=== PATIENT | female | born 1950 | race Caucasian/White ===

== ENCOUNTER 2023-05-28 17:30 | Emergency (ER) | payer MEDICARE, BC, SELFPAY ==
[2023-05-28 17:36] VITALS: BP 144/77; PULSE 96; RESP 18; TEMP 36.4; O2SAT 95; BMI 25.7
--- NOTE | 2023-05-28 17:43 | CRLHL7_ITS ---
For Patients: As a result of the Century Cures Act, medical imaging exams and procedure reports are released immediately into your electronic medical record. You may view this report before your referring provider. If you have questions, please contact your health care provider. Indication: Trauma. Technique: Left hand, 3 views. Comparison: None. Findings/Impression: Bones: Acute mildly displaced 5th digit proximal phalangeal diaphyseal fracture with volar apex angulation. Joint spaces: Unremarkable. Soft tissues: Unremarkable. Dictated by Ollie Winston MD @ 05/28/2023 6:37:54 PM (Electronically Signed)
--- NOTE | 2023-05-28 17:45 | ED_ITS ---
HPI - Fall General Chief Complaint: Fall/Minor Trauma Stated Complaint: L finger injury Time Seen by Provider: 05/28/23 17:37 History of Present Illness HPI Narrative: This 73-year-old female comes in with an injury to her left hand. She was walking through the door and tripped. She fell forward onto her outstretched left hand and comes in with an injury at the MP joint of the left 5th finger. Her finger is angulated away from the others typical of a fracture or dislocation. The patient states that she did hit her head but did not have loss of consciousness. She is not on any anticoagulants. She was able to get up and ambulate normally. She does not report a headache or any other symptoms. She does have an abrasion on her left knee. Related Data Previous Rx's Medication Instructions Recorded cephalexin 500 mg capsule 500 mg PO TID 5 days #15 caps 05/28/23 Allergies Allergy/AdvReac Type Severity Reaction Status Date / Time levofloxacin [From Levaquin] Allergy Verified 05/28/23 17:36 Review of Systems Status of ROS: Reports: 10 or more systems reviewed and unremarkable except as noted in History and below Narrative: Constitutional: No fevers, no weight gain or loss. Eyes: No discharge. No vision changes. HENT: No congestion, no sore throat, no ear pain. Cardiovascular: No chest pain, no palpitations. Respiratory: No shortness of breath, no wheezes, no cough. Gastrointestinal: No abdominal pain, no vomiting, no diarrhea. Genitourinary: No dysuria, no hematuria. Musculoskeletal: Injury of the left hand at the 5th MP joint. Skin: No rashes, no pruritis. Neurological: No dizziness, weakness, sensory change, speech change. Endo/Heme/Allergies: No bruising or bleeding. No polydipsia. Pysch: no suicidality, no anxiety, no insomnia. All other systems reviewed and are negative. PFSH PFSH Social History Smoking Status: Never smoker How often do you have a drink containing alcohol: never AUDIT-C Alcohol total score: 0 Non-prescribed substance use: denies use service: No Exam Narrative: Exam Narrative: Constitutional: Well-developed, well-nourished, no acute distress. HEENT: Normocephalic, atraumatic. Neck: Normal range of motion. Nontender. Supple. Heart: Regular. No murmurs. Normal rate. Intact distal pulses. Lungs: Clear to auscultation. No chest discomfort. No wheezes, rhonchi, or rales. Abdomen: Normal bowel sounds. Nontender. No rebound tenderness. Genitalia: Deferred. Back: No midline tenderness. Normal range of motion. Extremities: The left little finger is displaced away from the others at the MP joint. Decreased range of motion at this joint. There is a small skin injury on the dorsal aspect of this left little finger. Superficial abrasion over the left anterior knee. Skin: Intact. No rash. Warm. No erythema or pallor. Neurologic: No altered sensation. No weakness. Alert and oriented. Psychiatric: No suicidality. No anxiety or depression. No insomnia. Nursing notes and vitals signs are reviewed. Const: Vital Signs, click to edit/add: Vital Signs - 24 hr 05/28/23 17:36 Temperature 97.5 F L Pulse Rate [Right Pulse Oximeter] 96 Respiratory Rate 18 Blood Pressure [Ri ght Upper Arm] 144/77 H Pulse Oximetry 95 Oxygen Delivery Me thod Room Air Course Vital Signs Vital signs: Initial Vital Signs Temperature 97.5 F L 05/28/23 17:36 Temperature Source Temporal Artery Scan 05/28/23 17:36 Pulse Rate 96 05/28/23 17:36 Respiratory Rate 18 05/28/23 17:36 Blood Pressure 144/77 H 05/28/23 17:36 Blood Pressure Mean 99 05/28/23 17:36 Blood Pressure Position Sitting 05/28/23 17:36 Pulse Oximetry 95 05/28/23 17:36 Oxygen Delivery Method Room Air 05/28/23 17:36 Vital Signs Temperature 97.5 F L 05/28/23 17:36 Pulse Rate 96 05/28/23 17:36 Respiratory Rate 18 05/28/23 17:36 Blood Pressure 144/77 H 05/28/23 17:36 Pulse Oximetry 95 05/28/23 17:36 Oxygen Delivery Method Room Air 05/28/23 17:36 Temperature 97.5 F L 05/28/23 17:36 Pulse Rate 96 05/28/23 17:36 Respiratory Rate 18 05/28/23 17:36 Blood Pressure 144/77 H 05/28/23 17:36 Pulse Oximetry 95 05/28/23 17:36 Oxygen Delivery Method Room Air 05/28/23 17:36 MDM - Fall MDM Narrative Medical decision making narrative: This patient comes in for evaluation of the finger injury. She fell with an outstretched arm. She does not have any other significant injury that requires workup. She does have an abrasion on her left knee which was cleansed and bandaged. The dorsal aspect of the proximal portion of her left little finger has a small skin wound that is likely related to the fracture. X-ray imaging does show a fracture of the proximal portion of this finger with some angulatio n. I discussed options for placing this finger in a better position. I did include some pain relieving options with the patient but she stated that she preferred to have me reduce the finger in a better position without any medicines for pain. I did so with what appears to be a good position for finger. She did not have much discomfort in doing this. Follow-up x-ray does show good alignment. The patient is placed in a finger splint and her little finger is jamilah-taped also to the ring finger. I advised her to follow-up with orthopedic clinic. Mttx-ajr-ikkypha medications as needed and directed may also be used. The small skin wound that can be viewed as a open fracture of this finger. She did receive a prescription for Keflex. Discharge Plan Discharge Clinical Impression: Fracture of finger of left hand Patient Disposition: Home, Self-Care Condition: Improved Additional Instructions: Take medication as prescribed. Use afia-icx-mpxzowu medicines also as needed and directed for pain relief. Keep splint in place. Follow-up with orthopedic clinic by calling [phone] for appointment. Return if worsening. Prescriptions: New cephalexin 500 mg capsule 500 mg PO TID 5 Days Qty: 15 0RF Follow Up/Referrals: Danielle Taylor MD [Primary Care Provider] - Stand Alone Forms: [employer] Info Instructions
--- NOTE | 2023-05-28 18:38 | CRLHL7_ITS ---
For Patients: As a result of the Cures Act, medical imaging exams and procedure reports are released immediately into your electronic medical record. You may view this report before your referring provider. If you have questions, please contact your health care provider. INDICATION: Postreduction of left 5th digit. TECHNIQUE: Left small finger 3 views. Permanently recorded images are archived. COMPARISON: Left hand radiographs from the same day. FINDINGS/IMPRESSION : Interval reduction of the small finger proximal phalanx fracture into anatomic alignment. Soft tissue swelling about the small finger. No other significant bone or joint abnormality. Dictated by Jaquan Don MD @ 05/28/2023 7:17:50 PM (Electronically Signed)
--- NOTE | 2023-05-28 19:02 | ED.NURSE ---
Cleansed abrasion to knee with hibiclens, applied bacitractin, placed bandage on top.
[2023-05-28 19:22] VITALS: BP 142/64; PULSE 82; RESP 16; O2SAT 97
== END 2023-05-28 19:25 | disposition home or self-care (01) ==
PROVIDERS: Emergency Provider Emergency Medicine Emergency Medical Services; PCP Family Medicine
DX: S62.607A Fracture of unspecified phalanx of left little finger, initial encounter for closed fracture (principal); W18.30XA Fall on same level, unspecified, initial encounter
CPT/HCPCS: 29130; 73130; 73140; 99283; 99284

== ENCOUNTER 2023-05-29 16:57 | Emergency (ER) | payer MEDICARE, BC, SELFPAY ==
--- NOTE | 2023-05-29 17:38 | ED.NURSE ---
Patient's finger splint that was placed yesterday was cutting into her palm. She was fit with alternate splint.
[2023-05-29 17:41] VITALS: BP 104/64; PULSE 86; RESP 16; TEMP 36.2; O2SAT 98
--- NOTE | 2023-06-02 17:22 | ED.GENADULT ---
HPI - General Adult General Stated complaint: L finger pain Time Seen by Provider: 05/29/23 17:58 History of Present Illness HPI narrative: 73-year-old woman presenting to the emergency department due to discomfort of splint. Was seen yesterday and diagnosed with a displaced proximal 5th finger fracture here in this emergency department. This was reduced and splinted. The splint is now digging into her palm. I see Ms. Patton in the triage room due to busy emergency department. Related Data Previous Rx's Medication Instructions Recorded cephalexin 500 mg capsule 500 mg PO TID 5 days #15 caps 05/28/23 Allergies Allergy/AdvReac Type Severity Reaction Status Date / Time levofloxacin [From Levaquin] Allergy Verified 05/28/23 17:36 PFSH PFS Social History Smoking Status: Never smoker How often do you have a drink containing alcohol: never AUDIT-C Alcohol total score: 0 Non-prescribed substance use: denies use service: No Exam Narrative: Exam Narrative: Very pleasant. Positive affect. The alignment of the left 5th finger looks quite good. She is well-perfused peripherally. There is erythema and erosion initiating in the palmar surface skin ulnar side from the proximal-most aspect of the volar splint that was placed. Const: Documenting provider has reviewed patient's vital signs: yes Course Vital Signs Vital signs: Initial Vital Signs Temperature 97.2 F L 05/29/23 17:41 Temperature Source Temporal Artery Scan 05/29/23 17:41 Pulse Rate 86 05/29/23 17:41 Respiratory Rate 16 05/29/23 17:41 Blood Pressure 104/64 05/29/23 17:41 Blood Pressure Mean 77 05/29/23 17:41 Pulse Oximetry 98 05/29/23 17:41 Oxygen Delivery Method Room Air 05/29/23 17:41 Vital Signs Temperature 97.2 F L 05/29/23 17:41 Pulse Rate 86 05/29/23 17:41 Respiratory Rate 16 05/29/23 17:41 Blood Pressure 104/64 05/29/23 17:41 Pulse Oximetry 98 05/29/23 17:41 Oxygen Delivery Method Room Air 05/29/23 17:41 Temperature 97.2 F L 05/29/23 17:41 Pulse Rate 86 05/29/23 17:41 Respiratory Rate 16 05/29/23 17:41 Blood Pressure 104/64 05/29/23 17:41 Pulse Oximetry 98 05/29/23 17:41 Oxygen Delivery Method Room Air 05/29/23 17:41 Medical Decision Making MDM Narrative Medical decision making narrative: I review images needing confirmation of location of fracture. Notes are reviewed. Switching over to a dorsal placement for her splint I cut foam-backed aluminum to fit. Smooth-taped to the 4th finger. Secured around palm. She notes being much more comfortable. I think this will secure her finger/fracture appropriately however even better might be an ulnar gutter splint not extending past the wrist. I did offer this but Ms. Patton needs to get moving to another appointment and she is quite comfortable with this new splint. See patient discharge plan Medical Records Medical records reviewed: Yes I reviewed the patient's medical records Discharge Plan Discharge Clinical Impression: Encounter for assessment of cast Patient Disposition: Home, Self-Care Condition: Improved Additional Instructions: Recommending follow-up in a couple of weeks to confirm proper healing. Prescriptions: No Action cephalexin 500 mg capsule 500 mg PO TID 5 Days Qty: 15 0RF Follow Up/Referrals: Danielle Taylor MD [Primary Care Provider] -
== END 2023-05-29 17:59 | disposition home or self-care (01) ==
PROVIDERS: Emergency Provider Family Medicine; PCP Family Medicine
DX: Z46.89 Encounter for fitting and adjustment of other specified devices (principal)
CPT/HCPCS: 99281

== ENCOUNTER 2023-07-20 12:45 | Outpatient (RCR) | payer MEDICARE, BC, SELFPAY ==
--- NOTE | 2023-07-20 13:31 | OT.OPOE ---
OT Outpatient Ortho Eval OT Outpatient Ortho Eval* Start: 07/20/23 11:48 Freq: Status: Active Protocol: Document 07/20/23 11:49 LEILANI (Rec: 07/20/23 13:29 LEILANI [id number]) E-signed By Anastasiya Farley OTR/L, CLT OT OP Ortho Eval Details Complexity Complexity Low Insurance Information Insurance Information Medicare B Outpatient History/Precautions Current Condition/Medical Diagnosis Referring Provider Dr. Ru Peralta Treatment Diagnosis M25.642 Stiffness of Left Hand , Lack of coordination R27.8 Date of Onset 05/28/23 Other Precautions Copied from chart on 06/17/23 provider note IMAGING: PA, Lateral, and Oblique views of the left hand little finger were obtained today. These show the transverse fracture at the midshaft of the proximal phalanx has some recurrent apex volar angulation, no real displacement PA, Lateral, and Oblique views of the left hand were obtained on from [facility] pre and post reduction. These show a transverse fracture of the midshaft of the proximal phalanx with apex volar angulation. The post- reduction films show an excellent reduction. ASSESSMENT: Left hand small finger proximal phalanx fracture PLAN: I told the patient that I think the amount of angulation is acceptable. This will leave her with some permanent flexion contracture at the PIP joint. I anticipate this will not affect her function. She agrees and wishes to continue non operative management. Therefore, a new volarly placed Alumafoam splint was applied. She has a hiking trip in [facility] planned for 2 weeks from now. I would like to see her back when she returns to [place] with three views of her left hand, small finger. A prescription for occupational therapy was sent to begin at that point. Other Conditions Fracture of finger of left hand (Acute) S62.609A - Fracture of unspecified phalanx of unspecified finger, initial encounter for closed fracture (ICD-10) S/P lumpectomy, right breast ( Acute) 06/15/2023 Z98.890 - Other specified postprocedural states (ICD-10) Vasovagal episode (Acute) R55 - Syncope and collapse ( ICD-10) Exacerbation of asthma (Acute) J45.901 - Unspecified asthma with (acute) exacerbation (ICD -10) Erysipelas (Acute 03/15/13) A46 - Erysipelas (ICD-10) Cellulitis (Acute) L03.90 - Cellulitis, unspecified (ICD-10) Medical History (Reviewed @ 09:42 by Lashell Ortiz ~ RN, RN) Fracture of left wrist S62.102A - Fracture of unspecified carpal bone, left wrist, initial encounter for closed fracture (ICD-10) Cancer of left breast (05/2008 ) C50.912 - Malignant neoplasm of unspecified site of left female breast (ICD-10) Medical/Functional History Medical History Reviewed Yes Prior Level of Function/Mobility Patient is fully Indep with ADLs and IADLs Social History Employment Status Retired Ortho Subjective Subjective Subjective I think my little finger is doing pretty well, I feel fine doing a program on my own Pain Assessment Pain Present Pain Present No Pain Reported Goniometric Comments Goniometric Comments Goniometric Comments little finger of the L hand DIP 0/62 degrees little finger of the L hand PIP 12-82 degrees little finger of the L hand MCP 4-90 degrees Hand Pinch/Corrections Nurse Strength Hand Left Corrections Nurse Strength Position 1 (lbs) 26 Corrections Nurse Strength Position 2 (lbs) 31 Lateral Pinch Strength (lbs) 11 Three Point Pinch (lbs) 10 Tip Pinch Strength (lbs) 9 Right Corrections Nurse Strength Position 1 (lbs) 40 Corrections Nurse Strength Position 2 (lbs) 43 Lateral Pinch Strength (lbs) 11 Three Point Pinch (lbs) 11 Tip Pinch Strength (lbs) 9 OT Problems Problems Problems Decreased Strength,Decreased Range of Motion,Decreased Dexterity,Decreased Coordination,Lifting,Gripping, Pinching Patient Potential Good Assessment Assessment Assessment 73 year old female had a mechanical fall on 05/28/2023 and injured her left hand small finger. This was reduced in the emergency department. She was placed in an Alumafoam splint. She has never injured this finger previously. She is right-hand dominant. She is now 7.5 weeks post op from [facility]. Goni measurements of the little finger (L hand) were as follows: little finger of the L hand DIP 0/62 degrees little finger of the L hand PIP 12-82 degrees little finger of the L hand MCP 4-90 degrees POC written as PRN-as patient expressed the desire to rehab on her own with no formal therapy sessions scheduled past today. Occupational Therapy Treatment Plan - OP Potential Rehabilitation Potential Good Barriers Barriers to goal attainment NONE Set Goals Goals Set with Patient Yes Goals Goals 1. Patient will gain L hand little finger motion from EVAL measurements 07/20/23 little finger of the L hand DIP 0/62 degrees little finger of the L hand PIP 12-82 degrees little finger of the L hand MCP 4-90 degrees Target Date 8 weeks Treatment Plan Treatment Plan Evaluation,Edema Control,Joint Mobilization,Manual Therapy, Ultrasound,Therapeutic Exercise,Education Expected Frequency As Needed Expected Duration 8-10 Weeks Home Program Home Program Home Program Initiated Home Program Specifics Access Code: [email or web address] URL: [email or web address] Date: 07/20/2023 Prepared by: Anastasiya Farley Exercises - Seated Finger Composite Flexion Stretch - 1 x daily - 7 x weekly - 3 sets - 10 reps - Seated Finger DIP Flexion AROM with Blocking - 1 x daily - 7 x weekly - 3 sets - 10 reps - Seated Claw Fist AROM - 1 x daily - 7 x weekly - 3 sets - 10 reps - Seated Finger PIP AROM - 1 x daily - 7 x weekly - 3 sets - 10 reps - Finger PIP Flexion Extension with Blocking - 1 x daily - 7 x weekly - 3 sets - 10 reps - Hand PROM Finger Extension - 1 x daily - 7 x weekly - 3 sets - 10 reps - Seated Finger MP Extension AROM with Blocking - 1 x daily - 7 x weekly - 3 sets - 10 reps - Seated Finger PIP Flexion PROM - 1 x daily - 7 x weekly - 3 sets - 10 reps Certification Certification I Certify That: Therapy Services Provided, Therapy Plan Established, Therapy Plan Reviewed Recertification Information Recertification Information Initial Certification Date 07/20/23 Recertification Due Date 10/18/23 Provider Signature Shows Agreement With POC & Medical Necessity Physician Comment/Change Comment or Changes Physician NPI Number #
== END 2023-11-17 23:59 | disposition home or self-care (01) ==
PROVIDERS: PCP Family Medicine; Visit Provider Orthopaedic Surgery
DX: S62.607A Fracture of unspecified phalanx of left little finger, initial encounter for closed fracture (principal); M25.642 Stiffness of left hand, not elsewhere classified; R27.8 Other lack of coordination; Z51.89 Encounter for other specified aftercare
CPT/HCPCS: 97110; 97165; X5282

== ENCOUNTER 2023-12-24 12:27 | Emergency (ER) | payer MEDICARE, BC, SELFPAY ==
[2023-12-24 12:29] VITALS: BP 105/65; PULSE 100; RESP 16; TEMP 36.9; O2SAT 98; BMI 25.2
--- NOTE | 2023-12-24 12:52 | ED.GENADULT ---
HPI - General Adult General Chief complaint: Extremity Pain/Injury, Upper Stated complaint: Swollen L arm Time Seen by Provider: 12/24/23 12:37 History of Present Illness HPI narrative: This 73-year-old female comes in with redness and warmth in her left upper extremity. She has history of breast cancer and chronic lymphedema in this arm. She does not report any fevers. She started to notice these symptoms yesterday. Related Data Previous Rx's Medication Instructions Recorded cephalexin 500 mg capsule 500 mg PO QID #30 caps 12/24/23 Allergies Allergy/AdvReac Type Severity Reaction Status Date / Time giovana flavor Allergy Severe Swelling Verified 10/21/23 09:39 of Lip/Tongue/Throat parsley Allergy Severe Swelling Verified 10/21/23 09:39 of Lip/Tongue/Throat rice Allergy Severe Swelling Verified 10/21/23 09:39 of Lip/Tongue/Throat wheat dextrin Allergy Severe Swelling Verified 10/21/23 09:39 [From Benefiber (wheat of dextrin)] Lip/Tongue/Throat levofloxacin [From Levaquin] Allergy Verified 10/21/23 09:39 Review of Systems Status of ROS: Reports: 10 or more systems reviewed and unremarkable except as noted in History and below Narrative: Constitutional: No fevers, no weight gain or loss. Eyes: No discharge. No vision changes. HENT: No congestion, no sore throat, no ear pain. Cardiovascular: No chest pain, no palpitations. Respiratory: No shortness of breath, no wheezes, no cough. Gastrointestinal: No abdominal pain, no vomiting, no diarrhea. Genitourinary: No dysuria, no hematuria. Musculoskeletal: Normal range of motion. Skin: No rashes, no pruritis. Erythema and warmth in the left upper extremity. Neurological: No dizziness, weakness, sensory change, speech change. Endo/Heme/Allergies: No bruising or bleeding. No polydipsia. Pysch: no suicidality, no anxiety, no insomnia. All other systems reviewed and are negative. [facility] Medical History Fracture of left wrist ?S62.102A - Fracture of unspecified carpal bone, left wrist, initial encounter for closed fracture (ICD-10) Cancer of left breast (05/2008) ?C50.912 - Malignant neoplasm of unspecified site of left female breast (ICD-10) Surgical History Previous section ?Z98.891 - History of uterine scar from previous surgery (ICD-10) History of appendectomy ?Z90.49 - Acquired absence of other specified parts of digestive tract (ICD-10) History of lumpectomy of left breast (06/03/08) ?Z98.890 - Other specified postprocedural states (ICD-10) History of reduction of closed fracture (02/03/19) ?Z87.81 - Personal history of (healed) traumatic fracture (ICD-10) Family History Maternal Grandmother Colon cancer Social History Smoking Status: Never smoker How often do you have a drink containing alcohol: never AUDIT-C Alcohol total score: 0 Non-prescribed substance use: denies use service: No Exam Narrative: Exam Narrative: Constitutional: Well-developed, well-nourished, no acute distress. HEENT: Normocephalic, atraumatic. Neck: Normal range of motion. Nontender. Supple. Heart: Regular. No murmurs. Normal rate. Intact distal pulses. Lungs: Clear to auscultation. No chest discomfort. No wheezes, rhonchi, or rales. Abdomen: Normal bowel sounds. Nontender. No rebound tenderness. Genitalia: Deferred. Back: No midline tenderness. Normal range of motion. Extremities: Normal range of motion. No injury. Skin: Intact. Erythema in the left upper extremity extending from the elbow up toward the shoulder on the dorsal aspect primarily. She also has some small area of erythema on the left breast. Neurologic: No altered sensation. No weakness. Alert and oriented. Psychiatric: No suicidality. No anxiety or depression. No insomnia. Nursing notes and vitals signs are reviewed. Const: Vital Signs, click to edit/add: Vital Signs - 24 hr 12/24/23 12:29 Temperature 98.4 F Pulse Rate [Pulse Oximeter] 100 Respiratory Rate 16 Blood Pressure [Ri ght Upper Arm] 105/65 Pulse Oximetry 98 Oxygen Delivery Me thod Room Air Course Vital Signs Vital signs: Initial Vital Signs Temperature 98.4 F 12/24/23 12:29 Temperature Source Temporal Artery Scan 12/24/23 12:29 Pulse Rate 100 12/24/23 12:29 Respiratory Rate 16 12/24/23 12:29 Blood Pressure 105/65 12/24/23 12:29 Blood Pressure Mean 78 12/24/23 12:29 Blood Pressure Position Supine 12/24/23 12:29 Pulse Oximetry 98 12/24/23 12:29 Oxygen Delivery Method Room Air 12/24/23 12:29 Vital Signs Temperature 98.4 F 12/24/23 12:29 Pulse Rate 100 12/24/23 12:29 Respiratory Rate 16 12/24/23 12:29 Blood Pressure 105/65 12/24/23 12:29 Pulse Oximetry 98 12/24/23 12:29 Oxygen Delivery Method Room Air 12/24/23 12:29 Temperature 98.4 F 12/24/23 12:29 Pulse Rate 100 12/24/23 12:29 Respiratory Rate 16 12/24/23 12:29 Blood Pressure 105/65 12/24/23 12:29 Pulse Oximetry 98 12/24/23 12:29 Oxygen Delivery Method Room Air 12/24/23 12:29 Medical Decision Making MDM Narrative Medical decision making narrative: This patient comes in with symptoms typical of a cellulitis. She is at increased risk for this to occur given her history of breast cancer with surgery that caused chronic lymphedema in the left upper extremity. I did discuss lab and imaging options but these were declined for now in a process of shared decision making. Patient did receive a prescription for Keflex and I did describe findings that would indicate a need for return and re-evaluation. Discharge Plan Discharge Clinical Impression: Cellulitis Patient Disposition: Home, Self-Care Condition: Stable Additional Instructions: Take medication as prescribed. Follow up with MD or return if worsening. Prescriptions: New cephalexin 500 mg capsule 500 mg PO QID Qty: 30 0RF Follow Up/Referrals: Daneille Taylor MD [Primary Care Provider] - Stand Alone Forms: [employer] Info Instructions
== END 2023-12-24 13:26 | disposition home or self-care (01) ==
LOC: ED 13:13
PROVIDERS: Emergency Provider Emergency Medicine Emergency Medical Services; PCP Family Medicine
DX: L03.114 Cellulitis of left upper limb (principal)
CPT/HCPCS: 99283; 99284

== ENCOUNTER 2024-04-12 12:48 | Outpatient (RCR) | payer MEDICARE, BC, SELFPAY | END 2024-04-12 14:06 | disposition home or self-care (01) | PROVIDERS: PCP Family Medicine; Visit Provider Family Medicine | DX: M25.512 Pain in left shoulder (principal); Z51.89 Encounter for other specified aftercare | CPT/HCPCS: 97161; 97535 ==

== ENCOUNTER 2025-05-31 16:39 | Emergency (ER) | payer MEDICARE, BC, SELFPAY ==
--- OUTSIDE RECORDS SUMMARY | 2025-05-31 16:42 | XMS_ITS | Clinical Summary ---
Author Organization [email or web address] [facility] Address [address] [place] [address] Care Team Providers Care Driver Recruiter Name Role Phone Guero Amador Melissa Jean MD Primary Care Provider [phone] Allergies Active Allergy Reactions Criticality Noted Date Comments Levofloxacin Erythema facial erythema/itching [place] Flavor Unlisted Allergen (Include Detail In Comments) Angioedema 04/27/2008 Tabouli--shania cole boulgar Medications clobetasol 0.05% (TEMOVATE 0.05% OINTMENT) 0.05 % ointmentIndicati ons:Hand dermatitis Apply topically to affected area(s) two times daily. Apply to hand rash 30 g 11/24/19 23 Active Additional Information Patient taking differently:Topical BID,Apply to rash in multiple areas, Reported on 09/21/2024 Nystop powder Apply topically to affected area(s) each time if needed. 04/01/20 23 Active desonide 0.05% (TRIDESILON 0.05% CREAM) 0.05 % creamIndications :Hand dermatitis APPLY TO THE AFFECTED AREA UNDER THE ARMS AND GROIN AREA ONCE DAILY FOR UP TO TWO WEEKS. MAY REPEAT NEEDED FOR FLARE UPS. 15 g 07/02/20 23 Active buPROPion (WELLBUTRIN XL) 150 mg Extended-Release tabletIndication s:Anxiety Take 1 Tablet (150 mg) by mouth once daily in the morning. 90 Tablet 2 09/19/20 24 Active valACYclovir (VALTREX) 1 gram tabletIndication s:Cold sore TAKE 2 TABLETS BY MOUTH TWICE DAILY FOR 1 DAY 14 Tablet 2 09/22/20 24 Active triamcinolone 0.1 % lotionIndication s:Rash Apply topically to affected area(s) three times daily. 120 mL 11/02/19 25 Active triamcinolone 0.1 % ointmentIndicati ons:Hand dermatitis Apply topically to affected area(s) three times daily. 80 g 11/02/19 25 Active loratadine (CLARITIN) 10 mg tabletIndication s:Hand dermatitis,Rash Take 1 Tablet (10 mg) by mouth once daily. 30 Tablet 11/02/19 25 Active albuterol HFA (Ventolin HFA) 90 mcg/actuation inhalerIndicatio ns:Mild intermittent reactive airway disease without complication (HC) Inhale 2 Puffs by mouth every 4 hours if needed for Shortness Of Breath. 2 Each 3 04/24/20 25 Active EPINEPHrine (EPIPEN) 0.3 mg/0.3 mL auto-injectorInd ications:Bee sting allergy Inject 0.3 mg (1 Pen) intramuscular one time if needed for Allergic Reaction. 2 Each 1 04/24/20 25 Active hydrOXYzine HCL (ATARAX) 25 mg tabletIndication s:Hand dermatitis Take 1 Tablet (25 mg) by mouth at bedtime if needed for Itching. 90 Tablet 3 04/24/20 25 Active atovaquone-progu daisy (250-100 mg) (MALARONE) 250-100 mg tabletIndication s:Pharmacologic therapy Take 1 Tablet by mouth once daily. Begin 1-2 days before and continue until 1 week after exposure for prevention of malaria. 18 Tablet 04/24/20 25 Active acetaZOLAMIDE (DIAMOX) 125 mg tabletIndication s:Counseling for travel Take 125-250 mg by mouth two times daily. Begin 1 day before through 2 days after arriving at highest altitude. 4 Tablet 04/24/20 25 Active Active Problems Problem Noted Date Diagnosed Date Malignant neoplasm of female breast 04/05/2024 Cold sore 04/05/2024 Reactive airway disease without complication 11/2023 Vulvar dermatitis 04/05/2024 Stage 3a chronic kidney disease 04/05/2024 Adenomatous colon polyp 08/23/2019 Overview (08/19/2022): Colonoscopy 08/2019 3 polyps, repeat in 3 years Colonoscopy 08/2022 2-SSA, repeat in 5 years History of MRSA infection 02/01/2019 Knee pain, right 01/12/2019 Closed compression fracture of thoracic vertebra 10/13/2015 Overview (10/13/2015): Mild to moderate compression fx T-12 Osteopenia 09/19/2013 Overview (07/28/2019): Osteopenia and elevated frax score. Recommendation for advanced pharmacologic therapy. Patient declined so I have recommended Calcium 1500 mg and Vitamin D 2000 units per day in divided doses - along with significant weigh bearing exercise regularly. Warts 09/05/2013 Bee sting allergy 09/05/2013 Lymphedema of arm 03/31/2013 Overview (03/31/2013): Recent Cellulitis left arm Tinea corporis 01/17/2013 Unspecified asthma, with exacerbation 04/25/2011 Malignant neoplasm of other specified sites of female breast 04/25/2008 [facility] 11/23/2007 Overview (05/16/2008): colonoscopy 05/16/2008 Recheck 10 yrs. Encounters Date Type Department Care Team Description 05/31/2025 Nurse Triage [facility] [address] [place] [address] Danielle Taylor MD Back Pain 05/01/2025 Telephone [facility] [address] [place] [address] Shaqra, Ana Catarina, DO Questions 04/30/2025 Refill [facility] [address] [place] [address] Shaqra, Ana Catarina, DO Refill Request (Acetazolamide) 04/29/2025 Refill [facility] [address] [place] [address] Shaqra, Ana Catarina, DO Refill Request (Acetazolamide) 04/29/2025 Refill [facility] [address] [place] [address] Shaqra, Ana Catarina, DO Refill Request (Acetazolamide) 04/28/2025 Refill [facility] [address] [facility] [place] [address] Shaqra, Ana Catarina, DO Refill Request (Acetazolamide) 04/27/2025 Refill [facility] [address] [facility] [place] [address] Shaqra, Ana Catarina, DO Refill Request (Acetazolamide) 04/26/2025 Refill [facility] [address] [facility] [place] [address] Shaqra, Ana Catarina, DO Refill Request (Acetazolamide) 04/25/2025 Refill [facility] [address] [facility] [place] [address] Shaqra, Ana Catarina, DO Refill Request (Acetazolamide) 04/24/2025 10:35 AM CDT Office Visit [facility] [address] [facility] [place] [address] Shaqra, Ana Catarina, DO Travel (Judge, [place] 05/16/25 to 05/29/25, [place] [facility] [place] [facility] 04/24/2025 Travel from Last 3 Months Immunizations Immunization Administration Dates Next Due COVID-19 VACCINE SPIKEVAX (M ODERNA 50MCG/0.5ML) 12YO+ PFS 02/11/2024 COVID-19 vaccine (KnightHavenBio NTech 30mcg/0.3mL) 12YO+ BIVALENT PF, MDV 07/25/2022 COVID-19 vaccine (Cavium-Bio NTech 30mcg/0.3mL) PF, MDV 09/05/2021 Hepatitis A (Adult) 05/18/2015,11/13/2014 Hepatitis B (Adult) 02/11/2024,01/14/2023,2021 Influenza Virus, Unspecified 08/23/2018 Influenza, High-dose Inactivated 09/21/2024,08/05 Influenza, High-dose Quadriv alent Inactivated 07/24/2023 Influenza, IIV3 (Age >=3 years) 07/29/2013,07/16,07/05/2011 Influenza, IIV4 07/24/2014 Influenza, Inactivated AIIV4 (Age 65+ Years) Preserv Free 07/25/2022,12/06/2021,06/14/2020 Influenza, Inactivated IIV3 (Age 65+ Years) Preserv Free 07/14/2019,06/02/2017 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,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 Pneumococcal Poly,23-Valent (Pneumovax) 06/14/20 20,11/13/2014 Pneumococcal conj 13-Valent (Prevnar 13) 018 RSV, Recombinant ADJ Reconst ituted (Arexvy 120MCG/0.5mL) 08/13/2023 Td (Age >=7 Years) 02/12/1998 Tdap 10/22/2018,10/22/2018,11/23/2007 Typhoid (injectable) 04/24/2025,12/06/2021 Yellow Fever 01/14/2023 Zoster (Shingrix-RZV, recombinant) 06/21/2020,,04/04/2020 Zoster (Zostavax-ZVL, live) 09/22/2011 Family History Medical History Relation Name Comments Cancer-breast Maternal Aunt 70's Cancer-colon Maternal Grandmother dx age 72 Cancer-ovarian Maternal Grandmother 70's yrs old Cancer-ovarian Sister 2 Damaris Simpson Cancer Sister 4 Lizz uterine cancer Alcohol/Drug No Family History Allergies No Family History Anesthesia Problem No Family History Arthritis No Family History Asthma No Family History Blood Disease No Family History Cancer-prostate No Family History Diabetes No Family History Heart Disease No Family History Hyperlipidemia No Family History Hypertension No Family History Psychiatric illness No Family History Seizures No Family History Stroke No Family History Thyroid Disease No Family History Relation Name Status Comments Brother Zackary Alive Father Micah (Age 94) Maternal Aunt Maternal Grandmother Mother Damaris Simpson Sister 1 Zonia Alive Sister 2 Mita Alive pt's twin Sister 3 Charito Alive Sister 4 Lizz Sister 5 Rebecca Alive Social History Tobacco Use Types Packs/Day Years Used Date Smoking Tobacco: Never Smokeless Tobacco: Never Tobacco Cessation:Counseling Given: Yes Alcohol Use Standard Drinks/Week Comments Not Currently 0 (1 standard drink = 0.6 oz pur e alcohol) PHQ-2 Answer Date Recorded PHQ-2 TOTAL SCORE 0 09/17/2023 Social Connections Answer Date Recorded Do you often feel lonely or isolated from those around you? 0 07/20/2024 Financial Resource Strain Answer Date R ecorded Difficulty of Paying Living Expenses 3 07/20/2024 Difficulty of Paying Living Expenses Not on file 07/20/2024 Food Insecurity Answer Date Recorded Do you worry your food will run out before you are able to buy more? 1 07/20/2024 Transportation Needs Answer Date Record ed Does lack of transportation keep you from medica l appointments? 1 07/20/2024 Does lack of transportation keep you from work, meetings or getting things that you need? 1 07/20/2024 Housing Stability Answer Date Recorded What is your housing situation today? 1 07/20/2024 Utilities Answer Date Recorded Do you have trouble paying f or utilities (for example, heat, electricity, water, phone)? 1 07/20/2024 Comments No Sex and Gender Information Value Date Recorded Sex Assigned at Not on file Legal Sex Female 5:26 AM TUNA PURSE SEINER Gender Identity Not on file Sexual Orientation Not on file Occupation Industry Job Start Date Job End Date TEACHER Not on file Not on file Not on file Obstetrics History Para Term AB IAB SAB Ectopic Multiple Livin g Live Births 6 5 1 1 5 Date Outcome GA Total Labor Labor/2nd/3rd Weight Sex Type Anes PTL Catarina A1 A5 Name Clin SAB Para Para Para Para Para Last Filed Vital Signs Vital Sign Reading Time Taken Comments Blood Pressure 114/70 04/24/2025 10:50 AM CDT Pulse 74 04/24/2025 10:50 AM CDT Temperature 36.6 C (97.8 F) 06/25/2023 11:19 AM CDT Respiratory Rate 16 06/25/2023 11:19 AM CDT Oxygen Saturation 98% 04/24/2025 10:50 AM CDT Inhaled Oxygen Concentration - - Weight 68.6 kg (151 lb 4.8 oz) 04/24/2025 10:50 AM CDT Height 157.8 cm (5' 2.13) 09/17/2023 8:07 AM CS T Body Mass Index 27.56 09/17/2023 8:07 AM TUNA PURSE SEINER Plan of Treatment Upcoming Encounters Date Type Department Care Team (Late st Contact Info) Description 06/01/2025 10:50 AM CDT Office Visit [facility] [address] [place] [address] Danielle Taylor MD [address] [place] [address] 06/13/2025 1:45 PM CDT Appointment [facility] [place] [facility] [address] [place] [address] Health Maintenance Due Date Last Done Comments COVID-19 vaccine series (2023- season) 2024 02/11/2024, 08/20/2023, 07/25/2022, Additional history exists BMI (ht and wt on same day) for age 18+ 09/17/2024 09/17/2023, 06/25/2023, 06/12/2023, Additional history exists Depression screening for age 12+ 09/17/2024 09/17/2023, 09/17/2023, 05/09/2022, Additional history exists Medicare Wellness for age 65+ 09/17/2024, 03/25/2022, 07/14/2019 Influenza Vaccine (#1) 2025 , 07/25/2022, 12/06/2021, Additional history exists Colonoscopy through age 75 08/13/202508/13, 08/13/2022, 08/13/2022, Additional history exists Lipids for age 45-75 09/17/2028 09/17/2023, 03/25/2022, 07/14/2019, Additional history exists Tetanus booster 10/22/2028 10/22/2018, 10/05, 11/23/2007, Additional history exists DEXA/DXA scan for age 65+ Completed 07/19/2019, 12/2012 Pneumococcal series for age 50+ Completed 06/14/2020, 08/30/2018, 11/13/2014 Zoster (shingles) series for age 50+ Completed 06/21/2020, 04/05/2020, 04/04/2020, Additional history exists Hepatitis C screening for ag e 18-79 Completed 06/12/2023 RSV vaccine for adults or Completed 08/13/2023 Hepatitis B series for 19+ Completed 02/10, 01/14/2023, 12/06/2021 Medical Devices Implanted Type Area Statistician Mathematical Device Identifier Shelf Expiration Date Model / Serial / Lot Port X Port Mri 6fr Venous Cath Kit [id number] - [id number] Implanted:Qty: 1 on 07/04/2008 at [facility] [employer] [id number] / / [id number] Procedures Procedure Name Priority Date/Time Associated Diagnosis Comments LIPID PANEL W REFLEX MEASURED LDL Routine 09/17/2023 10:54 AM TUNA PURSE SEINER Lipid screening ANTI HCV Routine 06/12/2023 4:06 PM CDT Need for hepatitis C screening test COLONOSCOPY SCREENING Routine 08/13/2022 7:30 AM TUNA PURSE SEINER History of colon polyps XR DXA BONE DENSITY 2 SITES AXIAL Routine 07/19/2019 2:49 PM CDT Menopause from Last 3 Months or Most Recently Relevant to Health Maintenance Results * LIPID PANEL W REFLEX MEASURED LDL (09/17/2023 10:54 AM TUNA PURSE SEINER) CHOLESTEROL,TOTAL 174 100 - 199 mg/dL 09/17/2023 6:19 PM TUNA PURSE SEINER [facility] [employer] [facility] Comment: Cholesterol, Total Reference Ranges Desirable <200 mg/dL Borderline 200-239 mg/dL High >=240 mg/dL TRIGLYCERIDES 48 <150 mg/dL 09/17/2023 6:19 PM TUNA PURSE SEINER [facility] [employer] [facility] HDL CHOLESTEROL 85 >40 mg/dL 6:19 PM TUNA PURSE SEINER [facility] [employer] [facility] NON-HDL CHOLESTEROL 89 <145 mg/dl 09/17/2023 6:19 PM [facility] CHOL/HDL RATIO 2.05 <4.50 09/17/2023 6:19 PM TUNA PURSE SEINER [facility] LDL CHOLESTEROL 79 <=130 mg/dL 09/17/2023 6:19 PM TUNA PURSE SEINER [facility] [employer] [facility] VLDL CHOLESTEROL 10 <=30 mg/dL 09/17/2023 6:19 PM TUNA PURSE SEINER [facility] PROVIDER ORDERED STATUS RANDOM 09/17/2023 6:19 PM TUNA PURSE SEINER [facility] Blood BLOOD SPECIMEN / Unknown Venipuncture / Unknown 09/17/2023 10:54 AM TUNA PURSE SEINER 09/17/2023 10:56 AM TUNA PURSE SEINER us Danielle Taylor MD CHEMISTRY Final Resul t [facility] [address] [place] [id number], [place] * ANTI HCV (06/12/2023 4:06 PM CDT) HEPATITIS C ANTIBODY Non-Reacti ve Non-React darci 06/15/2023 11:33 PM CDT [facility] Comment:Please note, per www .CDC.gov: If a patient is known to be at high risk of HCV infection, or is symptomatic, and the physician's suspicion of HCV infection is high, HCV RNA testing is often employed and is of diagnostic value, even after an initial negative anti-HCV test result. Blood BLOOD SPECIMEN / Unknown Venipuncture / Unknown 06/12/2023 4:06 PM CDT 06/12/2023 4:07 PM CDT us Stephon Galvez MD SEND OUTS Final Res ult [facility] SENDOUT INTERNAL ZIP [address] [place] [id number] * COLONOSCOPY (08/13/2022 7:50 AM TUNA PURSE SEINER) 08/13/2022 7:50 AM TUNA PURSE SEINER Narrative Transcriptions Tonny Wolfe MD - 08/13/2022 8:36 AM CST Patient Name: Heather Patton Procedure Date: 08/13/2022 Gender: Female Date of : 1950 Admit Type: Outpatient Procedure: Colonoscopy Proceduralist: Tonny Wolfe MD , Angelita García RN(Nurse), Jennifer Galvez (Nurse) Referring MD: Danielle Taylor Indications/Pre-Op Diagnosis: High risk colon cancer surveillance:Personal history of sessile serrated colon polyp(less than 10 mm in size) with no dysplasia, Last colonoscopy: August 2019 Medications: Fentanyl 100 micrograms IV, Midazolam 2 mgIV, The level of sedation administered wasmoderate Procedure Description: The patient had risks, benefits and alternatives explained to andgave informed consent. The patient had a stable cardiopulmonary status and judged an adequate candidate for conscious sedation. The endoscope [id number]-[id number] [id number] was passed through the anus andadvanced to the cecum, identified by appendiceal orifice and ileocecal valve.The colonoscopy was performed without difficulty. The patient toleratedthe procedure well. The quality of the bowel preparation was good. The ileocecal valve, appendiceal orifice, and rectum were photographed. Complications: No immediate complications. Estimated Blood Loss & Specimen: Estimated blood loss: none. Specimen collected - Yes and sent to Laboratory Findings: The perianal and digital rectal examinations were normal. Two sessile polyps were found in the transverse colon. The polypswere 3 mm in size. These polyps were removed with a cold snare. Resectionand retrieval were complete. Scattered small and large-mouthed diverticula were found in theentire colon. A 3 mm polyp was found in the sigmoid colon. The polyp was sessile.The polyp was removed with a cold snare. Resection was complete, but the polyp tissue was not retrieved. The exam was otherwise without abnormality on direct and retroflexion views. Impressions/Post-Op Diagnosis: - Two 3 mm polyps in the transverse colon, removed with a cold snare. Resected and retrieved. - Diverticulosis in the entire examined colon. - One 3 mm polyp in the sigmoid colon, removed with a cold snare. Complete resection. Polyp tissue not retrieved. - The examination was otherwise normal on direct and retroflexionviews. Recommendation: - Patient has a contact number available for emergencies. The signsand symptoms of potential delayed complications were discussed with the patient. Return to normal activities tomorrow. Written discharge instructions were provided to the patient. - Resume previous diet. - Continue present medications. - Await pathology results. - Repeat colonoscopy is recommended for surveillance. The colonoscopy date will be determined after pathology results from today's exambecome available for review. Moderate Sedation: A time out was performed before the procedure. Moderate (conscious) sedation was administered by the endoscopy nurse and supervised bythe endoscopist. The following parameters were monitored: oxygensaturation, heart rate, blood pressure, EKG, CO2, respiratory rate, adequacy of pulmonary ventilation and reponse to care. Please refer to the patient's medical record flowsheets and nursing notes for moderate sedation details. Total physician intraservice time was 23 minutes. Tonny Wolfe MD 08/13/2022 8:36:36 AM This report has been signed electronically. Note Initiated On: 08/13/2022 7:50 AM Procedure Code(s): --- Professional --- 39383, Colonoscopy, flexible; with removalof tumor(s), polyp(s), or other lesion(s) bysnare technique Diagnosis Code(s): --- Professional --- Z86.010, Personal history of colonicpolyps D12.3, Benign neoplasm of transverse colon (hepatic flexure or splenic flexure) D12.5, Benign neoplasm of sigmoid colon K57.30, Diverticulosis of large intestine without perforation or abscess withoutbleeding CPT copyright 2020 [employer]. All rights reserved. The codes documented in this report are preliminary and upon labor commissioner reviewmay be revised to meet current compliance requirements. Scope In: 8:09:22 AM Scope Withdrawal Time 0 hours 15 minutes 5 seconds Scope Out: 8:30:54 AM us Tonny Wolfe MD PROCEDURE ORD Final Res ult * (ABNORMAL) XR DXA BONE DENSITY 2 SITES AXIAL [22098.1] (07/19/2019 2:49 PM CDT) Anatomical Region Laterality Modality Spine, HIPS, HIPL, HIPR Other Narrative 07/29/2019 2:17 PM CDT Please see scanned document for results of this study. us Danielle Taylor MD DEXA Final Resul t from Last 3 Months or Most Recently Relevant to Health Maintenance Insurance MEDICARE PART A HB ONLY MEDICARE PART B HB ONLY MEDICARE PB ONLY [employer] [place] [place] [employer] Care Teams Driver Recruiter Relationship Specialty Start Date End Date Danielle Taylor MD [address] [place] [address] PCP - General Family Practice 04/27/17 Guero Amador Oncology Hematology and Oncology 08/30/12
[2025-05-31 16:48] VITALS: BP 152/82; PULSE 82; RESP 16; TEMP 36.6; O2SAT 93; BMI 26.4
--- NOTE | 2025-05-31 16:49 | ED_ITS ---
HPI - General Adult General Time Seen by Provider: 16:49 Date Seen: 05/31/25 Chief complaint: Unspecified Complaint, Adult Stated complaint: Left side pain front and back, nausea ribs hurt Time Seen by Provider: 05/31/25 16:47 Source: patient Mode of arrival: ambulatory Limitations: no limitations History of Present Illness HPI narrative: 75-year-old female who comes in today with rib pain and nausea. Patient was recently traveling, notes yesterday she started having some nausea as well as some pain in the left side of the back. Pain in the back is worse with movement and worse with breathing, no shortness of breath. Denies falls or injuries. No fever chills, no urinary symptoms. Has taken Tylenol for this. Related Data Home Medications ?Medication ?Instructions ?Recorded ?Confirmed malaria pills PO 05/04/24 05/10/25 Previous Rx's ?Medication ?Instructions ?Recorded azelastine 0.05 % eye drops 1 drp ophthalmic (eye) BID #6 mL 05/04/24 lidocaine 5 % topical patch 1 patch topical DAILY #15 ea 05/31/25 (Lidoderm) Allergies Allergy/AdvReac Type Severity Reaction Status Date / Time giovana flavor Allergy Severe Swelling Verified 05/31/25 16:48 of Lip/Tongue/Throat levofloxacin (From Levaquin) Allergy Verified 05/31/25 16:48 [facility] Medical History Fracture of left wrist ?S62.102A - Fracture of unspecified carpal bone, left wrist, initial encounter for closed fracture (ICD-10) Cancer of left breast (05/2008) ?C50.912 - Malignant neoplasm of unspecified site of left female breast (ICD- 10) Surgical History Previous section ?Z98.891 - History of uterine scar from previous surgery (ICD-10) History of appendectomy ?Z90.49 - Acquired absence of other specified parts of digestive tract (ICD- 10) History of lumpectomy of left breast (06/03/08) ?Z98.890 - Other specified postprocedural states (ICD-10) History of reduction of closed fracture (02/03/19) ?Z87.81 - Personal history of (healed) traumatic fracture (ICD-10) Family History Maternal Grandmother Colon cancer Social History Smoking Status: Never smoker Do you use any of these nicotine containing products: None Second hand tobacco smoke exposure: No How often do you have a drink containing alcohol: never AUDIT-C Alcohol total score: 0 Non-prescribed substance use: denies use service: No Exam Narrative: Exam Narrative: General: Well-developed and well-nourished, appears uncomfortable with movement Head: Atraumatic and normocephalic Eyes: Pupils are equal reactive, extraocular motions intact, conjunctiva clear ENT: External nose and ears are normal, posterior pharynx without erythema or exudate Neck: No midline cervical tenderness, full spontaneous range of motion the neck, trachea midline, no adenopathy Heart: Regular rate and rhythm no murmurs or thrills Lungs: Clear to auscultation bilaterally without wheezes or crackles Abdomen: Soft, nontender, nondistended with active bowel sounds Musculoskeletal: Tenderness of the left posterior lower ribs, no midline lumbar thoracic tenderness, no CVA tenderness to percussion Neurologic: Awake, alert, and oriented x3, no gross focal neurologic deficits, cranial nerves intact as tested Psych: Mood and affect are appropriate Skin: No rashes Const: Vital Signs, click to edit/add: Vital Signs - 24 hr 05/31/25 16:48 Temperature 98 F Pulse Rate [Pulse Oximeter] 82 Respiratory Rate 16 Blood Pressure [Ri ght Upper Arm] 152/82 H Pulse Oximetry 93 Oxygen Delivery Me thod Room Air Course Course ED Course: Reviewed most recent primary care visit from April 24 when patient was planning to travel to [place] for about 2 weeks returning 05/29/2025. Patient presents today with nausea and left-sided back pain. This started yesterday. Worse with movement, worse with taking big breath, does not feel short of breath. On exam, no tachycardia, oxygen saturations are little bit low, pain is reproducible with palpation. Symptoms are likely related to musculoskeletal pain but given recent travel, cannot exclude pulmonary embolism. Labs and D-dimer ordered along with Toradol and x-ray initially, proceed with CT PE study if D-dimer is positive. Reevaluation(s) Time of Reevaluation #1: 17:33 Reevaluation #1: Chest x-ray independently interpreted by me with trace bilateral pleural effusions, no hemothorax, pneumothorax, or acute bony abnormality. Time of Reevaluation #2: 18:06 Reevaluation #2: Patient recheck, she is declined lab testing today. We discussed risks of pulmonary embolism and although clinically this is low likelihood, still cannot be excluded. Patient verbalizes understanding of this and like to defer lab anglea ting today. As patient has point tenderness reproducing her symptoms, no tachycardia, hypoxia, or shortness of breath, think this is reasonable for now. She has an appointment with her primary care doctor tomorrow and can have further testing if needed. Vital Signs Vital signs: Initial Vital Signs Temperature 98 F 05/31/25 16:48 Temperature Source Temporal Artery Scan 05/31/25 16:48 Pulse Rate 82 05/31/25 16:48 Respiratory Rate 16 05/31/25 16:48 Blood Pressure 152/82 H 05/31/25 16:48 Blood Pressure Mean 105 05/31/25 16:48 Pulse Oximetry 93 05/31/25 16:48 Oxygen Delivery Method Room Air 05/31/25 16:48 Vital Signs Temperature 98 F 05/31/25 16:48 Pulse Rate 82 05/31/25 16:48 Respiratory Rate 16 05/31/25 16:48 Blood Pressure 152/82 H 05/31/25 16:48 Pulse Oximetry 93 05/31/25 16:48 Oxygen Delivery Method Room Air 05/31/25 16:48 Temperature 98 F 05/31/25 16:48 Pulse Rate 82 05/31/25 16:48 Respiratory Rate 16 05/31/25 16:48 Blood Pressure 152/82 H 05/31/25 16:48 Pulse Oximetry 93 05/31/25 16:48 Oxygen Delivery Method Room Air 05/31/25 16:48 Medications Administered Medications: Discontinued Medications Generic Name Dose Route Start Last Admin Trade Name Freq PRN Reason Stop Dose Admin Lidocaine 1 patch 05/31/25 16:58 05/31/25 18:01 Lidocaine 5% Patch TRANSDERMA 05/31/25 16:59 1 patch ONCE ONE Administration Protocol Discharge Plan Discharge Clinical Impression: Acute left-sided thoracic back pain Patient Disposition: Home, Self-Care Condition: Stable Instructions: Thoracic Pain (ED) Additional Instructions: Gentle stretching, warm pack for comfort Follow-up tomorrow as scheduled Activity Level: Activity as Tolerated Discharge Diet: Regular Prescriptions: New lidocaine [Lidoderm] 5 % adhesive patch,medicated 1 patch topical DAILY Qty: 15 0RF Rx Instructions: leave on most painful area for up to 12 hrs No Action malaria pills PO azelastine 0.05 % drops 1 drp ophthalmic (eye) BID Qty: 6 0RF Follow Up/Referrals: Danielle Taylor MD [Primary Care Provider, Family Practice] Stand Alone Forms: [facility] Info Instructions
--- NOTE | 2025-05-31 16:58 | CRLHL7_ITS ---
For Patients: As a result of the Century Cures Act, medical imaging exams and procedure reports are released immediately into your electronic medical record. You may view this report before your referring provider. If you have questions, please contact your health care provider. INDICATION: Pain on left posterior side of ribs.. TECHNIQUE: Chest and left ribs 3 views. COMPARISON: June 13, 2017. FINDINGS: Cardiovascular and mediastinum: Heart size and vasculature are normal in caliber and appearance. Mediastinum is within normal limits. Lungs and pleural spaces: Lungs are clear. No sign of infiltrate or mass. Mild blunting of the bilateral CP angles may harbor small pleural effusions.. No pneumothorax. Bones and soft tissues: Detailed oblique images of the left ribs demonstrate no fractures or bone lesions. Calcification in the left breast. IMPRESSION: No displaced rib fractures identified. Blunting of the bilateral CP angles may reflect tiny bilateral pleural effusions. Dictated by Avelina Streeter MD @ 05/31/2025 6:13:41 PM (Electronically Signed)
[2025-05-31] MEDS: LIDOCAINE 5% PATCH 1 PATCH TRANSDERMA (18:01)
== END 2025-05-31 18:27 | disposition home or self-care (01) ==
PROVIDERS: Emergency Provider Family Medicine; PCP Family Medicine
DX: M54.6 Pain in thoracic spine (principal)
CPT/HCPCS: 71101; 80048; 85025; 85379; 99283; 99284; A9270

== ENCOUNTER 2025-06-05 11:42 | Emergency (ER) | payer MEDICARE, BC, SELFPAY ==
--- OUTSIDE RECORDS SUMMARY | 2025-06-05 11:44 | XMS_ITS | Clinical Summary ---
Author Organization [employer] [facility] Address [address] [place] [address] Care Team Providers Care Candy Separator Hard Name Role Phone Guero Amador Melissa Jean MD Primary Care Provider Allergies Active Allergy Reactions Criticality Noted Date Comments Levofloxacin Erythema facial erythema/itching [place] Flavor Unlisted Allergen (Include Detail In Comments) [...] FLARE UPS. 15 g 07/02/20 23 Active triamcinolone 0.1 % lotionIndication s:Rash Apply [...] Reaction. 2 Each 1 04/24/20 25 Active valACYclovir (VALTREX) 1 gram tabletIndication s:Cold sore TAKE 2 TABLETS BY MOUTH TWICE DAILY FOR 1 DAY 14 Tablet 2 06/01/20 25 Active hydrOXYzine HCL (ATARAX) 25 mg tabletIndication s:Hand dermatitis Take 1 Tablet (25 mg) by mouth at bedtime if needed for Itching. 90 Tablet 3 06/01/20 25 Active buPROPion (WELLBUTRIN XL) 150 mg Extended-Release tabletIndication s:Anxiety Take 1 Tablet (150 mg) by mouth once daily in the morning. 90 Tablet 3 06/01/20 25 Active HYDROcodone-acet aminophen (5-325 mg/tablet)Indica tions:Chest pain on breathing Take 1 Tablet by mouth every 4 hours if needed for Pain. Max acetaminophen dose: 4000 mg in 24 hrs. 5 Tablet 06/01/20 25 Active lidocaine 5 % topical patchIndications :Chest pain on breathing,Rib injury Apply on dry, clean, hairless skin. Apply 1 patch to painful area of skin for up to to 12 hours within 24 hour period. 30 Patch 11 06/01/20 25 Active buPROPion (WELLBUTRIN XL) 150 mg Extended-Release tabletIndication s:Anxiety Take 1 Tablet (150 mg) by mouth once daily in the morning. 90 Tablet 2 09/19/20 24 025 Discontin ued(Reord er (E-cancel not sent)) valACYclovir (VALTREX) 1 gram tabletIndication s:Cold sore TAKE 2 TABLETS BY MOUTH TWICE DAILY FOR 1 DAY 14 Tablet 2 09/22/20 24 025 Discontin ued(Reord er (E-cancel not sent)) hydrOXYzine HCL (ATARAX) 25 mg tabletIndication s:Hand dermatitis Take 1 Tablet (25 mg) by mouth at bedtime if needed for Itching. 90 Tablet 3 04/24/20 25 025 Discontin ued(Reord er (E-cancel not sent)) atovaquone-progu daisy (250-100 mg) (MALARONE) 250-100 mg tabletIndication s:Pharmacologic therapy Take 1 Tablet by mouth once daily. Begin 1-2 days before and continue until 1 week after exposure for prevention of malaria. 18 Tablet 04/24/20 25 025 Discontin ued(*Med complete/ Regimen complete/ Level of care change) acetaZOLAMIDE (DIAMOX) 125 mg tabletIndication s:Counseling for travel Take 125-250 mg by mouth two times daily. Begin 1 day before through 2 days after arriving at highest altitude. 4 Tablet 04/24/20 25 025 Discontin ued(*Med complete/ Regimen complete/ Level of care change) Active Problems Problem Noted Date Diagnosed Date Anxiety 06/01/2025 Malignant neoplasm of female breast 04/05/2024 Cold [...] Routine general medical exam ination at a health care facility 11/23/2007 Overview (05/16/2008): colonoscopy 05/16/2008 Recheck 10 yrs. Encounters Date Type Department Care Team Description 06/02/2025 Nurse Triage [address] [address] Danielle Taylor MD Back Pain 06/02/2025 Telephone [facility] [address] [place] [address] Danielle Taylor MD Need Meds (HYDROcodone-acetamin ophen/) 06/02/[address] [address] Danielle Taylor MD Prior Authorization (lidocaine 5 % topical patch) 06/01/2025 1:00 PM CDT Ancillary Procedure [address] [address] Arrived 06/01/2025 10:50 AM CDT Office Visit [address] [address] Danielle Taylor MD Medicare ANNUAL (subsequent) Visit (75 year old); ER Follow up ([facility], 05/31/2025, Rib pain) 06/01/[address] [address] Danielle Taylor MD Medication Management 06/01/2025 Travel 05/31/2025 Orders Only [facility] Scanner 1 scan: (1-Ord) [facility], XR RIB LT MIN 3V W CXR1V, 05/31/2025 05/31/2025 Nurse Triage [address] [address] Danielle Taylor MD Back Pain 05/01/2025 Telephone [facility] [address] [place] [address] Shaqra, Ana Catarina, DO Questions 04/30/2025 Refill [facility] [address] [place] [address] Shaqra, Ana Catarina, DO Refill Request (Acetazolamide) 04/29/2025 Refill [facility] [address] [place] [address] Shaqra, Ana Catarina, DO Refill Request (Acetazolamide) 04/29/2025 Refill [facility] [address] [place] [address] Shaqra, Ana Catarina, DO Refill Request (Acetazolamide) 04/28/[address] [address] Shaqra, Ana Catarina, DO Refill Request (Acetazolamide) 04/27/2025 Refill [facility] [address] [place] [address] Shaqra, Ana Catarina, DO Refill Request (Acetazolamide) 04/26/2025 Refill [facility] [address] [place] [address] Shaqra, Ana Catarina, DO Refill Request (Acetazolamide) 04/25/[address] [address] Shaqra, Ana Catarina, DO Refill Request (Acetazolamide) 04/24/2025 10:35 AM CDT Office Visit [address] [address] Shaqra, Ana Catarina, DO Travel ([place], [place] 05/16/25 to 05/29/25, [place] , [place] [facility] 04/24/2025 Travel from Last 3 Months Immunizations Immunization Administration Dates Next Due COVID-19 VACCINE SPIKEVAX (M ODERNA 50MCG/0.5ML) 12YO+ PFS 02/11/2024 COVID-19 vaccine (Verona [employer]arma[employer] NTech 30mcg/0.3mL) 12YO+ BIVALENT PF, MDV 07/25/2022 COVID-19 vaccine (Pfizer-Bio NTech 30mcg/0.3mL) PF, MDV 09/05/2021 Hepatitis A (Adult) 05/18/2015,11/13/2014 Hepatitis B (Adult) 02/11/2024,01/14/2023,2021 Influenza Virus, Unspecified 08/23/2018 Influenza, High-dose Inactivated 09/21/2024,08/05 Influenza, High-dose Quadriv alent Inactivated 07/24/2023 Influenza, IIV3 (Age >=3 years) 07/29/2013,07/16,07/05/2011 Influenza, IIV4 07/24/2014 Influenza, Inactivated AIIV4 (Age 65+ Years) Preserv Free 07/25/2022,12/06/2021,06/14/2020 Influenza, Inactivated IIV3 (Age 65+ Years) Preserv Free 07/14/2019,06/02/2017 [place] Encephalitis 12/11/2014,11/13/2014 Pneumococcal Poly,23-Valent (Pneumovax) 06/14/20,11/13/2014 Pneumococcal conj 13-Valent (Prevnar 13) 018 RSV, [...] Simpson Sister 1 Zonia Alive Sister 2 Damaris Simpson Alive pt's twin Sister 3 Charito Alive Sister 4 Lizz Sister 5 Rebecca Alive Social History Tobacco Use Types Packs/Day Years Used Date Smoking Tobacco: Never Smokeless Tobacco: Never Tobacco Cessation:Counseling Given: Yes Alcohol Use Standard Drinks/Week Comments Not Currently 0 (1 standard drink = 0.6 oz pur e alcohol) rare PHQ-2 Answer Date Recorded PHQ-2 TOTAL SCORE 0 06/01/2025 Social Connections Answer Date Recorded Do you [...] on file Legal 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 Gender Identity Not on file Sexual Orientation Not on file Occupation Industry Job Start Date Job End Date TEACHER Not on file Not on file Not on file Travel History Travel Start Travel End [place] 05/16/2025 05/30/2025 Obstetrics History Para Term AB IAB SAB Ectopic Multiple Livin g Live Births 6 5 1 1 5 Date Outcome GA Total Labor Labor/2nd/3rd Weight Sex Type Anes PTL Catarina A1 A5 Name Clin SAB Para Para Para Para Para Last Filed Vital Signs Vital Sign Reading Time Taken Comments Blood Pressure 127/78 06/01/2025 11:03 AM CDT Pulse 95 06/01/2025 11:03 AM CDT Temperature 36.6 C (97.8 F) 06/25/2023 11:19 AM CDT Respiratory Rate 16 06/25/2023 11:19 AM CDT Oxygen Saturation 95% 06/01/2025 11:03 AM CDT Inhaled Oxygen Concentration - - Weight 68.3 kg (150 lb 9.6 oz) 06/01/2025 11:03 AM CDT Height 156.8 cm (5' 1.73) 06/01/2025 11:03 AM C DT Body Mass Index 27.78 06/01/2025 11:03 AM CDT Plan of Treatment Upcoming Encounters Date Type Department Care Team (Late st Contact Info) Description 06/13/2025 1:45 PM CDT Appointment [facility] [address] [place] [address] Health Maintenance Due Date Last Done Comments COVID-19 vaccine series ( season) 2024 02/11/2024, 08/20/2023, 07/25/2022, Additional history exists Influenza Vaccine (#1) 2025 , 07/25/2022, 12/06/2021, Additional history exists Colonoscopy through age 75 08/13/202508/13, 08/13/2022, 08/13/2022, Additional history exists BMI (ht and wt on same day) for age 18+ 06/01/2026 06/01/2025, 09/17/2023, 06/25/2023, Additional history exists Depression screening for age 12+ 06/01/2026 06/01/2025, 06/01/2025, 09/17/2023, Additional history exists Medicare Wellness for age 65+ 06/02/2026, 09/17/2023, 03/25/2022, Additional history exists Lipids for age 45-75 [...] 01/14/2023, 12/06/2021 Medical Devices Implanted Type Area Bicycle Repair Technician Device Identifier Shelf Expiration Date Model / Serial / Lot Port X Port Mri 6fr Venous Cath Kit [id number] - [id number] Implanted:Qty: 1 on 07/04/2008 at [facility] [employer] [id number] / / [id number] Procedures Procedure Name Priority Date/Time Associated Diagnosis Comments CT CHEST PE STUDY STAT 06/01/2025 1:0 0 PM CDT Chest pain on breathing CBC WITH AUTO DIFFERENTIAL Routine 06/01/2025 12:16 PM CDT Stage 3a chronic kidney disease (HC) VITAMIN B12 Routine 06/01/2025 12:16 PM CDT Stage 3a chronic kidney disease (HC) MAGNESIUM Routine 06/01/2025 12:16 PM CDT Stage 3a chronic kidney disease (HC) CREATININE,ISTAT Routine 06/01/2025 12:1 6 PM CDT Chest pain on breathing CBC WITH AUTO DIFFERENTIAL Routine 06/01/2025 12:16 PM CDT Stage 3a chronic kidney disease (HC) COMP METABOLIC PANEL Routine 06/01/2025 12:16 PM CDT Stage 3a chronic kidney disease (HC) SCAN-RADIOLOGY REPORT 05/31/2025 12:00 AM CDT LIPID PANEL W REFLEX MEASURED LDL Routine 09/17/2023 10:54 AM RETORT FURNACE OPERATOR Lipid screening ANTI HCV Routine 06/12/2023 4:06 PM CDT Need for hepatitis C screening test COLONOSCOPY SCREENING Routine 08/13/2022 7:30 AM RETORT FURNACE OPERATOR History of colon polyps XR DXA BONE DENSITY 2 SITES AXIAL Routine 07/19/2019 2:49 PM CDT Menopause from Last 3 Months or Most Recently Relevant to Health Maintenance Results * CT CHEST PE STUDY (06/01/2025 1:00 PM CDT) Anatomical Region Laterality Modality CHEST, THORAX, HEART Computed To mography 06/01/2025 1:08 PM CDT Impressions 06/01/2025 1:08 PM CDT No pulmonary embolism. No acute findings in the chest. Please note that all CT scans at this facility use dose modulation, iterative reconstruction, and/or weight-based dosing when appropriate to reduce radiation dose to as low as reasonably achievable. Dictated by Jaquan Don MD @ 06/01/2025 1:08:56 PM (Electronically Signed) Narrative 06/01/2025 1:08 PM CDT For Patients: As a result of the Century Cures Act, medical imaging exams and procedure reports are released immediately into your electronic medical record. You may view this report before your referring provider. If you have questions, please contact your health care provider. INDICATION: Chest pain breathing. TECHNIQUE: CT chest PE was acquired with 100 cc Omnipaque 350 IV contrast. COMPARISON: None. FINDINGS: Heart and vasculature: Contrast opacification of the pulmonary arterial tree is adequate. No sign of pulmonary embolism. Heart size is normal. Thoracic aorta and pulmonary artery are normal in caliber. Lungs and pleura: Mild bibasilar atelectasis versus scarring. No acute consolidation, suspicious nodule, pleural effusion, or pneumothorax. Lymph nodes/mediastinum: No mediastinal, hilar, or axillary adenopathy. Chest wall: No masses. Upper abdomen: No acute or significant findings. Bones: Chronic-appearing mild T6 and moderate T12 compression fractures. Procedure Note Jaquan Don MD - 06/01/2025 For Patients: As a result of the Cures Act, medical imagingexams and procedure reports are released immediately into your electronicmedical record. You may view this report before your referring provider.If you have questions, please contact your health care provider. INDICATION: Chest pain breathing. TECHNIQUE: CT chest PE was acquired with 100 cc Omnipaque 350 IV contrast. COMPARISON: None. FINDINGS: Heart and vasculature: Contrast opacification of the pulmonary arterialtree is adequate. No sign of pulmonary embolism. Heart size is normal.Thoracic aorta and pulmonary artery are normal in caliber. Lungs and pleura: Mild bibasilar atelectasis versus scarring. No acuteconsolidation, suspicious nodule, pleural effusion, or pneumothorax. Lymph nodes/mediastinum: No mediastinal, hilar, or axillary adenopathy. Chest wall: No masses. Upper abdomen: No acute or significant findings. Bones: Chronic-appearing mild T6 and moderate T12 compression fractures. IMPRESSION: No pulmonary embolism. No acute findings in the chest. Please note that all CT scans at this facility use dose modulation,iterative reconstruction, and/or weight-based dosing when appropriate toreduce radiation dose to as low as reasonably achievable. Dictated by Jaquan Don MD @ 06/01/2025 1:08:56 PM (Electronically Signed) us Danielle Taylor MD CT Final Resul t * CBC WITH AUTO DIFFERENTIAL (06/01/2025 12:16 PM CDT) WHITE BLOOD CELL COUNT 6.5 3.8 - 10.8 Thousand/u L 06/02/2025 2:33 AM CDT [facility] RED BLOOD CELL COUNT 4.29 3.80 - 5.10 Million/uL 06/02/2025 2:33 AM CDT [facility] HEMOGLOBIN 13.5 11.7 - 15.5 g/dL 06/02/2025 2:33 AM CDT [facility] HEMATOCRIT 40.9 35.0 - 45.0 % 06/02/2025 2:33 AM CDT [facility] MCV 95.3 80.0 - 100.0 fL 06/02/2025 2:33 AM CDT [facility] MCH 31.5 27.0 - 33.0 pg 06/02/2025 2:33 AM CDT [facility] MCHC 33.0 32.0 - 36.0 g/dL 06/02/2025 2:33 AM CDT [facility] Comment: For adults, a slight decrease in the calculated MCHC value (in the range of 30 to 32 g/dL) is most likely not clinically significant; however, it should be interpreted with caution in correlation with other red cell parameters and the patient's clinical condition. RDW 12.6 11.0 - 15.0 % 06/02/2025 2:33 AM CDT [facility] PLATELET COUNT 316 140 - 400 Thousand/u L 06/02/2025 2:33 AM CDT [facility] MPV 10.1 7.5 - 12.5 fL 06/02/2025 2:33 AM CDT [facility] NEUTROPHILS 64.9 % 06/02/2025 2:33 AM CDT [facility] LYMPHOCYTES 22.9 % 06/02/2025 2:33 AM CDT [facility] MONOCYTES 8.8 % 06/02/2025 2:33 AM CDT [facility] EOSINOPHILS 2.5 % 06/02/2025 2:33 AM CDT [facility] BASOPHILS 0.9 % 06/02/2025 2:33 AM CDT [facility] ABSOLUTE NEUTROPHILS 4219 1500 - 7800 cells/uL 06/02/2025 2:33 AM CDT [facility] ABSOLUTE LYMPHOCYTES 1489 850 - 3900 cells/uL 06/02/2025 2:33 AM CDT [facility] ABSOLUTE MONOCYTES 572 200 - 950 cells/uL 06/02/2025 2:33 AM CDT [facility] ABSOLUTE EOSINOPHILS 163 15 - 500 cells/uL 06/02/2025 2:33 AM CDT [facility] ABSOLUTE BASOPHILS 59 0 - 200 cells/uL 06/02/2025 2:33 AM CDT [facility] Blood BLOOD SPECIMEN / Unknown [facility] / Unknown 06/01/2025 12:16 PM CDT 06/01/2025 12:16 PM CDT Danielle Taylor MD HEMATOLOGY Final Resul t Performing Organization Address City/[facility]/ZIP Co de Phone Number [facility] [address] [address], [place] [phone] * CREATININE,ISTAT (06/01/2025 12:16 PM CDT) POCT,CREATININ E, ISTAT 1.0 0.6 - 1.3 mg/dL 06/01/2025 12:28 PM CDT [facility] Blood BLOOD SPECIMEN / Unknown [facility] / Unknown 06/01/2025 12:16 PM CDT 06/01/2025 12:16 PM CDT Danielle Taylor MD CHEMISTRY Final Resul t Performing Organization Address [facility]/ZIP Co de Phone Number [facility] [address] [address], [place] [phone] [address], [place] [phone] * MAGNESIUM (06/01/2025 12:16 PM CDT) MAGNESIUM 2.3 1.5 - 2.5 mg/dL 06/02/2025 4:05 AM CDT [facility] Blood BLOOD SPECIMEN / Unknown [facility] / Unknown 06/01/2025 12:16 PM CDT 06/01/2025 12:16 PM CDT Danielle Taylor MD CHEMISTRY Final Resul t Performing Organization Address City/[facility]/ZIP Co de Phone Number [facility] [address] [address], [place] [phone] * VITAMIN B12 (06/01/2025 12:16 PM CDT) VITAMIN B12 552 200 - 1100 pg/mL 06/02/2025 3:44 AM CDT [facility] Blood BLOOD SPECIMEN / Unknown [facility] / Unknown 06/01/2025 12:16 PM CDT 06/01/2025 12:16 PM CDT us Danielle Taylor MD CHEMISTRY Final Resul t [facility] [address] [place] [address], * (ABNORMAL) COMP METABOLIC PANEL (06/01/2025 12:16 PM CDT) SODIUM 134(L) 135 - 146 mmol/L 06/02/2025 4:05 AM CDT [facility] POTASSIUM 4.8 3.5 - 5.3 mmol/L 06/02/2025 4:05 AM CDT [facility] CHLORIDE 97(L) 98 - 110 mmol/L 06/02/2025 4:05 AM CDT [facility] CARBON DIOXIDE 28 20 - 32 mmol/L 06/02/2025 4:05 AM CDT [facility] GLUCOSE 100(H) 65 - 99 mg/dL 06/02/2025 4:05 AM CDT [facility] Comment: Fasting reference interval For someone without known diabetes, a glucose value between 100 and 125 mg/dL is consistent with prediabetes and should be confirmed with a follow-up test. CALCIUM 9.8 8.6 - 10.4 mg/dL 06/02/2025 4:05 AM CDT [facility] CREATININE 0.99 0.60 - 1.00 mg/dL 06/02/2025 4:05 AM CDT [facility] BUN/CREATININE RATIO SEE NOTE: 6 - 22 (calc) 06/02/2025 4:05 AM CDT [facility] Comment: Not Reported: BUN and Creatinine are within reference range. EGFR 59(L) > OR = 60 mL/min/1. 73m2 06/02/2025 4:05 AM CDT [facility] ALBUMIN 4.5 3.6 - 5.1 g/dL 06/02/2025 4:05 AM CDT [facility] PROTEIN, TOTAL 7.8 6.1 - 8.1 g/dL 06/02/2025 4:05 AM CDT [facility] BILIRUBIN, TOTAL 0.6 0.2 - 1.2 mg/dL 06/02/2025 4:05 AM CDT [facility] ALKALINE PHOSPHATASE 103 37 - 153 U/L 06/02/2025 4:05 AM CDT [facility] ALT 17 6 - 29 U/L 06/02/2025 4:05 AM CDT [facility] AST 21 10 - 35 U/L 06/02/2025 4:05 AM CDT [facility] UREA NITROGEN (BUN) 15 7 - 25 mg/dL 06/02/2025 4:05 AM CDT [facility] GLOBULIN 3.3 1.9 - 3.7 g/dL (calc) 06/02/2025 4:05 AM CDT [facility] ALBUMIN/GLOBULI N RATIO 1.4 1.0 - 2.5 (calc) 06/02/2025 4:05 AM CDT [facility] Blood BLOOD SPECIMEN / Unknown [facility] / Unknown 06/01/2025 12:16 PM CDT 06/01/2025 12:16 PM CDT us Danielle Taylor MD CHEMISTRY Final Resul t [facility] [place] [address] [address], [place] [phone] * SCAN-RADIOLOGY REPORT (05/31/2025 12:00 AM CDT) Anatomical Region Laterality Modality Other us Scanner OTHER Final Result * LIPID PANEL W REFLEX MEASURED LDL (09/17/2023 10:54 AM RETORT FURNACE OPERATOR) CHOLESTEROL,TOTAL 174 100 - 199 mg/dL 09/17/2023 6:19 PM RETORT FURNACE OPERATOR [facility] Comment: Cholesterol, Total Reference Ranges Desirable <200 mg/dL Borderline 200-239 mg/dL High >=240 mg/dL TRIGLYCERIDES 48 <150 mg/dL 09/17/2023 6:19 PM RETORT FURNACE OPERATOR [facility] HDL CHOLESTEROL 85 >40 mg/dL 6:19 PM RETORT FURNACE OPERATOR [facility] NON-HDL CHOLESTEROL 89 <145 mg/dl 09/17/2023 6:19 PM RETORT FURNACE OPERATOR [facility] CHOL/HDL RATIO 2.05 <4.50 09/17/2023 6:19 PM RETORT FURNACE OPERATOR [facility] LDL CHOLESTEROL 79 <=130 mg/dL 09/17/2023 6:19 PM RETORT FURNACE OPERATOR [facility] VLDL CHOLESTEROL 10 <=30 mg/dL 09/17/2023 6:19 PM RETORT FURNACE OPERATOR [facility] PROVIDER ORDERED STATUS RANDOM 09/17/2023 6:19 PM RETORT FURNACE OPERATOR [facility] Blood BLOOD SPECIMEN / Unknown Venipuncture / Unknown 09/17/2023 10:54 AM RETORT FURNACE OPERATOR 09/17/2023 10:56 AM RETORT FURNACE OPERATOR us Danielle Taylor MD CHEMISTRY Final Resul t [facility] [address] [place] [address], * ANTI HCV (06/12/2023 4:06 PM CDT) HEPATITIS C ANTIBODY Non-Reacti ve Non-React darci 06/15/2023 11:33 PM CDT [facility] Comment:Please note, per www .CDC.gov: [...] Galvez MD SEND OUTS Final Res ult [facility] SENDOUT INTERNAL ZIP [address] [place] [address] * COLONOSCOPY (08/13/2022 7:50 AM RETORT FURNACE OPERATOR) 08/13/2022 7:50 AM RETORT FURNACE OPERATOR Narrative Transcriptions Tonny Wolfe MD - 08/13/2022 8:36 AM CST Patient Name: Heather Patton Procedure Date: 08/13/2022 Gender: Female Date of : 1950 Admit Type: Outpatient Procedure: Colonoscopy Proceduralist: Tonny Wolfe MD , Angelita García, RN(Nurse), Jennifer Galvez (Nurse) Referring MD: Danielle [...] candidate for conscious sedation. The endoscope [id number] was passed through the anus andadvanced to [...] 7:50 AM Procedure Code(s): --- Professional --- 51641, Colonoscopy, flexible; with removalof tumor(s), polyp(s), or other lesion(s) bysnare technique Diagnosis Code(s): --- Professional --- Z86.010, Personal history of colonicpolyps D12.3, Benign neoplasm of transverse colon (hepatic flexure or splenic flexure) D12.5, Benign neoplasm of sigmoid colon K57.30, Diverticulosis of large intestine without perforation or abscess withoutbleeding CPT copyright 2020 [employer]. All rights reserved. The codes documented in this report are preliminary and upon textile finisher reviewmay be revised to meet current compliance requirements. Scope In: 8:09:22 AM Scope Withdrawal Time 0 hours 15 minutes 5 seconds Scope Out: 8:30:54 AM us Tonny Wolfe MD PROCEDURE ORD Final Res ult * (ABNORMAL) XR DXA BONE DENSITY 2 SITES AXIAL [71303.1] (07/19/2019 2:49 PM CDT) Anatomical Region Laterality [...] ONLY [employer] [place] [employer] Care Teams Candy Separator Hard Relationship Specialty Start Date End Date Danielle Taylor MD [address] [place] [address] PCP - General Family Practice 04/27/17 [facility] Am[facility] Oncology Hematology and Oncology 08/30/12
[2025-06-05 12:09] VITALS: BP 151/91; PULSE 77; RESP 20; TEMP 36.6; O2SAT 96; BMI 26.4
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
--- NOTE | 2025-06-05 12:29 | CRLHL7_ITS ---
For Patients: As a result of the Century Cures Act, medical imaging exams and procedure reports are released immediately into your electronic medical record. You may view this report before your referring provider. If you have questions, please contact your health care provider. Indication: Back pain Technique: Noncontrast axial CT of the lumbar spine with coronal and sagittal reformats are provided. Comparison: No prior studies are available for comparison at this institution. Findings: Exaggeration of lumbar lordosis as well as exaggeration of kyphosis at the thoracolumbar junction. Grade 1 anterolisthesis at L5-S1. Advanced disc degeneration at L2-3 through L5-S1. Moderate anterior wedging of the T12 vertebral body. Benign bone island in the T11 vertebral body. Fusion of the T11 and T12 vertebral bodies across the anterior endplates. Levoscoliosis with apex at T12. No fractures in the lumbar spine. Multilevel advanced degenerative changes. 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 T12-L1: No significant bony spinal canal stenosis or neural foraminal narrowing. L1-2: No significant bony spinal canal stenosis or neural foraminal narrowing. L2-3: Moderate interspace narrowing. Posterior endplate osteophytic ridging. No significant bony spinal canal stenosis or neural foraminal narrowing. L3-4: Advanced right facet arthrosis and moderate left facet arthrosis. Mild spinal canal stenosis. Disc bulge and endplate osteophytic ridging. Mild right neural foraminal narrowing. No significant left neural foraminal narrowing. L4-5: Advanced right and moderate left facet arthrosis. Disc bulge and endplate osteophytic ridging. Moderate spinal canal stenosis. Moderate right and mild left neural foraminal narrowing. L5-S1: Grade 1 anterolisthesis. Advanced facet arthrosis and facet joint hypertrophy. Diffuse uncovering of the disc. Moderate to severe spinal canal stenosis. Moderate neural foramen narrowing bilaterally. Impression: 1. No acute osseous abnormality. Multilevel advanced degenerative changes in the lumbar spine detailed above. Please note that all CT scans at this facility use dose modulation, iterative reconstruction, and/or weight-based dosing when appropriate to reduce radiation dose to as low as reasonably achievable. Dictated by Alec Guardado MD @ 06/05/2025 2:03:51 PM (Electronically Signed)
--- NOTE | 2025-06-05 12:29 | CRLHL7_ITS ---
For Patients: As a result of the Century Cures Act, medical imaging exams and procedure reports are released immediately into your electronic medical record. You may view this report before your referring provider. If you have questions, please contact your health care provider. Indication: Back pain with thoracic radiculopathy. Technique: Noncontrast axial CT of the thoracic spine with coronal and sagittal reformats are provided. Comparison: No prior studies available for comparison at this institution. Findings: There is straightening of normal thoracic spine alignment. Grade 1 anterolisthesis at T11-12 with exaggeration of kyphosis at the thoracolumbar junction acute T7 oblique fracture. Slight retropulsion of the posterior cortex. 50 percent loss of vertebral body height centrally. Chronic T9 superior endplate compression fracture and L1 compression fracture Anterior osteophytic spurring results in fusion of the T11-L1 vertebral bodies. No aggressive osseous lesions. Incidental bone island in the T12 vertebral body. The visualized lungs are clear. Multilevel low-grade spinal canal stenosis. Gccm-qz-crdvcero spinal canal stenosis at T11-12 due to disc bulge, facet arthrosis and ligamentum flavum ossifications. Severe left neural foraminal narrowing at T10-11 due to advanced facet arthrosis. Moderate left neural foraminal narrowing at T9-10 and severe left neural foraminal narrowing at T7-8. Severe right neural foraminal narrowing at T10-T11 and T11-12 due to facet joint arthrosis. Moderate right neural foraminal narrowing at T6-7 and T7-8, and T5-6 due to facet arthrosis. Impression : 1. Acute T7 compression fracture with slight retropulsion of the posterior inferior corner. 50 percent loss of vertebral height centrally. 2. Kpfs-lz-iavhjjlt spinal canal stenosis at T11-12 due to degenerative changes. Multilevel neural foraminal narrowing detailed above. Please note that all CT scans at this facility use dose modulation, iterative reconstruction, and/or weight-based dosing when appropriate to reduce radiation dose to as low as reasonably achievable. Dictated by Alec Guardado MD @ 06/05/2025 1:57:52 PM (Electronically Signed)
[2025-06-05 12:53] LABS: Hematocrit 41.7 % (33.0-51.0); Hemoglobin* 13.8 gm/dL (12.0-16.0); Immature Granulocytes Pct Auto 0.2 %; Mean Corpuscular HGB Conc 33 gm/dL (32-36); Mean Corpuscular Hemoglobin 32 pg (26-34); Mean Corpuscular Volume 96 fL (80-100); RDW Coefficient of Variation % 13.0 % (11.5-15.5); Red Blood Count 4.34 m/uL (4.00-5.20); White Blood Count* 4.07 K/uL (4.50-11.00)
[2025-06-05 12:58] LABS: Immature Granulocytes Abs Auto 0.00 K/uL (0.00-0.30); Lymphocytes Absolute Auto 1.20 K/uL (0.90-2.90); Slide Review Reflex No
[2025-06-05 13:00] LABS: Chloride* 96 mmol/L (96-114); Potassium* 4.8 mmol/L (3.6-5.1); Sodium* 135 mmol/L (135-149)
[2025-06-05 13:04] LABS: Anion Gap 6 mEq/L (7-15); Blood Urea Nitrogen* 11 mg/dL (7-30); Calcium* 9.7 mg/dL (8.4-10.6); Carbon Dioxide* 33 mmol/L (20-32); Creatinine* 0.8 mg/dL (0.5-1.5); Est. Creatinine Clearance* 40.21; Estimated Glomerular Filt Rate 77 ml/min; Glucose* 95 mg/dL (60-115)
[2025-06-05 13:30] LABS: Appearance Urine Clear (Clear)
[2025-06-05 14:28] VITALS: BP 136/80; PULSE 80; RESP 16; TEMP 36.7; O2SAT 98
== END 2025-06-05 14:57 | disposition short-term general hospital (02) ==
PROVIDERS: Emergency Provider Family Medicine; PCP Family Medicine
DX: S22.050A Wedge compression fracture of T5-T6 vertebra, initial encounter for closed fracture (principal); X50.1XXA Overexertion from prolonged static or awkward postures, initial encounter
CPT/HCPCS: 36415; 72128; 72131; 80048; 81001; 84484; 85025; 86140; 87086; 93005; 99284; 99285; A9270

== ENCOUNTER 2025-08-28 16:49 | Emergency (ER) | payer MEDICARE, BC, SELFPAY ==
[2025-08-28] VITALS (10 sets, daily range): BP systolic 120–175; BP diastolic 72–102; PULSE 90–98; RESP 16–32; TEMP 36.1; O2SAT 85–98; BMI 28.3
--- OUTSIDE RECORDS SUMMARY | 2025-08-28 16:51 | XMS_ITS | Continuity of Care Document ---
Author Organization [facility] Address [address] [place] [address] Assessment Encounter Date Assessment Date Assessment LastModified by Organization Details LastModified Time 08/18/2025 08/18/2025 ASSESSMENT: Patient is a good candidate for conservative care and the prognosis is for a favorable outcome that achieves the patients' goals. We discussed etiology, activity modifications, home care, and other treatment options. Initially, it is recommended that the patient receive in-office treatment 1 times per week for 8 weeks at which time a re-evaluation will be performed to determine an appropriate change in plan. Initially, treatment will focus on joint manipulation to restore range of motion and reduce pain. We will slowly progress to therapeutic exercises and activities to improve function, strength, and stability may also be used as warranted. If the patient is not responding as expected, more invasive procedures will be discussed along with a referral. All considerations above were discussed with the patient and questions answered to satisfaction. If the patient should have any additional questions, or should the condition evolve or worsen, the patient should not hesitate to contact our office. ecram Not available 08/18/2025 14:10:22 Plan of Treatment Reminders Order Date Submit Date Provider Last Modified By Organization Details Last Modified Time Details Appointments None recorded. Lab None recorded. Referral None recorded. Procedures None recorded. Surgeries None recorded. Imaging XR, lumbosacral spine, 2 or 3 view 2024 025 [email or web address] Not available 15:03:30 MRI, lumbar spine, w/o contrast 2024 025 [email or web address] Not available 15:03:30 MRI, lumbar spine, w/o contrast 2024 025 [email or web address] Not available 15:03:30 Medication Orders None recorded. Patient TargetsNo targets recorded. Patient InstructionsNo instructions recorded. Reason for Referral None Reported. Problems Name Problem SNOMED Code Status Onset Date Resolution Date Notes Provider Name and Address Organization Details Recorded Time Lumbar radiculopat hy 961755976 Active 2024 Bashir Gacría Monicajesus alberto, [place] [address], [place], [address], [facility] 14:10:15 Disorder of lumbar spine 909994899 Active 2024 Bashir Lenoard, [place] [address], [place], [address], [facility] 14:10:15 Lumbar segmental dysfunction 013579328 Active 2024 Bashir García Monicajesus alberto, [place] [address], [place], [address], [facility] 14:10:15 Lesion of lumbar spine 091670653 Active 2024 Bashir García Monicajesus alberto, TIMI [address], [place], [address], [facility] 14:10:15 Low back strain 340230182 Active 2024 Bashir García Monicajesus alberto, [place] [address], [place], [address], [facility] 14:10:15 Somatic dysfunction of sacral spine 045720570 Active 2024 Bashir García Monicajesus alberto, [place] [address], [place], [address], [facility] 14:10:15 Spasm of muscle of lower back 5711873107267 9105 Active 2024 Bashir Ricky Monicajesus alberto, [place] [address], [place], [address], [facility] 14:10:15 Neck pain 91201249 Active 2024 Bashir Leonard DC [address], [place], [address], [facility] 14:10:25 Thoracic segmental dysfunction 544538202 Active 2024 Bashir Leonard DC [address], [place], [address], [facility] 14:10:25 Cervical segmental dysfunction 091120596 Active 2024 Bashir Leonard DC [address], [place], [address], [facility] 14:10:25 Problem Notes None recorded. Procedures Surgical History Date Name Laterality Status Provider Name and Address Organization Details Recorded Time 14874: Spinal manipulation , 3 to 4 regions completed Vishnu HernandezTWAIN, [place] [address], [place], [address], [facility] 08/24/2025 19:22:29 78725: Spinal manipulation , 3 to 4 regions completed Bashir Anderson [place] [address], [place], [address], [facility] 08/21/2025 12:49:59 11017: Spinal manipulation , 3 to 4 regions completed Bashir Anderson [place] [address], [place], [address], [facility] 08/18/2025 14:13:26 Imaging Results None recorded. Procedure Notes None recorded. Medical Equipment None Reported. Allergies Allergen ID Allergen Name Allergen Category Reaction Reaction Severity Criticality Documentation Date Start Date Code Code System Note Provider Name and Address Organization Details Recorded Time 39530 levofloxa dimas medicatio n Not available Not available Not available 08/18/20252024 77078 RxNorm unrec ogniz ed react ion (text : Eryth ayaz, code: 35084 1003) (from [facility]) Not Available vinod - External Data Service - prod 12:11:32 Medications Name Sig Start Date Stop Date Status Note LastModified by Organization Details LastModified Time acetazolamid e 125 mg tablet TAKE 1 TO 2 TABLETS BY MOUTH TWICE DAILY. BEGIN 1 DAY BEFORE THROUGH 2 DAYS AFTER ARRIVING AT HIGHEST ALTITUDE active Not Available Not Available No t Available valacyclovir 1 gram tablet TAKE 2 TABLETS BY MOUTH TWICE DAILY FOR 1 DAY active Not Available Not Available No t Available hydrocodone 5 mg-acetamino phen 325 mg tablet TAKE 1 TABLET BY MOUTH EVERY 4 HOURS IS NEEDED FOR MAIN active Not Available Not Available No t Available atovaquone 250 mg-proguanil 100 mg tablet TAKE 1 TABLET BY MOUTH DAILY. BEGIN 1-2 DAYS BEFORE AND. CONTINUE UNTIL 1 WEEK AFTER EXPOSURE FOR PREVENTION OF MALARIA active Not Available Not Available N ot Available triamcinolon e acetonide 0.1 % topical ointment APPLY TOPICALLY TO THE AFFECTED AREA THREE TIMES DAILY active Not Available Not Available Not Available clobetasol 0.05 % topical ointment APPLY TOPICALLY TO THE AFFECTED AREA TWICE DAILY FOR 2 WEEKS active Not Available Not Available No t Available epinephrine 0.3 mg/0.3 mL injection, auto-injecto r INJECT 1 PEN IN THE MUSCLE ONE TIME NEEDED FOR ALLERGIC REACTION active Not Available Not Available No t Available triamcinolon e acetonide 0.1 % lotion APPLY TOPICALLY TO THE AFFECTED AREA THREE TIMES DAILY active Not Available Not Available Not Available albuterol sulfate HFA 90 mcg/actuatio n aerosol inhaler INHALE 2 PUFFS BY MOUTH EVERY 4 HOURS NEEDED FOR SHORTNESS OF BREATH active Not Available Not Available No t Available Vitals None Recorded Social History None recorded. Functional Status None recorded. Mental Status None recorded. Family History Nothing Reported. Medical History No medical history recorded. Gynecological HistoryNo gynecological history recorded. Obstetrics History GPAL:G 0 P 0 0 0 0 Past Encounters Encounter ID Performer Location Encounter Start Date Encounter Closed Date Diagnosis/Indication Diagnosis SNOMED-CT Code Diagnosis ICD10 Code Diagnosis IMO Codes Diagnosis Note [id number] Bashir Leonard DC [facility] [address] [facility] [place] [address] 08/18/2025 12:09:29 08/18/2025 15:03:30 Lumbar radiculopathy 963756052 M54.16 Spasm of m uscle of lower back 5747450088 7850856 M62.830 Lumbar seg mental dysfunction 071853968 M99.03 Somatic dy sfunction of sacral spine 713128718 M99.04 Disorder o f lumbar spine 528699935 M53.9 Lesion of lumbar spine 771162481 M99.9 Low back strain 58393555 1 S39.012A S39.012D Cervical s egmental dysfunction 782672573 M99.01 Neck pain 00710915 M54.2 Thoracic s egmental dysfunction 729869698 M99.02 Health Concerns Section Related Observation LastModified by Organization Detai ls LastModified Time None Recorded Concern Status LastModified by Organization Details LastModified Time None Recorded Payers Encounter Date Sequence Insurance Name Policy Number Policy Islas Covered Member ID Islas Member ID Guarantor Name 08/18/2025 1 MEDICARE [employer]: [employer] Heather Patton [id number] 1 Heather Patton 08/18/2025 2 [place] [id number] Heather Patton [id number] Heather Jocelynnjohn Notes Date Note Type Note Provider Name and Address Organization Details Recorded Time 08/18/2025 text/html HPI - Cervical SpineReported by PatientHPIFor location, patient reportsbilateral. For quality, patient reportsaching. For severity, patient reportsmoderate. For duration, patient reports2 weeks. For timing, patient reportsgradual. For alleviating factors, patient reportsice. For aggravating factors, patient reportsbendingandtwi sting/turning. For associated symptoms, patient reportsno numbness/tingling. HPI - Lumbar SpineReported by PatientHPIFor quality, patient reportsaching. For severity, patient reportsmoderate. For timing, patient reportscannot identify. For duration, patient reportsacute. For context, patient reportsbending,lifti ng, andtwisting. For aggravating factors, patient reportslifting,carry ing,twisting,bending /squatting,pushing/p ulling,exercise, andgoing from sit to stand. For alleviating factors, patient reportsrest. Bashir Leonard DC [address], [place], [address], [facility] [place] [facility] 08/18/2025 14:15:38 OBGyn Episode No OBEpisode recorded.
--- OUTSIDE RECORDS SUMMARY | 2025-08-28 16:52 | XMS_ITS | Continuity of Care Document ---
Author Organization [facility] Address [address] [place] [address] Assessment Encounter Date Assessment Date Assessment LastModified by Organization Details LastModified Time 08/21/2025 08/21/2025 ASSESSMENT: Patient is a good candidate for [...] to contact our office. ecram Not available 08/21/2025 12:49:59 Plan of Treatment Reminders Order Date Submit Date Provider Last Modified By Organization Details Last Modified Time Details Appointments None recorded. Lab None recorded. Referral None recorded. Procedures None recorded. Surgeries None recorded. Imaging XR, lumbosacr al spine, 2 or 3 view 2024 025 [email or web address] Not available 15:41:20 MRI, lumbar spine, w/o contrast 2024 025 [email or web address] Not available 15:41:20 MRI, lumbar spine, w/o contrast 2024 025 [email or web address] Not available 15:41:20 Medication Orders None recorded. Patient TargetsNo targets recorded. Patient InstructionsNo instructions recorded. Reason for Referral None Reported. Problems Name Problem SNOMED Code Status Onset Date Resolution Date Notes Provider Name and Address Organization Details Recorded Time Lumbar radiculopat hy 171567914 Active 2024 Bashir Andersonjesus alberto, [place] [address], [place], [address], [facility] 14:10:15 Disorder of lumbar spine 390817569 Active 2024 Bashir García Monicajesus alberto, [place] [address], [place], [address], [facility] 14:10:15 Lumbar segmental dysfunction 476157394 Active 2024 Bashir Leonard, [place] [address], [place], [address], [facility] 14:10:15 Lesion of lumbar spine 750546593 Active 2024 Bashir Andersonjesus alberto, [place] [address], [place], [address], [facility] 14:10:15 Low back strain 431248584 Active 2024 Bashir Andersonjesus alberto, [place] [address], [place], [address], [facility] 14:10:15 Somatic dysfunction of sacral spine 009081767 Active 2024 Bashir Ricky Monicajesus alberto, [place] [address], [place], [address], [facility] 14:10:15 Spasm of muscle of lower back 8168860851771 9105 Active 2024 Bashir Andersonm, [place] [address], [place], [address], [facility] 14:10:15 Neck pain 44727936 Active 2024 Bashir Leonard DC [address], [place], [address], [facility] 14:10:25 Thoracic segmental dysfunction 963441690 Active 2024 Bashir Leonard DC [address], [place], [address], [facility] 14:10:25 Cervical segmental dysfunction 252406519 Active 2024 Bashir Leonard DC [address], [place], [address], [facility] 14:10:25 Problem Notes None recorded. Procedures Surgical History Date Name Laterality Status Provider Name and Address Organization Details Recorded Time 26712: Spinal manipulation , 3 to 4 regions completed Vishnu Hernandez, [place] [address], [place], [address], [facility] 08/24/2025 19:22:29 55783: Spinal manipulation , 3 to 4 regions completed Bashir Leonard, [place] [address], [place], [address], [facility] 08/21/2025 12:49:59 07908: Spinal manipulation , 3 to 4 regions completed Bashir Leonard, [place] [address], [place], [address], [facility] 08/18/2025 14:13:26 Imaging Results None recorded. Procedure Notes None recorded. Medical Equipment None Reported. Allergies Allergen ID Allergen Name Allergen Category Reaction Reaction Severity Criticality Documentation Date Start Date Code Code System Note Provider Name and Address Organization Details Recorded Time 84737 levofloxa dimas medicatio n Not available Not available Not available 08/18/20252024 89461 RxNorm unrec ogniz ed react ion (text : Eryth ayaz, code: 91632 1003) (from [facility]ter nal [facility] e) Not Available vinod - External Data [...] ICD10 Code Diagnosis IMO Codes Diagnosis Note [id number] Bashir Leonard DC [facility] [address] [facility] [place] [address] 08/18/2025 12:09:29 08/18/2025 15:03:30 Lumbar radiculopathy 420493622 M54.16 Spasm of m uscle of lower back 3188018832 2040851 M62.830 Lumbar seg mental dysfunction 146785350 M99.03 Somatic dy sfunction of sacral spine 641792740 M99.04 Disorder o f lumbar spine 483411675 M53.9 Lesion of lumbar spine 950622056 M99.9 Low back strain 08827933 1 S39.012A S39.012D Cervical s egmental dysfunction 349560960 M99.01 Neck pain 50648910 M54.2 Thoracic s egmental dysfunction 164365028 M99.[id number] [place] [facility] [address] [place] [address] 08/21/2025 09:37:20 08/21/2025 15:41:20 Lumbar radiculopathy 076167326 M54.16 Spasm of m uscle of lower back 1351292145 4611934 M62.830 Lumbar seg mental dysfunction 449488285 M99.03 Somatic dy sfunction of sacral spine 012652471 M99.04 Disorder o f lumbar spine 400379674 M53.9 Lesion of lumbar spine 591048818 M99.9 Low back strain 01196105 1 S39.012A S39.012D Cervical s egmental dysfunction 429209851 M99.01 Neck pain 47758783 M54.2 Thoracic s egmental dysfunction 638898683 M99.02 Health Concerns Section Related Observation LastModified by Organization Detai ls LastModified Time None Recorded Concern Status LastModified by Organization Details LastModified Time None Recorded Payers Encounter Date Sequence Insurance Name Policy Number Policy Islas Covered Member ID Islas Member ID Guarantor Name 08/21/2025 1 [place] [employer] Heather Patton [id number] 1 Heather Jocelynnjohn 08/21/2025 2 [facility] [id number] Heather Cochran Pooja [id number] Heather Patton Notes Date Note Type Note Provider Name and Address Organization Details Recorded Time 08/21/2025 text/html HPI - Cervical SpineReported by PatientHPIFor [...] factors, patient reportsrest. Bashir Leonard DC [address], [place], [address], [facility] 08/21/2025 12:52:01 OBGyn Episode No OBEpisode recorded.
--- OUTSIDE RECORDS SUMMARY | 2025-08-28 16:52 | XMS_ITS | Continuity of Care Document ---
Author Organization [facility] Address [address] [place] [address] Insurance Providers Payer Plan Claims Address Claims Phone Policy Number Group Number Relation Employer Guarantor Name Guarantor Guarantor Address Guarantor Phone [employer] [place] 220G [id number] Self Heather Patton 1950 [place] Medic are [id number] Self Heather Patton 1950 [place] [employer] D [address] [address], [place] [address] [id number] Self Heather Patton 1950 [place] Problems Condition ICD9 code ICD10 code SNOMED code Start Date End Date S tatus Pain, unspecified R52 06/15/2025 Act darci Anxiety disorder, unspecified F41.9 06/15/2025 Active Other allergic rhinitis J30.89 06/15/2025 Active Encounter for screening for respiratory tuberculosis Z11.1 06/15/2025 Active Personal history of malignant neoplasm of breast Z85.3 06/15/2025 Active Personal history of antineoplastic chemotherapy Z92.21 06/15/2025 Active Unspecified asthma, uncomplicated J45.909 06/15/2025 Active Other seasonal allergic rhinitis J30.2 06/15/2025 Active Personal history of irradiation Z92.3 06/15/2025 Active Other specified disorders of bone density and structure, unspecified site M85.80 06/15/2025 Active Collapsed vertebra, not elsewhere classified, thoracic region, subsequent encounter for fracture with routine healing M48.54XD 06/15/2025 Active Personal history of Methicillin resistant Staphylococcus aureus infection Z86.14 06/15/2025 Active Chronic kidney disease, stage 3 unspecified N18.30 06/15/2025 Activ e Mild intermittent asthma, uncomplicated J45.20 06/15/2025 Active Depression, unspecified F32.A 06/15/2025 Active Drug induced constipation K59.03 06/23/2025 Active Vitamin D deficiency, unspecified E55.9 06/15/2025 Active Results Test Result Date/Time Value / Unit Interp. Refere nce Range Tuberculosis reaction wheal[ 98562-4] Tuberculosis reaction wheal [30639-8] 06/29/2025 10:18 AM 0 mm NEG Tuberculosis reaction wheal[ 88509-8] Tuberculosis reaction wheal [62671-3] 06/29/2025 10:18 AM See note TB test Tuberculosis reaction wheal[ 72519-0] Tuberculosis reaction wheal [86558-2] 06/15/2025 02:51 PM See note TB test Allergies, adverse reactions, alerts Substance Reaction Date Status Type levofloxacin 06/13/2025 Non Drug Immunizations Vaccine Route Date Status COVID-19 Vaccine Unassigned Route of Administration Completed COVID-19 Vaccine Unassigned Route of Administration Completed COVID-19 Vaccine Unassigned Route of Administration Completed COVID-19 Vaccine Unassigned Route of Administration Completed COVID-19 Vaccine Unassigned Route of Administration Completed COVID-19 Vaccine Unassigned Route of Administration Completed Hepatitis Vaccine Unassigned Route of Administration 0 01/14/2023 Completed Hepatitis Vaccine Unassigned Route of Administration 0 12/06/2021 Completed Hepatitis Vaccine Unassigned Route of Administration 0 05/18/2015 Completed Influenza Vaccine Unassigned Route of Administration 1 11/22/2023 Completed Hepatitis Vaccine Unassigned Route of Administration 0 11/13/2014 Completed Pneumococcal Vaccine Unassigned Route of Administratio n 08/30/2018 Completed Pneumococcal Vaccine Unassigned Route of Administratio n 06/14/2020 Completed Tetanus Vaccine Unassigned Route of Administration Completed RSV Vaccine Unassigned Route of Administration 2022 Completed Tetanus Vaccine Unassigned Route of Administration Completed Zoster Vaccine Unassigned Route of Administration 11/2019 Completed Tetanus Vaccine Unassigned Route of Administration Completed Zoster Vaccine Unassigned Route of Administration 06/05 Completed Zoster Vaccine Unassigned Route of Administration 09/04 Completed COVID-19 Vaccine Unassigned Route of Administration Refused Medications Medication Instructions Route Dosage Frequency Start Date Stop Date Indications Status acetaminophen 325 mg tablet (acetaminophen ) 975 mg, oral, Three Times A Day oral 1.0 8.0 h 07/07 Pain, unspecified Active bupropion HCl 150 mg tablet extended release 24 hr (bupropion HCl) 150 mg, oral, Once A Day oral 1.0 1.0 d 07/07 Anxiety disorder, unspecified Active albuterol sulfate 90 mcg/actuation HFA aerosol inhaler (albuterol sulfate) 2 puffs, inhalation, Every 4 Hours - PRN inhalatio n 1.0 4.0 h 07/07 Mild intermittent asthma, uncomplicated Active hydroxyzine HCl 25 mg tablet (hydroxyzine HCl) 12.5 mg, oral, At Bedtime - PRN oral 1.0 06/15 Anxiety disorder, unspecified Active loratadine 10 mg tablet (loratadine) 10 mg, oral, Once A Day - PRN oral 1.0 1.0 d 07/06 Other allergic rhinitis Active melatonin 3 mg tablet (melatonin) 3 mg, oral, At Bedtime oral 1.0 07/06 Active oxycodone 5 mg tablet (oxycodone) 5-10 mg, oral, Twice A Day - PRN oral 1.0 12.0 h 06/20 Pain, unspecified Active sennosides-doc usate sodium 8.6-50 mg tablet (sennosides-do cusate sodium) 1 tablet, oral, Twice A Day oral 1.0 12.0 h 07/07 Drug induced constipation Active polyethylene glycol 3350 17 gram powder in packet (polyethylene glycol 3350) 17 gram, oral, Once A Day oral 1.0 1.0 d 06/23 Active triamcinolone acetonide 0.1 % ointment (triamcinolone acetonide) -, topical, Three Times A Day topical 1.0 8.0 h 06/21 Active epinephrine 0.3 mg/0.3 mL syringe (epinephrine) 0.3 mL, injection, Once - One Time - PRN 1.0 06/15 Other allergic rhinitis Active Aplisol (tuberculin ppd) 5 tub. unit /0.1 mL solution (Aplisol (tuberculin ppd)) 0.1 ml, intradermal, Once A Day Every 14 Days, Document Lot #, Expiration, and Retail Client Solutions Consultant in the Preventive Health Module. intraderm al 1.0 1.0 d 06/30 Encounter for screening for respiratory tuberculosis Active hydroxyzine HCl 25 mg tablet (hydroxyzine HCl) 12.5 mg, oral, At Bedtime - PRN oral 1.0 06/29 Anxiety disorder, unspecified Active cholecalcifero l (vitamin D3) 25 mcg (1,000 unit) tablet (cholecalcifer ol (vitamin D3)) 1,000 unit, oral, Once A Day oral 1.0 1.0 d 07/07 Vitamin D deficiency, unspecified Active oxycodone 5 mg tablet (oxycodone) 1 tablet (5 mg), oral, As Needed oral 1.0 1.0 d 06/26 Active polyethylene glycol 3350 17 gram powder in packet (polyethylene glycol 3350) 17 gram, oral, Once A Day - PRN oral 1.0 1.0 d 07/07 Drug induced constipation Active lidocaine 4 % adhesive patch,medicate d (lidocaine) 1 patch, topical, Once A Day, 12 hours on and 12 hours off. Pain is worse at night. topical 1.0 1.0 d 07/03 Active oxycodone 5 mg tablet (oxycodone) 1 tablet, oral, Once A Day oral 1.0 1.0 d 07/02 Active oxycodone 5 mg tablet (oxycodone) 1 tablet (5 mg), oral, Twice A Day - PRN oral 1.0 12.0 h 09/22/ 2025 09/26 /2025 Active hydroxyzine HCl 25 mg tablet (hydroxyzine HCl) 25 mg, oral, Every 4 Hours, Hydroxyzine 25 mg PO Q4H x 4 days. Dx : muscle spasms oral 1.0 4.0 h 07/03 Pain, unspecified Active ibuprofen 600 mg tablet (ibuprofen) 600 mg, oral, Three Times A Day, Ibuprofen 600mg PO TID x 4 days for pain Per Comfort, DOG POUND ATTENDANT oral 1.0 8.0 h 07/03 Pain, unspecified Active oxycodone 5 mg tablet (oxycodone) 1 tablet (5 mg), oral, Every 4 Hours, Oxycodone 5mg Q4hrs PRN,Comfort S, DOG POUND ATTENDANT . oral 1.0 4.0 h 07/03 Pain, unspecified Active oxycodone 5 mg tablet (oxycodone) 1 tablet, oral, Once A Day oral 1.0 1.0 d 06/30 Active Bactrim DS (sulfamethoxaz ole-trimethopr im) 800-160 mg tablet (Bactrim DS (sulfamethoxaz ole-trimethopr im)) 800/160 mg, oral, Twice A Day oral 1.0 12.0 h 07/05 Active oxycodone 5 mg tablet (oxycodone) 1 tablet (5 mg), oral, Every 4 Hours - PRN, Oxycodone 5mg Q4hrs PRN,Comfort S, DOG POUND ATTENDANT . oral 1.0 4.0 h 07/07 Pain, unspecified Active lidocaine 4 % adhesive patch,medicate d (lidocaine) 1 patch, topical, Twice A Day, 12 hours on and 12 hours off. Pain is worse at night. topical 1.0 12.0 h 07/07 Pain, unspecified Active hydroxyzine HCl 25 mg tablet (hydroxyzine HCl) 25 mg, oral, Three Times A Day - PRN, (hydroxyzine/ Vistaril) 25 mg po TID PRN for anxiety oral 1.0 8.0 h 07/07 Active Aplisol (tuberculin ppd) 5 tub. unit /0.1 mL solution (Aplisol (tuberculin ppd)) 0.1 ml, intradermal, Once A Day Every 14 Days, Document Lot #, Expiration, and Retail Client Solutions Consultant in the Preventive Health Module. intraderm al 1.0 1.0 d 07/07 Encounter for screening for respiratory tuberculosis Active Bactrim DS (sulfamethoxaz ole-trimethopr im) 800-160 mg tablet (Bactrim DS (sulfamethoxaz ole-trimethopr im)) 800/160 mg, oral, Twice A Day oral 1.0 12.0 h 07/07 Active epinephrine 0.3 mg/0.3 mL syringe (epinephrine) 0.3 mL, injection, Once - One Time - PRN 1.0 07/07 Other allergic rhinitis Active hydroxyzine HCl 25 mg tablet (hydroxyzine HCl) 12.5 mg, oral, At Bedtime - PRN oral 1.0 07/07 Anxiety disorder, unspecified Active hydroxyzine HCl 25 mg tablet (hydroxyzine HCl) 25 mg, oral, Every 4 Hours, Hydroxyzine 25 mg PO Q4H x 4 days. Dx : muscle spasms oral 1.0 4.0 h 07/07 Pain, unspecified Active ibuprofen 600 mg tablet (ibuprofen) 600 mg, oral, Three Times A Day, Ibuprofen 600mg PO TID x 4 days for pain Per Comfort, DOG POUND ATTENDANT oral 1.0 8.0 h 07/07 Pain, unspecified Active oxycodone 5 mg tablet (oxycodone) 5-10 mg, oral, Twice A Day - PRN oral 1.0 12.0 h 07/07 Pain, unspecified Active Vital Signs Date Vital Result Comment 06/15/2025 08:38 PM Temperature (8310-5) 98.4 [degF] Oxygen Saturation (41479-3) 95 % Respiratory Rate (9279-1) 20 /min Heart Rate (8867-4) 100 /min Blood Pressure Systolic (8480-6) 125 mm[Hg] Blood Pressure Diastolic (8462-4) 77 mm[Hg] 06/15/2025 11:13 PM Temperature (8310-5) 97.9 [degF] Oxygen Saturation (18437-0) 98 % Respiratory Rate (9279-1) 20 /min Heart Rate (8867-4) 98 /min Blood Pressure Systolic (8480-6) 122 mm[Hg] Blood Pressure Diastolic (8462-4) 66 mm[Hg] 06/16/2025 10:00 AM Body Height (8302-2) 61 [in_us] 06/16/2025 09:57 AM Temperature (8310-5) 98 [degF] Oxygen Saturation (18708-4) 98 % Respiratory Rate (9279-1) 16 /min Heart Rate (8867-4) 88 /min Blood Pressure Systolic (8480-6) 129 mm[Hg] Blood Pressure Diastolic (8462-4) 80 mm[Hg] 06/16/2025 11:32 AM Body Weight (61773-3) 154.2 [lb_av ] Body Mass Index (85103-8) 29.13 kg/m2 06/16/2025 11:40 AM Temperature (8310-5) 97.5 [degF] Oxygen Saturation (23112-4) 98 % Respiratory Rate (9279-1) 16 /min Heart Rate (8867-4) 97 /min Blood Pressure Systolic (8480-6) 136 mm[Hg] Blood Pressure Diastolic (8462-4) 61 mm[Hg] 06/16/2025 05:09 PM Temperature (8310-5) 98 [degF] Oxygen Saturation (14819-6) 96 % Respiratory Rate (9279-1) 18 /min Heart Rate (8867-4) 99 /min Blood Pressure Systolic (8480-6) 114 mm[Hg] Blood Pressure Diastolic (8462-4) 73 mm[Hg] 06/16/2025 07:47 PM Temperature (8310-5) 98 [degF] Oxygen Saturation (76196-8) 98 % Respiratory Rate (9279-1) 18 /min Heart Rate (8867-4) 105 /min Blood Pressure Systolic (8480-6) 116 mm[Hg] Blood Pressure Diastolic (8462-4) 56 mm[Hg] 06/17/2025 12:17 PM Body Weight (59161-0) 155 [lb_av] Body Mass Index (68586-8) 29.28 kg/m2 06/17/2025 05:21 PM Temperature (8310-5) 99 [degF] Oxygen Saturation (32612-4) 98 % Respiratory Rate (9279-1) 18 /min Heart Rate (8867-4) 97 /min Blood Pressure Systolic (8480-6) 123 mm[Hg] Blood Pressure Diastolic (8462-4) 82 mm[Hg] 06/18/2025 12:18 PM Body Weight (19214-6) 154.5 [lb_av ] Body Mass Index (52101-3) 29.19 kg/m2 06/18/2025 07:56 PM Temperature (8310-5) 98 [degF] Oxygen Saturation (46870-7) 99 % Respiratory Rate (9279-1) 18 /min Heart Rate (8867-4) 101 /min Blood Pressure Systolic (8480-6) 121 mm[Hg] Blood Pressure Diastolic (8462-4) 50 mm[Hg] 06/19/2025 07:52 PM Temperature (8310-5) 98.1 [degF] Oxygen Saturation (00530-1) 95 % Respiratory Rate (9279-1) 18 /min Heart Rate (8867-4) 102 /min Blood Pressure Systolic (8480-6) 144 mm[Hg] Blood Pressure Diastolic (8462-4) 81 mm[Hg] 06/20/2025 05:44 PM Temperature (8310-5) 97.3 [degF] 06/20/2025 05:43 PM Oxygen Saturation (08572-5) 94 % Respiratory Rate (9279-1) 18 /min Heart Rate (8867-4) 105 /min Blood Pressure Systolic (8480-6) 131 mm[Hg] Blood Pressure Diastolic (8462-4) 91 mm[Hg] 06/21/2025 10:31 PM Temperature (8310-5) 98.1 [degF] Oxygen Saturation (66667-7) 95 % Respiratory Rate (9279-1) 18 /min Heart Rate (8867-4) 100 /min Blood Pressure Systolic (8480-6) 131 mm[Hg] Blood Pressure Diastolic (8462-4) 81 mm[Hg] 06/22/2025 09:16 PM Temperature (8310-5) 97.9 [degF] Oxygen Saturation (50419-0) 92 % Respiratory Rate (9279-1) 18 /min Heart Rate (8867-4) 100 /min Blood Pressure Systolic (8480-6) 129 mm[Hg] Blood Pressure Diastolic (8462-4) 76 mm[Hg] 06/23/2025 05:16 PM Temperature (8310-5) 98 [degF] Oxygen Saturation (81184-8) 93 % Respiratory Rate (9279-1) 18 /min Heart Rate (8867-4) 108 /min Blood Pressure Systolic (8480-6) 97 mm[Hg] Blood Pressure Diastolic (8462-4) 80 mm[Hg] 06/24/2025 09:54 PM Temperature (8310-5) 97.8 [degF] Oxygen Saturation (76786-5) 94 % Respiratory Rate (9279-1) 18 /min Heart Rate (8867-4) 99 /min Blood Pressure Systolic (8480-6) 111 mm[Hg] Blood Pressure Diastolic (8462-4) 70 mm[Hg] 06/25/2025 08:18 PM Temperature (8310-5) 97.6 [degF] Oxygen Saturation (09044-5) 95 % Respiratory Rate (9279-1) 18 /min Heart Rate (8867-4) 110 /min Blood Pressure Systolic (8480-6) 128 mm[Hg] Blood Pressure Diastolic (8462-4) 86 mm[Hg] 06/26/2025 05:02 PM Temperature (8310-5) 97.5 [degF] Oxygen Saturation (40466-9) 97 % Respiratory Rate (9279-1) 18 /min Heart Rate (8867-4) 78 /min Blood Pressure Systolic (8480-6) 118 mm[Hg] Blood Pressure Diastolic (8462-4) 81 mm[Hg] 06/27/2025 09:14 PM Temperature (8310-5) 97.7 [degF] Oxygen Saturation (30154-1) 94 % Respiratory Rate (9279-1) 18 /min Heart Rate (8867-4) 100 /min Blood Pressure Systolic (8480-6) 114 mm[Hg] Blood Pressure Diastolic (8462-4) 78 mm[Hg] 06/28/2025 05:13 PM Temperature (8310-5) 98.1 [degF] Oxygen Saturation (24881-3) 93 % Respiratory Rate (9279-1) 20 /min Heart Rate (8867-4) 99 /min Blood Pressure Systolic (8480-6) 134 mm[Hg] Blood Pressure Diastolic (8462-4) 81 mm[Hg] 06/29/2025 07:31 PM Temperature (8310-5) 98.8 [degF] Oxygen Saturation (80874-8) 95 % Respiratory Rate (9279-1) 18 /min Heart Rate (8867-4) 82 /min Blood Pressure Systolic (8480-6) 128 mm[Hg] Blood Pressure Diastolic (8462-4) 72 mm[Hg] 06/29/2025 05:16 PM Temperature (8310-5) 98.8 [degF] Oxygen Saturation (65014-6) 96 % Respiratory Rate (9279-1) 18 /min Heart Rate (8867-4) 105 /min Blood Pressure Systolic (8480-6) 124 mm[Hg] Blood Pressure Diastolic (8462-4) 83 mm[Hg] 06/30/2025 04:53 PM Temperature (8310-5) 98.8 [degF] Oxygen Saturation (55833-1) 96 % Respiratory Rate (9279-1) 18 /min Heart Rate (8867-4) 115 /min Blood Pressure Systolic (8480-6) 133 mm[Hg] Blood Pressure Diastolic (8462-4) 98 mm[Hg] 07/01/2025 09:18 PM Temperature (8310-5) 98 [degF] Oxygen Saturation (37356-7) 97 % Respiratory Rate (9279-1) 18 /min Heart Rate (8867-4) 99 /min Blood Pressure Systolic (8480-6) 113 mm[Hg] Blood Pressure Diastolic (8462-4) 69 mm[Hg] 07/02/2025 08:02 PM Temperature (8310-5) 98 [degF] Oxygen Saturation (80906-4) 97 % Respiratory Rate (9279-1) 18 /min Heart Rate (8867-4) 97 /min Blood Pressure Systolic (8480-6) 117 mm[Hg] Blood Pressure Diastolic (8462-4) 78 mm[Hg] 07/03/2025 08:26 PM Temperature (8310-5) 98.5 [degF] Oxygen Saturation (79641-3) 95 % Respiratory Rate (9279-1) 19 /min Heart Rate (8867-4) 89 /min Blood Pressure Systolic (8480-6) 121 mm[Hg] Blood Pressure Diastolic (8462-4) 76 mm[Hg] 07/04/2025 09:01 PM Temperature (8310-5) 98.2 [degF] Oxygen Saturation (39914-3) 93 % Respiratory Rate (9279-1) 18 /min Heart Rate (8867-4) 95 /min Blood Pressure Systolic (8480-6) 124 mm[Hg] Blood Pressure Diastolic (8462-4) 78 mm[Hg] 07/05/2025 08:37 PM Temperature (8310-5) 98.2 [degF] Oxygen Saturation (80452-5) 99 % Respiratory Rate (9279-1) 18 /min Heart Rate (8867-4) 98 /min Blood Pressure Systolic (8480-6) 159 mm[Hg] Blood Pressure Diastolic (8462-4) 87 mm[Hg] 07/06/2025 09:22 PM Body Weight (60728-3) 154.2 [lb_av ] Body Mass Index (39457-9) 29.13 kg/m2 07/06/2025 09:30 PM Temperature (8310-5) 98 [degF] Oxygen Saturation (08675-1) 98 % Respiratory Rate (9279-1) 18 /min Heart Rate (8867-4) 81 /min Blood Pressure Systolic (8480-6) 101 mm[Hg] Blood Pressure Diastolic (8462-4) 59 mm[Hg] Social History No smoking Hx information available Encounters Type CPT Code Date Location Provider Indication s encounter report 06/15/2025 03:3 0 PM - 07/07/2025 10:57 AM Berta Toledo MD Advance Directives Directive Description Verification Date Supporting Document(s) Other Directive
--- OUTSIDE RECORDS SUMMARY | 2025-08-28 16:52 | XMS_ITS | Continuity of Care Document ---
Author Organization [facility] Address [address] [place] [address] Assessment Encounter Date Assessment Date Assessment LastModified by Organization Details LastModified Time 08/24/2025 08/24/2025 ASSESSMENT: Patient is a good candidate for [...] should not hesitate to contact our office. [email or web address] Not available 08/24/2025 19:22:29 Plan of Treatment Reminders Order Date Submit Date Provider Last Modified By Organization Details Last Modified Time Details Appointments None recorded. Lab None recorded. Referral None recorded. Procedures None recorded. Surgeries None recorded. Imaging XR, lumbosacral spine, 2 or 3 view 2024 025 [email or web address] Not available 15:08:07 MRI, lumbar spine, w/o contrast 2024 025 [email or web address] Not available 15:08:07 MRI, lumbar spine, w/o contrast 2024 025 [email or web address] Not available 15:08:07 Medication Orders None recorded. Patient TargetsNo targets recorded. Patient InstructionsNo instructions recorded. Reason for Referral None Reported. Problems Name Problem SNOMED Code Status Onset Date Resolution Date Notes Provider Name and Address Organization Details Recorded Time Lumbar radiculopat hy 931017128 Active 2024 Bashir Ricky Andersonjesus alberto, [place] [address], [place], [address], [facility] 14:10:15 Disorder of lumbar spine 258097385 Active 2024 Bashir García Monicajesus alberto, TIMI [address], [place], [address], [facility] 14:10:15 Lumbar segmental dysfunction 977192438 Active 2024 Bashirderek García Monicajesus alberto, [place] [address], [place], [address], [facility] 14:10:15 Lesion of lumbar spine 285404964 Active 2024 Bashir García Monicajesus alberto, TIMI [address], [place], [address], [facility] 14:10:15 Low back strain 191504434 Active 2024 Bashir García Monicajesus alberto, [place] [address], [place], [address], [facility] 14:10:15 Somatic dysfunction of sacral spine 773187213 Active 2024 Bashir García Monicajesus alberto, [place] [address], [place], [address], [facility] 14:10:15 Spasm of muscle of lower back 5181608695513 9105 Active 2024 Basihrderek García Monicajesus alberto, [place] [address], [place], [address], [facility] 14:10:15 Neck pain 34306341 Active 2024 Bashir Leonard [place] [address], [place], [address], [facility] 14:10:25 Thoracic segmental dysfunction 375549603 Active 2024 Bashir Leonard [place] [address], [place], [address], [facility] 14:10:25 Cervical segmental dysfunction 830782369 Active 2024 Bashir Leonard [place] [address], [place], [address], [facility] 14:10:25 Problem Notes None recorded. Procedures Surgical History Date Name Laterality Status Provider Name and Address Organization Details Recorded Time 58709: Spinal manipulation , 3 to 4 regions completed Vishnu Guerrerogiulianoerlinda [place] [address], [place], [address], [facility] 08/24/2025 19:22:29 74737: Spinal manipulation , 3 to 4 regions completed Bashir Leonard [place] [address], [place], [address], [facility] 08/21/2025 12:49:59 04128: Spinal manipulation , 3 to 4 regions completed Bashir Leonard [place] [address], [place], [address], [facility] 08/18/2025 14:13:26 Imaging Results None recorded. Procedure Notes None recorded. Medical Equipment None Reported. Allergies Allergen ID Allergen Name Allergen Category Reaction Reaction Severity Criticality Documentation Date Start Date Code Code System Note Provider Name and Address Organization Details Recorded Time 15148 levofloxa dimas medicatio n Not available Not available Not available 08/18/20252024 02855 RxNorm unrec ogniz ed react ion (text : Eryth ayaz, code: 48388 1003) (from [facility] e) Not Available vinod - External [...] ICD10 Code Diagnosis IMO Codes Diagnosis Note [id number] Bashir Leonard [place] [facility] [address] [facility] [place] [address] 08/18/2025 12:09:29 08/18/2025 15:03:30 Lumbar radiculopathy 230098415 M54.16 Spasm of m uscle of lower back 4614836879 7868637 M62.830 Lumbar seg mental dysfunction 973649026 M99.03 Somatic dy sfunction of sacral spine 995945240 M99.04 Disorder o f lumbar spine 373161342 M53.9 Lesion of lumbar spine 462202658 M99.9 Low back strain 10527462 1 S39.012A S39.012D Cervical s egmental dysfunction 186834151 M99.01 Neck pain 58925964 M54.2 Thoracic s egmental dysfunction 740894610 M99.02 [id number] Bashir Leonard [place] [facility] & [address] [place] [address] 08/21/2025 09:37:20 08/21/2025 15:41:20 Lumbar radiculopathy 109087508 M54.16 Spasm of m uscle of lower back 6267908927 1891294 M62.830 Lumbar seg mental dysfunction 559463748 M99.03 Somatic dy sfunction of sacral spine 401634393 M99.04 Disorder o f lumbar spine 315320726 M53.9 Lesion of lumbar spine 629438014 M99.9 Low back strain 66023518 1 S39.012A S39.012D Cervical s egmental dysfunction 513415124 M99.01 Neck pain 75113636 M54.2 Thoracic s egmental dysfunction 626730844 M99.02 [id number] Vishnu Hernandez [place] [facility] & [address] [place] [address] 08/24/2025 16:51:41 08/25/2025 15:08:07 Lumbar radiculopathy 558803331 M54.16 Spasm of m uscle of lower back 0107325454 7567769 M62.830 Lumbar seg mental dysfunction 877404930 M99.03 Somatic dy sfunction of sacral spine 792189929 M99.04 Disorder o f lumbar spine 089871663 M53.9 Lesion of lumbar spine 446933121 M99.9 Low back strain 42924907 1 S39.012A S39.012D Cervical s egmental dysfunction 240113992 M99.01 Neck pain 60575863 M54.2 Thoracic s egmental dysfunction 033151129 M99.02 Health Concerns Section Related Observation LastModified by Organization Detai ls LastModified Time None Recorded Concern Status LastModified by Organization Details LastModified Time None Recorded Payers Encounter Date Sequence Insurance Name Policy Number Policy Islas Covered Member ID Islas Member ID Guarantor Name 08/24/2025 1 [place]: [employer] Heather Patton [id number] 1 Heather Patton 08/24/2025 2 [facility] [id number] Heather Patton [id number] Heather Patton Notes Date Note Type Note Provider Name and Address Organization Details Recorded Time 08/24/2025 text/html HPI - Cervical SpineReported by PatientHPIFor [...] to stand. For alleviating factors, patient reportsrest. Vishnu Hernandez [place] [address] [place] [address], [place], [address], [facility] 08/24/2025 19:23:10 OBGyn Episode No OBEpisode recorded.
--- OUTSIDE RECORDS SUMMARY | 2025-08-28 16:52 | XMS_ITS | Clinical Summary ---
Author Organization [employer] [facility] Address [address] [place] [id number] Care Team Providers Care Stroke Belt Sander Operator Name Role Phone Guero Amador Unavailable Unavailable Danielle Taylor MD Primary Care Provider [phone] Julien Cagle MD Unavailable [phone] Allergies Active Allergy Reactions Criticality Noted Date Comments Levofloxacin Erythema facial erythema/itching Norris Flavor Unlisted Allergen (Include Detail In Comments) Angioedema 04/27/2008 Tabouli--shania cole boulgar Medications albuterol HFA (Ventolin HFA) 90 mcg/actuation inhalerIndicatio [...] morning. 90 Tablet 3 06/01/20 25 Active lidocaine 5 % topical patchIndications :Chest pain on breathing,Rib injury Apply on dry, clean, hairless skin. Apply 1 patch to painful area of skin for up to to 12 hours within 24 hour period. 30 Patch 11 06/01/20 25 Active cholecalciferol (VITAMIN D3) 1,000 unit tablet Take 1,000 units by mouth once daily. 06/16/20 25 Active acetaminophen (TYLENOL) 325 mg tablet Take 975 mg by mouth three times daily. 06/15/20 25 Active cyanocobalamin (VITAMIN B12) as quarter tablet Take by mouth once daily. Active buPROPion (WELLBUTRIN XL) 150 mg Extended-Release tablet Take 150 mg by mouth once daily. Active vit C/E/Zn/coppr/lut ein/zeaxan ([facility]-2 ORAL) Take by mouth. Activ e meclizine (ANTIVERT) 25 mg tabletIndication s:Vertigo Take 1 Tablet (25 mg) by mouth 3 times daily if needed for Vertigo. 30 Tablet 08/14/20 25 Active clobetasol 0.05% (TEMOVATE 0.05% OINTMENT) 0.05 % ointmentIndicati ons:Hand dermatitis Apply topically to affected area(s) two times daily. Apply to hand rash 30 g 11/24/19 23 025 Discontin ued(*Med complete/ Regimen complete/ Level of care change) Nystop powder Apply topically to affected area(s) each time if needed. 04/01/20 23 025 Discontin ued(*Med complete/ Regimen complete/ Level of care change) desonide 0.05% (TRIDESILON 0.05% CREAM) 0.05 % creamIndications :Hand dermatitis APPLY TO THE AFFECTED AREA UNDER THE ARMS AND GROIN AREA ONCE DAILY FOR UP TO TWO WEEKS. MAY REPEAT NEEDED FOR FLARE UPS. 15 g 07/02/20 23 025 Discontin ued(*Med complete/ Regimen complete/ Level of care change) triamcinolone 0.1 % lotionIndication s:Rash Apply topically to affected area(s) three times daily. 120 mL 11/02/19 25 025 Discontin ued(*Med complete/ Regimen complete/ Level of care change) triamcinolone 0.1 % ointmentIndicati ons:Hand dermatitis Apply topically to affected area(s) three times daily. 80 g 11/02/19 025 Discontin ued(*Med complete/ Regimen complete/ Level of care change) loratadine (CLARITIN) 10 mg tabletIndication s:Hand dermatitis,Rash Take 1 Tablet (10 mg) by mouth once daily. 30 Tablet 11/02/19 025 Discontin ued(*Med complete/ Regimen complete/ Level of care change) valACYclovir (VALTREX) 1 gram tabletIndication s:Cold sore TAKE 2 TABLETS BY MOUTH TWICE DAILY FOR 1 DAY 14 Tablet 2 06/01/20 025 Discontin ued(*Med complete/ Regimen complete/ Level of care change) HYDROcodone-acet aminophen (5-325 mg/tablet)Indica tions:Chest pain on breathing Take 1 Tablet by mouth every 4 hours if needed for Pain. Max acetaminophen dose: 4000 mg in 24 hrs. 5 Tablet 06/01/20 025 Discontin ued(*Med complete/ Regimen complete/ Level of care change) Hospital, Clinic, or Other Facility Administered Medication Ordered Dose Route Frequency Start Date End Date Status denosumab-bbdz (JUBBONTI) 60 mg/mL subcutaneous syringeIndications:Age-rel ated osteoporosis with current pathological fracture, initial encounter (HC),Age-related osteoporosis with current pathological fracture, vertebra(e), subsequent encounter for fracture with routine healing 60 mg SubQ Q 26 WEEKS 07/28/2025 07/26/2026 Acti ve Active Problems Problem Noted Date Diagnosed Date [...] Encounters Date Type Department Care Team Description 08/28/2025 Nurse Triage [facility] [[email or web address] [address] [place] [address] Danielle Taylor MD Difficulty Breathing 08/25/2025 10:47 AM COMMERCIAL SALES MANAGER - 08/25/2025 11:59 PM COMMERCIAL SALES MANAGER Hospital Encounter [address] [address] Kavon Berg DO Iverson, Ryan, PT 08/25/2025 Telephone [facility] [[email or web address]] [address] [place] [address] Danielle Taylor MD Referral (Genetic testing ) 08/25/2025 Travel 08/17/2025 1:47 PM COMMERCIAL SALES MANAGER - 08/17/2025 11:59 PM COMMERCIAL SALES MANAGER Hospital Encounter [address] [address] Kavon Berg DO Kaufenberg, Rachel, PT Vertigo 08/17/2025 Travel 08/16/2025 Telephone [facility] [[email or web address]] [address] [place] [address] Kavon Berg DO Follow Up 08/15/2025 Orders Only [facility] [[email or web address] [address] Gabriela Lange, RElsa (ARRT) 1 scan: (1-Ord) NFLD_EKG_08/14/2025 08/14/2025 11:15 AM COMMERCIAL SALES MANAGER Orders Only [facility] [[email or web address]] [place] [address] <No scans attached> 08/14/2025 10:10 AM COMMERCIAL SALES MANAGER Office Visit [place] [address] [place] [address] Kavon Berg, DO Vertigo (X1 day - woke up this AM with dizziness) 08/14/2025 8:45 AM COMMERCIAL SALES MANAGER Nurse/Clinic Staff Only [place] [address] [place] [address] Error-please disregard 08/14/2025 Travel 08/02/[address] [place] [address] Danielle Taylor MD Follow Up 07/27/2025 10:30 AM CDT Office Visit [address] [address] Julien Cagle MD Consult (Menopause, Closed compression fracture of thoracic vertebra) 07/26/2025 Travel 07/24/2025 1:00 PM CDT Ancillary Procedure [address] [place] [address] 07/24/2025 Travel 07/21/[address] [address] Julien Cagle MD Questions 07/21/[address] [place] [address] Danielle Taylor MD Questions (To help expedite healing, bone density appt and endocrinology appt) 07/13/2025 12:45 PM CDT Office Visit [address] [place] [address] Danielle Taylor MD Hospital F/U ([facility] DOD 06/15/25, [facility] DOD 07/07/25) 07/13/2025 Travel 06/20/[address] [place] [address] Oncology, [facility] Questions 06/05/2025 Orders Only [facility] Scanner 1 scan: (1-Ord) [facility], CT LUMBAR SPINE WO CON, 06/05/2025 06/05/2025 Orders Only [facility] Scanner 1 scan: (1-Ord) [place], THORACIC SPINE WO CON, 06/05/2025 06/05/2025 Orders Only [facility] Scanner 1 scan: (1-Ord) [facility], CT THORACIC SPINE WO CON, 06/05/2025 06/02/2025 Nurse T[address] [address] Danielel Taylor MD Back Pain 06/02/[address] [address] Danielle Taylor MD Need Meds (HYDROcodone-acetami nophen/) 06/02/[address] [address] Danielle Taylor MD Prior Authorization (lidocaine 5 % topical patch - DENIED) 06/01/2025 1:00 PM CDT Ancillary Procedure [address] [address] 06/01/2025 10:50 AM CDT Office Visit [address] [address] Danielle Taylor MD Medicare ANNUAL (subsequent) Visit (75 year old); ER Follow up ([facility], 05/31/2025, Rib pain) 06/01/[address] [address] Danielle Taylor MD Medication Management 06/01/2025 Travel 05/31/2025 Orders Only [facility] Scanner 1 scan: (1-Ord) [facility], XR RIB LT MIN 3V W CXR1V, 05/31/2025 05/31/2025 Nurse Triage [facility] [[email or web address]] [address] [place] [address] Danielle Taylor MD Back Pain from Last 3 Months Immunizations Immunization Administration Dates Next Due COVID-19 VACCINE SPIKEVAX (M ODERNA 50MCG/0.5ML) 12YO+ PFS 02/11/2024 COVID-19 vaccine (Pfizer-Bio NTech 30mcg/0.3mL) 12YO+ BIVALENT PF, MDV 07/25/2022 COVID-19 vaccine (Pfizer-Bio NTech 30mcg/0.3mL) PF, MDV 09/05/2021 Hepatitis A (Adult) 05/18/2015,11/13/2014 Hepatitis B (Adult) 02/11/2024,01/14/2023,2021 Influenza Virus, Unspecified 08/23/2018 Influenza, High-dose Inactivated 09/21/2024,08/05 Influenza, High-dose Quadriv alent Inactivated 07/24/2023 Influenza, IIV3 (Age >=3 years) 07/29/2013,07/16,07/05/2011 Influenza, IIV4 07/24/2014 Influenza, Inactivated AIIV4 (Age 65+ Years) Preserv Free 07/25/2022,12/06/2021,06/14/2020 Influenza, Inactivated IIV3 (Age 65+ Years) Preserv Free 07/13/2025,07/14/2019,06/02/2017 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 0 08/14/2025 Alcohol Use Answer Date Recorded How often do you have a drink containing alcohol ? 0 08/14/2025 How many drinks containing a lcohol do you have on a typical day when you are drinking? 0 08/14/2025 How often do you have five or more drinks on one occasion? 0 08/14/2025 Financial Resource Strain Answer Date R ecorded Difficulty of Paying Living Expenses 3 08/14/2025 Difficulty of Paying Living Expenses Not on file 08/14/2025 Food Insecurity Answer Date Recorded Do you worry your food will run out before you are able to buy more? 1 08/14/2025 Transportation Needs Answer Date Record ed Does lack of transportation keep you from medica l appointments? 1 08/14/2025 Does lack of transportation keep you from work, meetings or getting things that you need? 1 08/14/2025 Housing Stability Answer Date Recorded What is your housing situation today? 1 08/14/2025 Utilities Answer Date Recorded Do you have trouble paying f or utilities (for example, heat, electricity, water, phone)? 1 08/14/2025 Comments No Sex and Gender Information Value Date Recorded Sex Assigned at Not on file Legal Sex Female 5:26 AM COMMERCIAL SALES MANAGER Gender Identity Not on file Sexual Orientation [...] Sign Reading Time Taken Comments Blood Pressure 138/92 08/14/2025 9:57 AM COMMERCIAL SALES MANAGER Pulse 79 08/14/2025 9:57 AM COMMERCIAL SALES MANAGER Temperature 36.6 C (97.8 F) 06/25/2023 11:19 AM CDT Respiratory Rate 16 06/25/2023 11:19 AM CDT Oxygen Saturation 98% 08/14/2025 9:57 AM COMMERCIAL SALES MANAGER Inhaled Oxygen Concentration - - Weight 68.5 kg (151 lb) 07/27/2025 10:33 AM CDT Height 156.8 cm (5' 1.73) 06/01/2025 11:03 AM C DT Body Mass Index 27.86 06/01/2025 11:03 AM CDT Plan of Treatment Upcoming Encounters Date Type Department Care Team (Latest Contact Info) Description 08/30/2025 1:00 PM COMMERCIAL SALES MANAGER Appointment [facility] [address] [facility] [place] [address] Maddison Lundberg, PT [address] [place] [address] 09/04/2025 12:45 PM COMMERCIAL SALES MANAGER Nurse/Clinic Staff Only [facility] [[email or web address]] [place] [address] [address] 09/07/2025 2:30 PM COMMERCIAL SALES MANAGER Appointment [facility] [address] [facility] [place] [address] Erwin Quezada, PT [address] [facility] [place], [place] [address] Health Maintenance Due Date Last Done Comments Colonoscopy through age 75 08/13/202508/13, 08/13/2022, 08/13/2022, [...] 10/22/2028 10/22/2018, 10/05, 11/23/2007, Additional history exists Pneumococcal series for age 50+ Completed 06/14/2020, 08/30/2018, 11/13/2014 Zoster (shingles) series for age 50+ Completed 06/21/2020, 04/05/2020, 04/04/2020, Additional history exists Hepatitis C screening for ag e 18-79 Completed 06/12/2023 RSV vaccine for adults or Completed 08/13/2023 Hepatitis B series for 19+ Completed 02/10, 01/14/2023, 12/06/2021 Influenza Vaccine Completed 07/13/2025, , 07/25/2022, Additional history exists DEXA/DXA scan for age 65+ Completed 2024, 07/19/2019, 09/06/2013 Medical Devices Implanted Type Area Family Preservation Caseworker Device Identifier Shelf Expiration Date Model / Serial / Lot Port X Port Mri 6fr Venous Cath Kit [id number] - [id number] Implanted:Qty: 1 on 07/04/2008 at [facility] [employer] [id number] / / [id number] Procedures Procedure Name Priority Date/Time Associated Diagnosis Comments SC READING EKG - NO CHARGE, COMP ONLY Routine 08/15/2025 4:21 PM COMMERCIAL SALES MANAGER Vertigo EKG 12 LEAD Routine 08/15/2025 4:21 PM COMMERCIAL SALES MANAGER Vertigo US CAROTID DUPLEX BILATERAL TYSHAWN 08/14/2025 12:09 PM COMMERCIAL SALES MANAGER Bruit of left carotid artery XR DXA BONE DENSITY 2 SITES AXIAL AND 1 SITE PERIPHERAL Routine 07/24/2025 1:40 PM CDT Closed compression fracture of thoracic vertebra with routine healing, subsequent encounter Menopause SCAN-CT INTERPRETATION 5 12:00 AM CDT SCAN-CT INTERPRETATION 5 12:00 AM CDT SCAN-CT INTERPRETATION 5 12:[address] CHEST PE STUDY STAT 06/01/2025 1:0 [...] REFLEX MEASURED LDL Routine 09/17/2023 10:54 AM COMMERCIAL SALES MANAGER Lipid screening ANTI HCV Routine 06/12/2023 4:06 PM CDT Need for hepatitis C screening test COLONOSCOPY SCREENING Routine 08/13/2022 7:30 AM COMMERCIAL SALES MANAGER History of colon polyps from Last 3 Months or Most Recently Relevant to Health Maintenance Results * EKG 12 LEAD (08/15/2025 4:21 PM COMMERCIAL SALES MANAGER) us Adei Shaqra DO EKG ORD Final Result * SC READING EKG - NO CHARGE, COMP ONLY (08/15/2025 4:21 PM COMMERCIAL SALES MANAGER) us Adei Shaqra DO PB - PROVIDER READINGS Final Res ult * US CAROTID DUPLEX BILATERAL (08/14/2025 12:09 PM COMMERCIAL SALES MANAGER) Anatomical Region Laterality Modality CAROTID, NECK Ultrasound 08/14/2025 12:2 6 PM COMMERCIAL SALES MANAGER Impressions 08/14/2025 12:26 PM COMMERCIAL SALES MANAGER 1. Minimal bilateral plaque without stenosis. Dictated by Ethan Forde MD @ 08/14/2025 12:26:36 PM (Electronically Signed) Narrative 08/14/2025 12:26 PM COMMERCIAL SALES MANAGER For Patients: As a result of the Cures Act, medical imaging exams and procedure reports are released immediately into your electronic medical record. You may view this report before your referring provider. If you have questions, please contact your health care provider. INDICATION: Left carotid bruit. Vertigo. TECHNIQUE: The carotid circulations and the vertebral arteries in the neck were examined with segal-scale ultrasound, color-flow and Doppler spectral analysis. Degrees of stenosis were determined using SRU 2002 Consensus Panel Criteria. COMPARISON: None FINDINGS: Multiple sonographic images with grayscale, color Doppler and spectral Doppler analysis were obtained demonstrate without significant atherosclerotic plaque in the carotid arteries bilaterally. Velocities are within normal limits bilaterally. The right ICA/CCA ratio is 1.1 and the left ICA/CCA ratio is 1.0. Spectral waveforms are normal. Both vertebral arteries are antegrade. Procedure Note Ethan Forde MD - 08/14/2025 For Patients: As a result of the Cures Act, medical imagingexams and procedure reports are released immediately into your electronicmedical record. You may view this report before your referring provider.If you have questions, please contact your health care provider. INDICATION: Left carotid bruit. Vertigo. TECHNIQUE: The carotid circulations and the vertebral arteries in the neck wereexamined with segal-scale ultrasound, color-flow and Doppler spectralanalysis. Degrees of stenosis were determined using SRU 2002 ConsensusPanel Criteria. COMPARISON: None FINDINGS: Multiple sonographic images with grayscale, color Doppler and spectralDoppler analysis were obtained demonstrate without significantatherosclerotic plaque in the carotid arteries bilaterally. Velocities arewithin normal limits bilaterally. The right ICA/CCA ratio is 1.1 and theleft ICA/CCA ratio is 1.0. Spectral waveforms are normal. Both vertebralarteries are antegrade. IMPRESSION: 1. Minimal bilateral plaque without stenosis. Dictated by Ethan Forde MD @ 08/14/2025 12:26:36 PM (Electronically Signed) us Kavon Berg DO US Final Result * (ABNORMAL) XR DXA BONE DENSITY 2 SITES AXIAL AND 1 SITE PERIPHERAL (07/24/2025 1:40 PM CDT) Anatomical Region Laterality Modality LUMBAR SPINE Other Impressions 07/27/2025 7:26 PM CDT Osteoporosis. RECOMMENDATIONS: The National Osteoporosis Foundation recommends pharmacologic treatment for patients with T-scores of -2.5 or less, patients with prior history of fragility fractures, or patients with 10-year probability of greater than 3% at hips or greater than 20% of suffering major osteoporotic fractures. Recommend continued optimization of calcium and vitamin D intake through dietary means and/or supplementation and regular exercise. Consider pharmacologic therapy for osteoporosis. Follow-up bone density reading in 2 years if therapy initiated to assess therapeutic efficacy. Dawn Carlton PA-C [email or web address] [facility] 07/27/2025 Narrative 07/27/2025 7:26 PM CDT For Patients: Results are automatically released to your [email or web address] ([employer]) account once available, in compliance with federal regulations. This means that you may see your results before your provider has had a chance to review them. Please allow 2-3 business days for your provider to comment on the results. XR DXA Bone Mineral Density (BMD) EXAM LOCATION: [address] [address] PATIENT NAME: Heather Patton DATE OF : 1950 EXAM DATE: 07/24/2025 REQUESTING PROVIDER: Danielle Taylor MD GENDER AT : female HEIGHT: 5' 1.73 (06/01/2025) WEIGHT: 150 lb 9.6 oz (06/01/2025) MENOPAUSAL STATUS: Postmenopausal RACE/ETHNICITY: White RISK FACTORS: Height Loss (2 inches or more), History of Fragility Fracture (at a major site), and White Race CURRENT MEDICATION FOR BONE LOSS: NONE INDICATION: Menopause and COMPRESSION FRACTURE COMPARISON DATE(S): 2018 DXA scans are compared to prior studies for a patient only when the two (or more) studies were performed on the same scanner. It is not possible to compare data generated on one scanner to data from another because there are not standards in DXA equipment. This applies even if the two scanners are made by the same daycare provider. PROCEDURE: Dual-energy x-ray absorptiometry performed with routine technique. Reporting is completed in the form of a T-score. The T-score represents the standard deviation from peak bone mass based on young healthy adult. A Z-score is used for diagnosis in premenopausal women, and for men under the age of 50. FINDINGS: RESULT LUMBAR SPINE L1 - L4 (L4)BMD: 0.908 g/cm2 T-Score: - 2.2 Z-Score: - 0.6 Change from prior in 2012: Increase 3.9%. RESULTS FEMUR Left femoral neck BMD: 0.741 g/cm2 T-Score: - 2.1 Z-Score: - 0.3 Change from prior in 2019: Decrease 3.3%. Right femoral neck BMD: 0.657 g/cm2 T-Score: - 2.7 Z-Score: - 0.9 Change from prior in 2019: Decrease 17.3%. Left hip BMD: 0.808 g/cm2 T-Score: - 1.6 Z-Score: + 0.1 Change from prior in 2019: Decrease 4.4%. Right hip BMD: 0.753 g/cm2 T-Score: - 2.0 Z-Score: - 0.4 Change from prior in 2019: Decrease 10.8%. RESULT FOREARM Left Forearm distal radius BMD: 0.458 g/cm2 T-Score: - 3.6 Z-Score: - 1.3 Change from prior: None WHO criteria: Normal: T-score at or above -1 SD Osteopenia: T-score between -1.1 and -2.4 SD Osteoporosis: T-score at or below -2.5 SD us Danielle Taylor MD DEXA Final Resul t * SCAN-CT INTERPRETATION (06/05/2025 12:00 AM CDT) Only the most recent of3 resultswithin the time period is included. Anatomical Region Laterality Modality Other us Scanner OTHER Final Result * CT CHEST PE STUDY (06/01/2025 1:00 [...] HEMATOLOGY Final Resul t Performing Organization Address City/[facility]/ZIP Co de Phone Number [facility] [address] [address], [place] [phone] * CREATININE,ISTAT (06/01/2025 12:16 PM CDT) POCT,CREATININ E, ISTAT 1.0 0.6 - 1.3 mg/dL 06/01/2025 12:28 PM CDT [facility] Blood BLOOD SPECIMEN / Unknown [facility] / Unknown 06/01/2025 12:16 PM CDT 06/01/2025 12:16 PM CDT Danielle Taylor MD CHEMISTRY Final Resul t Performing Organization Address [facility] Co de Phone Number [facility] [address] [address], [place] [phone] [address], [place] [phone] * MAGNESIUM (06/01/2025 12:16 PM CDT) Pathologist [facility] MAGNESIUM 2.3 1.5 - 2.5 mg/dL 06/02/2025 4:05 AM CDT [facility] Blood BLOOD SPECIMEN / Unknown [facility] / Unknown 06/01/2025 12:16 PM CDT 06/01/2025 12:16 PM CDT Danielle Taylor MD CHEMISTRY Final Resul t Performing Organization Address City/[facility]/ZIP Co de Phone Number [facility] [address] [address], [place] [phone] * VITAMIN B12 (06/01/2025 12:16 PM CDT) Pathologist [facility] VITAMIN B12 552 200 - 1100 pg/mL 06/02/2025 3:44 AM CDT [facility] Blood BLOOD SPECIMEN / Unknown [facility] / Unknown 06/01/2025 12:16 PM CDT 06/01/2025 12:16 PM CDT us Danielle Taylor MD CHEMISTRY Final Resul t [facility] [address] [place] [address], * (ABNORMAL) COMP METABOLIC PANEL (06/01/2025 12:16 PM CDT) SODIUM 134(L) 135 - 146 mmol/L 06/02/2025 4:05 AM CDT [facility] POTASSIUM 4.8 3.5 - 5.3 mmol/L 06/02/2025 4:05 AM CDT [facility] CHLORIDE 97(L) 98 - 110 mmol/L 06/02/2025 4:05 AM CDT [facility] CARBON DIOXIDE 28 20 - 32 mmol/L 06/02/2025 4:05 AM CDT [facility] GLUCOSE 100(H) 65 - 99 mg/dL 06/02/2025 4:05 AM CDT [facility] Comment: Fasting reference interval For someone without known diabetes, a glucose value between 100 and 125 mg/dL is consistent with prediabetes and should be confirmed with a follow-up test. CALCIUM 9.8 8.6 - 10.4 mg/dL 06/02/2025 4:05 AM CDT [facility] CREATININE 0.99 0.60 - 1.00 mg/dL 06/02/2025 4:05 AM CDT [facility] BUN/CREATININE RATIO SEE NOTE: 6 - 22 (calc) 06/02/2025 4:05 AM CDT [facility] Comment: Not Reported: BUN and Creatinine are within reference range. EGFR 59(L) > OR = 60 mL/min/1. 73m2 06/02/2025 4:05 AM CDT [facility] ALBUMIN 4.5 3.6 - 5.1 g/dL 06/02/2025 4:05 AM CDT [facility] PROTEIN, TOTAL 7.8 6.1 - 8.1 g/dL 06/02/2025 4:05 AM CDT [facility] BILIRUBIN, TOTAL 0.6 0.2 - 1.2 [...] MD CHEMISTRY Final Resul t [facility] [place] [address], [place] [phone] * SCAN-RADIOLOGY REPORT (05/31/2025 12:00 AM CDT) Anatomical Region Laterality Modality Other us Scanner OTHER Final Result * LIPID PANEL W REFLEX MEASURED LDL (09/17/2023 10:54 AM COMMERCIAL SALES MANAGER) CHOLESTEROL,TOTAL 174 100 - 199 mg/dL 09/17/2023 6:19 PM COMMERCIAL SALES MANAGER [facility] Comment: Cholesterol, Total Reference Ranges Desirable <200 mg/dL Borderline 200-239 mg/dL High >=240 mg/dL TRIGLYCERIDES 48 <150 mg/dL 09/17/2023 6:19 PM COMMERCIAL SALES MANAGER [facility] HDL CHOLESTEROL 85 >40 mg/dL 6:19 PM COMMERCIAL SALES MANAGER [facility] NON-HDL CHOLESTEROL 89 <145 mg/dl 09/17/2023 6:19 PM COMMERCIAL SALES MANAGER [facility] CHOL/HDL RATIO 2.05 <4.50 09/17/2023 6:19 PM COMMERCIAL SALES MANAGER [facility] LDL CHOLESTEROL 79 <=130 mg/dL 09/17/2023 6:19 PM COMMERCIAL SALES MANAGER [facility] VLDL CHOLESTEROL 10 <=30 mg/dL 09/17/2023 6:19 PM COMMERCIAL SALES MANAGER [facility] PROVIDER ORDERED STATUS RANDOM 09/17/2023 6:19 PM COMMERCIAL SALES MANAGER [facility] Blood BLOOD SPECIMEN / Unknown Venipuncture / Unknown 09/17/2023 10:54 AM COMMERCIAL SALES MANAGER 09/17/2023 10:56 AM COMMERCIAL SALES MANAGER us Danielle Taylor MD CHEMISTRY Final Resul t [facility] [address] [place] [address], [place] * ANTI HCV (06/12/2023 4:06 PM CDT) HEPATITIS C ANTIBODY Non-Reacti ve Non-React darci 06/15/2023 11:[address] [facility] LABORATORY Comment:Please note, per www [...] Galvez MD SEND OUTS Final Res ult [facility] LABORATORY SENDOUT INTERNAL ZIP [address] [place] [id number] * COLONOSCOPY (08/13/2022 7:50 AM COMMERCIAL SALES MANAGER) 08/13/2022 7:50 AM COMMERCIAL SALES MANAGER Narrative Transcriptions Tonny Wolfe MD - 08/13/2022 [...] candidate for conscious sedation. The endoscope [id number] was passed through the anus andadvanced to [...] 7:50 AM Procedure Code(s): --- Professional --- 63666, Colonoscopy, flexible; with removalof tumor(s), polyp(s), or other lesion(s) bysnare technique Diagnosis Code(s): --- Professional --- Z86.010, Personal history of colonicpolyps D12.3, Benign neoplasm of transverse colon (hepatic flexure or splenic flexure) D12.5, Benign neoplasm of sigmoid colon K57.30, Diverticulosis of large intestine without perforation or abscess withoutbleeding CPT copyright 1 [employer]. All rights reserved. The codes documented in this report are preliminary and upon geometry tutor reviewmay be revised to meet current compliance requirements. Scope In: 8:09:22 AM Scope Withdrawal Time 0 hours 15 minutes 5 seconds Scope Out: 8:30:54 AM Tonny Wolfe MD PROCEDURE ORD Final Res ult from Last 3 Months or Most Recently Relevant to Health Maintenance Insurance MEDICARE PART A HB ONLY MEDICARE PART B HB ONLY MEDICARE PB ONLY [place] [employer] Care Teams Stroke Belt Sander Operator Relationship Specialty Start Date End Date Danielle Taylor MD [address] [place] [address] PCP - General Family Practice 04/27/17 [facility] Hematology and Oncology 08/30/12 [place] [address] [place] [address] Endocrinology Endocrinology 07/27/25
--- OUTSIDE RECORDS SUMMARY | 2025-08-28 16:52 | XMS_ITS | Data Portability ---
Author Organization [place] - [facility], auto[employer] - [facility] Address [address] [place] [address] Assessment Encounter Date Assessment Date Assessment LastModified [...] our office. ecram Not available 08/18/2025 14:10:22 08/21/2025 08/21/2025 ASSESSMENT: Patient is a good [...] our office. ecram Not available 08/21/2025 12:49:59 08/24/2025 08/24/2025 ASSESSMENT: Patient is a good [...] spine, 2 or 3 view 2024 025 [email or web address] 2 Not available 5 15:08:07 MRI, lumbar spine, w/o contrast 2024 025 [email or web address] 2 Not available 5 15:08:07 MRI, lumbar spine, w/o contrast 2024 025 [email or web address] 2 Not available 5 15:08:07 XR, lumbosacr al spine, 2 or 3 view 2024 025 srischette Not available 5 15:41:20 MRI, lumbar spine, w/o contrast 11/17/ 2025 11/17/2 025 srischette Not available 15:41:20 MRI, lumbar spine, w/o contrast 2024 025 srischette Not available 15:41:20 XR, lumbosacr al spine, 2 or 3 view 2024 025 [email or web address] 2 Not available 15:03:30 MRI, lumbar spine, w/o contrast 2024 025 [email or web address] 2 Not available 15:03:30 MRI, lumbar spine, w/o contrast 2024 025 [email or web address] 2 Not available 15:03:30 Medication Orders None recorded. Patient TargetsNo targets recorded. Patient InstructionsNo instructions recorded. Reason for Referral None Reported. Problems Name Problem SNOMED Code Status Onset Date Resolution Date Notes Provider Name and Address Organization Details Recorded Time Lumbar radiculopat hy 871146695 Active 2024 Bashir Leonard DC [address] [facility], [place], [address], [facility] 14:10:15 Disorder of lumbar spine 539686342 Active 2024 Bashir Leonard DC [address] [facility], [place], [address], [facility] 14:10:15 Lumbar segmental dysfunction 114520308 Active 2024 Bashir Leonard DC [address] [facility], [place], [address], [facility] 14:10:15 Lesion of lumbar spine 326914029 Active 2024 Bashir Leonard DC [address] [facility], [place], [address], [facility] 14:10:15 Low back strain 673035382 Active 2024 Bashir Leonard DC [address] [facility], [place], [address], [facility] 14:10:15 Somatic dysfunction of sacral spine 566294502 Active 2024 Bashir Leonard DC [address] [facility], [place], [address], [facility] 14:10:15 Spasm of muscle of lower back 6879762466361 9105 Active 2024 Bashir Leonard DC [address] [facility], [place], [address], [facility] 14:10:15 Neck pain 15272126 Active 2024 Bashir Ricky Leonard DC [address] [facility], [place], [address], [facility] 14:10:25 Thoracic segmental dysfunction 558231902 Active 2024 Bashir Leonard DC [address] [facility], [place], [address], [facility] 14:10:25 Cervical segmental dysfunction 009987799 Active 2024 Bashir Ricky Leonard DC [address] [facility], [place], [address], [facility] 14:10:25 Problem Notes None recorded. Procedures Surgical History Date Name Laterality Status Provider Name and Address Organization Details Recorded Time 5 53074: Spinal manipulation , 3 to 4 regions completed Vishnu Hernandez DC [address] [facility], [place], [address], [facility] 08/24/2025 19:22:29 5 [address]: Spinal manipulation , 3 to 4 regions completed Bashir Leonard DC [address] [facility], [place], [address], [facility] 08/21/2025 12:49:59 5 [address]: Spinal manipulation , 3 to 4 regions completed Bashir Leonard DC [address] [facility], [place], [address], [facility] 08/18/2025 14:13:26 Imaging Results None recorded. Procedure Notes None recorded. Medical Equipment None Reported. Allergies Allergen ID Allergen Name Allergen Category Reaction Reaction Severity Criticality Documentation Date Start Date Code Code System Note Provider Name and Address Organization Details Recorded Time 42426 levofloxa dimas medicatio n Not available Not available Not available 08/18/20252024 69993 RxNorm unrec ogniz ed react ion (text : Eryth ayaz, code: 51837 1003) (from exter nal sour e) Not Available [employer] External Data Service - prod 12:11:32 Medications [...] ICD10 Code Diagnosis IMO Codes Diagnosis Note [id number] Bashir Leonard DC [facility] [address] [facility] [place] [address] 08/18/2025 12:09:29 08/18/2025 15:03:30 Lumbar radiculopathy 362526282 M54.16 Spasm of m uscle of lower back 4300330693 3781645 M62.830 Lumbar seg mental dysfunction 240552640 M99.03 Somatic dy sfunction of sacral spine 250426020 M99.04 Disorder o f lumbar spine 688703747 M53.9 Lesion of lumbar spine 841858094 M99.9 Low back strain 03355008 1 S39.012A S39.012D Cervical s egmental dysfunction 773758255 M99.01 Neck pain 23383458 M54.2 Thoracic s egmental dysfunction 234490994 M99.02 [id number] Bashir Leonard DC [facility] [address] [place] [address] 08/21/2025 09:37:20 08/21/2025 15:41:20 Lumbar radiculopathy 759576215 M54.16 Spasm of m uscle of lower back 0038056758 9169393 M62.830 Lumbar seg mental dysfunction 468296758 M99.03 Somatic dy sfunction of sacral spine 021774591 M99.04 Disorder o f lumbar spine 218623900 M53.9 Lesion of lumbar spine 305166427 M99.9 Low back strain 74997932 1 S39.012A S39.012D Cervical s egmental dysfunction 828217676 M99.01 Neck pain 04142777 M54.2 Thoracic s egmental dysfunction 876606915 M99.02 [id number] Vishnu Hernandez DC [facility] [address] [facility] [place] [address] 08/24/2025 16:51:41 08/25/2025 15:08:07 Lumbar radiculopathy 122933928 M54.16 Spasm of m uscle of lower back 2458719727 4862791 M62.830 Lumbar seg mental dysfunction 889640783 M99.03 Somatic dy sfunction of sacral spine 675836006 M99.04 Disorder o f lumbar spine 400018347 M53.9 Lesion of lumbar spine 133814454 M99.9 Low back strain 76199077 1 S39.012A S39.012D Cervical s egmental dysfunction 353591570 M99.01 Neck pain 75599331 M54.2 Thoracic s egmental dysfunction 466829459 M99.02 Health Concerns Section Related Observation LastModified by Organization Detai ls LastModified Time None Recorded Concern Status LastModified by Organization Details LastModified Time None Recorded Advance Directives Directive None Recorded Payers Insurance Date Sequence Insurance Name Policy Number Policy Islas Covered Member ID Islas Member ID Guarantor Name 08/28/2025 1 [place]: [employer] Heather Patton [id number] 1 Heather Pooja 08/24/2025 2 [place] [id number] Heather Patton [id number] Heather Jocelynnjohn Notes Date Note Type Note [...] stand. For alleviating factors, patient reportsrest. Bashir Leonard, TIMI [address] [facility], [place], [address], [facility] 08/18/2025 14:15:38 08/21/2025 text/html HPI - Cervical SpineReported by PatientHPIFor location, patient reportsbilateral. For quality, patient reportsaching. For severity, patient reportsmoderate. For duration, patient reports2 weeks. For timing, patient reportsgradual. For alleviating factors, patient reportsice. For aggravating factors, patient reportsbendingandtwi sting/turning. For associated symptoms, patient reportsno numbness/tingling. HPI - Lumbar SpineReported by [facility] quality, patient reportsaching. For severity, patient reportsmoderate. For timing, patient reportscannot identify. For duration, patient reportsacute. For context, patient reportsbending,lifti ng, andtwisting. For aggravating factors, patient reportslifting,carry ing,twisting,bending /squatting,pushing/p ulling,exercise, andgoing from sit to stand. For alleviating factors, patient reportsrest. Bashir Leonard DC [address] [facility], [place], [address], [facility] 08/21/2025 12:52:01 08/24/2025 text/html HPI - Cervical SpineReported by PatientHPIFor location, patient reportsbilateral. For quality, patient reportsaching. For severity, patient reportsmoderate. For duration, patient reports2 weeks. For timing, patient reportsgradual. For alleviating factors, patient reportsice. For aggravating factors, patient reportsbendingandtwi sting/turning. For associated symptoms, patient reportsno numbness/tingling. HPI - Lumbar SpineReported by [facility]Federal [facility] quality, patient reportsaching. For severity, patient reportsmoderate. For timing, patient reportscannot identify. For duration, patient reportsacute. For context, patient reportsbending,lifti ng, andtwisting. For aggravating factors, patient reportslifting,carry ing,twisting,bending /squatting,pushing/p ulling,exercise, andgoing from sit to stand. For alleviating factors, patient reportsrest. Vishnu Hernandez DC [address] [facility], [place], [address], [facility] - [facility] 08/24/2025 19:23:10 OBGyn Episode No OBEpisode recorded.
--- NOTE | 2025-08-28 17:15 | ED_ITS ---
HPI - General Adult General Chief complaint: Shortness of Breath/Dyspnea Stated complaint: Hard time breathing Time Seen by Provider: 08/28/25 17:08 Source: patient Mode of arrival: ambulatory Limitations: no limitations History of Present Illness HPI narrative: 75-year-old female presenting today with shortness of breath. Patient states that she has been slowly been getting more short of breath as the day has gone on. However, she states that she was cleaning out her vacuum auto cleaner approximately 3 hours ago when all of a sudden she became acutely worse after inhaling the dust in the vacuum. Patient denies any history of COPD or asthma but states that she does have a an inhaler at home that she has used 10 times today without relief. She states that she has allergies and generally uses her inhaler sparingly as needed. She denies any recent illness, cough, fevers or chills. She denies any recent traveling. No new medications. Patient presents to the emergency department in acute hypoxic respiratory failure with a respiratory rate of 32 and oxygen saturation of 85% on room air. According to nursing staff patient was unable to complete a sentence or say more than a couple words without needing to catch her breath. When I see her she has already been treated with a DuoNeb and is doing significantly better. Related Data Home Medications ?Medication ?Instructions ?Recorded ?Confirmed malaria pills PO 05/04/24 05/10/25 Previous Rx's ?Medication ?Instructions ?Recorded azelastine 0.05 % eye drops 1 drp ophthalmic (eye) BID #6 mL 05/04/24 lidocaine 5 % topical patch 1 patch topical DAILY #15 ea 05/31/25 (Lidoderm) apixaban 5 mg (74 tabs) tablets in See Rx Instructions PO .COMPLEX 08/28/25 a dose pack (Eliquis DVT-PE Treat #74 ea 30D Start) Allergies Allergy/AdvReac Type Severity Reaction Status Date / Time giovana flavor Allergy Severe Swelling Verified 08/28/25 17:03 of Lip/Tongue/Throat levofloxacin (From Levaquin) Allergy Verified 08/28/25 17:03 Review of Systems Status of ROS: Reports: 10 or more systems reviewed and unremarkable except as noted in History and below [facility] Medical History Fracture of left wrist ?S62.102A - Fracture of unspecified carpal bone, left wrist, initial enco unter for closed fracture (ICD-10) Cancer of left breast (05/2008) ?C50.912 - Malignant neoplasm of unspecified site of left female breast (ICD- 10) Surgical History Previous section ?Z98.891 - History of uterine scar from previous surgery (ICD-10) History of appendectomy ?Z90.49 - Acquired absence of other specified parts of digestive tract (ICD- 10) History of lumpectomy of left breast (06/03/08) ?Z98.890 - Other specified postprocedural states (ICD-10) History of reduction of closed fracture (02/03/19) ?Z87.81 - Personal history of (healed) traumatic fracture (ICD-10) Family History Maternal Grandmother Colon cancer Social History Smoking Status: Never smoker Do you use any of these nicotine containing products: None Second hand tobacco smoke exposure: No How often do you have a drink containing alcohol: monthly or less AUDIT-C Alcohol total score: 1 Non-prescribed substance use: denies use service: No Exam Narrative: Exam Narrative: Well-nourished well-developed patient in no acute distress. Alert and oriented. Answers questions appropriately. Mood and affect are appropriate. Thoughts are goal oriented and rational. No tangential or magical thinking noted. Patient speaks in full sentences without needing to catch her breath. Patient is now with respiratory rate of 18, saturating 96% on room air. HEENT: Normocephalic atraumatic. Pupils are equally round reactive to light. Extraocular muscles are intact. Conjunctivae are moist without any icterus noted. Moist mucous membranes. Posterior pharynx is normal. N Cardiovascular: Heart is regular rate and rhythm S1 and S2 are present without any murmurs. Lungs: Clear to auscultation bilaterally no wheezes rhonchi or rales are appreciated. Patient takes deep breaths without any discomfort. Extremities: Bilateral lower extremities show trace edema bilaterally. Skin: Well perfused without any obvious rashes. Const: Vital Signs, click to edit/add: Vital Signs - 24 hr 11/24/25 17:01 08/28/25 17:11 08/28/25 17:12 Temperature 97 F L Pulse Rate 96 98 Pulse Rate [Right] 97 Respiratory Rate 32 H 16 Blood Pressure 135/81 Blood Pressure [Ri ght Upper Arm] 175/102 H Pulse Oximetry 85 L 97 95 Oxygen Delivery Me thod Room Air 08/28/25 17:15 08/28/25 17:30 08/28/25 17:45 Temperature Pulse Rate 97 97 98 Pulse Rate [Right] Respiratory Rate 20 Blood Pressure Blood Pressure [Ri ght Upper Arm] Pulse Oximetry 95 94 93 Oxygen Delivery Me thod 08/28/25 17:52 08/28/25 18:00 08/28/25 18:15 Temperature Pulse Rate 98 96 94 Pulse Rate [Right] Respiratory Rate 16 Blood Pressure 120/72 Blood Pressure [Ri ght Upper Arm] Pulse Oximetry 97 94 95 Oxygen Delivery Me thod 08/28/25 19:35 Temperature Pulse Rate 90 Pulse Rate [Right] Respiratory Rate 16 Blood Pressure 135/83 Blood Pressure [Ri ght Upper Arm] Pulse Oximetry 98 Oxygen Delivery Me thod Course Course ED Course: Differential diagnosis includes asthma exacerbation, acute coronary syndrome, PE, pneumonia, allergic reaction. EKG, read by me, shows normal sinus rhythm with a pulse of 79. CBC was unremarkable. Chemistries unremarkable. Normal magnesium. Triple swab negative. D-dimer however was elevated at 1.47. Discussed results with the patient and using mutual decision making decided to go ahead and proceed with a chest CT PE protocol vs an xray. CT PE protocol shows a PE of the right lower lobe. No evidence of right heart strain. Vital Signs Vital signs: Initial Vital Signs Temperature 97 F L 08/28/25 17:01 Temperature Source Temporal Artery Scan 08/28/25 17:01 Pulse Rate 97 08/28/25 17:01 Pulse Rhythm Regular 08/28/25 17:01 Respiratory Rate 32 H 08/28/25 17:01 Blood Pressure 175/102 H 08/28/25 17:01 Blood Pressure Mean 126 H 08/28/25 17:01 Blood Pressure Position Sitting 08/28/25 17:01 Pulse Oximetry 85 L 08/28/25 17:01 Oxygen Delivery Method Room Air 08/28/25 17:01 Vital Signs Temperature 97 F L 08/28/25 17:01 Pulse Rate 97 08/28/25 17:01 Respiratory Rate 32 H 08/28/25 17:01 Blood Pressure 175/102 H 08/28/25 17:01 Pulse Oximetry 85 L 08/28/25 17:01 Oxygen Delivery Method Room Air 08/28/25 17:01 Temperature 97 F L 08/28/25 17:01 Pulse Rate 90 08/28/25 19:35 Respiratory Rate 16 08/28/25 19:35 Blood Pressure 135/83 08/28/25 19:35 Pulse Oximetry 98 08/28/25 19:35 Oxygen Delivery Method Room Air 08/28/25 17:01 Medications Administered Medications: Discontinued Medications Generic Name Dose Route Start Last Admin Trade Name Freq PRN Reason Stop Dose Admin Albuterol/Ipratropium 1 neb 08/28/25 17:20 08/28/25 17:25 Iprat-Albut 0.5-2.5 Mg/3 Ml Neb IH 08/28/25 17:21 1 neb ONCE ONE Administration Prednisone 50 mg 08/28/25 17:20 08/28/25 17:51 Prednisone 10 Mg Tablet PO 08/28/25 17:21 50 mg ONCE ONE Administration Medical Decision Making MDM Narrative Medical decision making narrative: 75-year-old female presenting with hypoxia, resolved. Workup positive for a pulmonary embolism. Will start the patient on Eliquis. Received her 1st dose while she was here. Lab Data Lab results reviewed: Yes I reviewed the patient's lab results Labs: Lab Results 08/28/25 08/28/25 Range/Units 17:20 17:35 WBC 5.08 (4.50-11.00) K/uL RBC 4.06 (4.00-5.20) m/uL Hgb 12.8 (12.0-16.0) gm/dL Hct 40.2 (33.0-51.0) % MCV 99 (80-100) fL MCH 32 (26-34) pg MCHC 32 (32-36) gm/dL RDW Coeff of Radha 12.3 (11.5-15.5) % Plt Count 245 (140-440) K/uL Neut % (Auto) 59.9 (42.0-72.0) % Lymph % (Auto) 24.4 (20-44) % Mayes % (Auto) 10.4 (0.0-11.0) % Eos % (Auto) 4.3 (0.0-7.0) % Baso % (Auto) 0.8 (0.0-3.0) % Neut # (Auto) 3.04 (1.7-7.0) K/uL Lymph # (Auto) 1.24 (0.90-2.90) K/uL Mayes # (Auto) 0.50 (0.00-0.90) K/UL Eos # (Auto) 0.22 (0.00-0.50) K/uL Baso # (Auto) 0.04 (0.00-0.30) K/uL Abs Immat Gran (auto) 0.01 (0.00-0.30) K/uL Imm/Tot Granulo (auto) 0.2 % D-Dimer Quant (PE/DVT) 1.47 H (0.00-0.50) ug/ml Sodium 135 (135-149) mmol/L Potassium 4.2 (3.6-5.1) mmol/L Chloride 94 L (96-114) mmol/L Carbon Dioxide 31 (20-32) mmol/L Anion Gap 10 (7-15) mEq/L BUN 20 (7-30) mg/dL Creatinine 0.8 (0.5-1.5) mg/dL Estimated Creat Clear 40.21 Estimated GFR 77 ml/min Glucose 134 H (60-115) mg/dL Calcium 9.0 (8.4-10.6) mg/dL Magnesium 2.2 (1.5-2.6) mg/dL SARS-CoV-2 (PCR) Negative SARS-CoV-2 (Negative) Influenza Type A (PCR) Negative PCR FLU A (Negative) Influenza Type B (PCR) Negative PCR FLU B (Negative) RSV (PCR) Negative PCR RSV (Negative) Imaging Data CT scan - chest: Attestation: I have reviewed the pertinent imaging results. Radiologist's impression: INDICATION: Pulmonary embolism suspected, high probability. TECHNIQUE: CT chest PE was acquired with 97 cc Isovue 370 IV contrast. COMPARISON: None. FINDINGS: Heart and vasculature: Pulmonary embolus seen within the right lower lobe segmental branch. Heart size is normal. Thoracic aorta and pulmonary artery are normal in caliber. Lungs and pleura: No focal consolidation. No pleural effusions, pleural thickening, or pneumothorax. Lymph nodes/mediastinum: No mediastinal, hilar, or axillary adenopathy. Chest wall: Calcification seen in the left breast. Correlate with prior mammography. Upper abdomen: No acute findings. Bones: No acute findings. Redemonstration of compression deformity of the T6, T8 and T12 vertebral bodies IMPRESSION: Pulmonary embolus within the right lower lobe segmental branch. Chronic appearing compression deformities of the thoracic vertebral bodies as described above. ECG Data Attestation: I personally reviewed and interpreted this ECG as follows: Discharge Plan Discharge Clinical Impression: Pulmonary embolism Patient Disposition: Home, Self-Care Condition: Stable Additional Instructions: Start medications as prescribed. Follow-up with your primary care provider in approximately 1 week. Return to the ER if you develop shortness of breath, chest pain or difficulty breathing. Prescriptions: New Eliquis DVT-PE Treat 30D Start 5 mg (74 tabs) tablets,dose pack See Rx Instructions .ROUTE .COMPLEX Qty: 74 0RF Rx Instructions: orally per package directions No Action malaria pills PO azelastine 0.05 % drops 1 drp ophthalmic (eye) BID Qty: 6 0RF lidocaine [Lidoderm] 5 % adhesive patch,medicated 1 patch topical DAILY Qty: 15 0RF Rx Instructions: leave on most painful area for up to 12 hrs Follow Up/Referrals: Danielle Taylor MD [Primary Care Provider, Family Practice] Stand Alone Forms: MyHealth Info Instructions
[2025-08-28] MEDS: IPRAT-ALBUT 0.5-2.5 MG/3 ML NEB 1 NEB IH (17:25)
[2025-08-28 17:41] LABS: Hematocrit* 40.2 % (33.0-51.0); Hemoglobin* 12.8 gm/dL (12.0-16.0); Immature Granulocytes Abs Auto 0.01 K/uL (0.00-0.30); Immature Granulocytes Pct Auto 0.2 %; Lymphocytes Absolute Auto 1.24 K/uL (0.90-2.90); Mean Corpuscular HGB Conc 32 gm/dL (32-36); Mean Corpuscular Hemoglobin 32 pg (26-34); Mean Corpuscular Volume 99 fL (80-100); RDW Coefficient of Variation % 12.3 % (11.5-15.5); Red Blood Count* 4.06 m/uL (4.00-5.20); White Blood Count* 5.08 K/uL (4.50-11.00)
[2025-08-28 17:43] LABS: Slide Review Reflex No
[2025-08-28 17:53] LABS: Chloride* 94 mmol/L (96-114); Potassium* 4.2 mmol/L (3.6-5.1); Sodium* 135 mmol/L (135-149)
[2025-08-28 17:56] LABS: Anion Gap 10 mEq/L (7-15); Blood Urea Nitrogen* 20 mg/dL (7-30); Calcium* 9.0 mg/dL (8.4-10.6); Carbon Dioxide* 31 mmol/L (20-32); Creatinine* 0.8 mg/dL (0.5-1.5); Est. Creatinine Clearance* 40.21; Estimated Glomerular Filt Rate 77 ml/min; Glucose* 134 mg/dL (60-115)
[2025-08-28 17:58] LABS: D Dimer Quantitative* 1.47 ug/ml (0.00-0.50)
--- NOTE | 2025-08-28 18:09 | CRLHL7_ITS ---
For Patients: As a result of the Century Cures Act, medical imaging exams and procedure reports are released immediately into your electronic medical record. You may view this report before your referring provider. If you have questions, please contact your health care provider. INDICATION: Pulmonary embolism suspected, high probability. TECHNIQUE: CT chest PE was acquired with 97 cc Isovue 370 IV contrast. COMPARISON: None. FINDINGS: Heart and vasculature: Pulmonary embolus seen within the right lower lobe segmental branch. Heart size is normal. Thoracic aorta and pulmonary artery are normal in caliber. Lungs and pleura: No focal consolidation. No pleural effusions, pleural thickening, or pneumothorax. Lymph nodes/mediastinum: No mediastinal, hilar, or axillary adenopathy. Chest wall: Calcification seen in the left breast. Correlate with prior mammography. Upper abdomen: No acute findings. Bones: No acute findings. Redemonstration of compression deformity of the T6, T8 and T12 vertebral bodies IMPRESSION: Pulmonary embolus within the right lower lobe segmental branch. Chronic appearing compression deformities of the thoracic vertebral bodies as described above. This finding was communicated to Provider Vivian Pineda at 7:50 PM on 08/28/[address] Carlin Please note that all CT scans at this facility use dose modulation, iterative reconstruction, and/or weight-based dosing when appropriate to reduce radiation dose to as low as reasonably achievable. Dictated by Duane Carlin MD @ 08/28/2025 8:02:00 PM (Electronically Signed)
[2025-08-28 18:16] LABS: PCR FLU A Negative PCR FLU A (Negative); PCR FLU B Negative PCR FLU B (Negative); PCR RSV Negative PCR RSV (Negative); SARS PCR* Negative SARS-CoV-2 (Negative)
[2025-08-28] MEDS: APIXABAN 5 MG TABLET 10 MG PO (20:27)
== END 2025-08-28 20:38 | disposition home or self-care (01) ==
PROVIDERS: Emergency Provider Family Medicine; PCP Family Medicine
DX: I26.99 Other pulmonary embolism without acute cor pulmonale (principal)
CPT/HCPCS: 36415; 71275; 80048; 83735; 85025; 85379; 87631; 93005; 94761; 99284; 99285; A9270; J7512; Q9967

== ENCOUNTER 2025-09-02 17:44 | Emergency (ER) | payer MEDICARE, BC, SELFPAY ==
--- OUTSIDE RECORDS SUMMARY | 2025-09-02 17:46 | XMS_ITS | Data Portability ---
Author Organization [place] - [facility], autoContract - [facility] Address [address] [facility] [place] [address] Assessment Encounter Date Assessment Date Assessment LastModified [...] Organization Details Recorded Time Lumbar radiculopat hy 501954193 Active 2024 Bashir Leonard DC [address], [place], [address], [facility] 14:10:15 Disorder of lumbar spine 054410668 Active 2024 Bashir Leonard DC [address], [place], [address], [facility] 14:10:15 Lumbar segmental dysfunction 349107126 Active 2024 Bashir Leonard DC [address], [place], [address], [facility] 14:10:15 Lesion of lumbar spine 552927378 Active 2024 Bashir Leonard DC [address], [place], [address], [facility] 14:10:15 Low back strain 426707677 Active 2024 Bashir Leonard DC [address], [place], [address], [facility] 14:10:15 Somatic dysfunction of sacral spine 963876869 Active 2024 Bashir Leonard DC [address], [place], [address], [facility] 14:10:15 Spasm of muscle of lower back 1828727254094 9105 Active 2024 Bashir Leonard DC [address], [place], [address], [facility] 14:10:15 Neck pain 66947748 Active 2024 Bashir Ricky Leonard DC [address], [place], [address], [facility] 14:10:25 Thoracic segmental dysfunction 775969498 Active 2024 Bashir Leonard DC [address], [place], [address], [facility] 14:10:25 Cervical segmental dysfunction 146469922 Active 2024 Bashir Ricky Leonard DC [address], [place], [address], [facility] 14:10:25 Problem Notes None recorded. Procedures Surgical History Date Name Laterality Status Provider Name and Address Organization Details Recorded Time 5 48709: Spinal manipulation , 3 to 4 regions completed Vishnu Hernandez DC [address], [place], [address], [facility] 08/24/2025 19:22:29 5 [address]: Spinal manipulation , 3 to 4 regions completed Bashir Leonard DC [address], [place], [address], [facility] 08/21/2025 12:49:59 5 47652: Spinal manipulation , 3 to 4 regions completed Bashir Leonard DC [address], [place], [address], [facility] 08/18/2025 14:13:26 Imaging Results None recorded. Procedure Notes None recorded. Medical Equipment None Reported. Allergies Allergen ID Allergen Name Allergen Category Reaction Reaction Severity Criticality Documentation Date Start Date Code Code System Note Provider Name and Address Organization Details Recorded Time 37568 levofloxa dimas medicatio n Not available Not available Not available 08/18/20252024 06468 RxNorm unrec ogniz ed react ion (text : Eryth ayaz, code: 78585 1003) (from exter nal sour e) Not Available [employer] External Data Service - prod 12:11:32 Medications [...] ICD10 Code Diagnosis IMO Codes Diagnosis Note [id number] Bashir Leonard DC [facility] [address] [facility] [place] [address] 08/18/2025 12:09:29 08/18/2025 15:03:30 Lumbar radiculopathy 840771438 M54.16 Spasm of m uscle of lower back 4500732011 1505382 M62.830 Lumbar seg mental dysfunction 232885106 M99.03 Somatic dy sfunction of sacral spine 327941276 M99.04 Disorder o f lumbar spine 188384602 M53.9 Lesion of lumbar spine 435199092 M99.9 Low back strain 84614865 1 S39.012A S39.012D Cervical s egmental dysfunction 668924475 M99.01 Neck pain 23011613 M54.2 Thoracic s egmental dysfunction 691348276 M99.02 [id number] Bashir Leonard DC [facility] [address] [place] [address] 08/21/2025 09:37:20 08/21/2025 15:41:20 Lumbar radiculopathy 423697379 M54.16 Spasm of m uscle of lower back 2712093933 2871776 M62.830 Lumbar seg mental dysfunction 418322251 M99.03 Somatic dy sfunction of sacral spine 266676038 M99.04 Disorder o f lumbar spine 461343754 M53.9 Lesion of lumbar spine 372481565 M99.9 Low back strain 09385465 1 S39.012A S39.012D Cervical s egmental dysfunction 355588841 M99.01 Neck pain 73509330 M54.2 Thoracic s egmental dysfunction 133334358 M99.02 [id number] Vishnu Hernandez DC [facility] [address] [facility] [address] 08/24/2025 16:51:41 08/25/2025 15:08:07 Lumbar radiculopathy 192135434 M54.16 Spasm of m uscle of lower back 8783512881 9807204 M62.830 Lumbar seg mental dysfunction 404989733 M99.03 Somatic dy sfunction of sacral spine 815841923 M99.04 Disorder o f lumbar spine 180680833 M53.9 Lesion of lumbar spine 647863588 M99.9 Low back strain 32199106 1 S39.012A S39.012D Cervical s egmental dysfunction 482686513 M99.01 Neck pain 21707923 M54.2 Thoracic s egmental dysfunction 211231610 M99.02 Health Concerns Section Related Observation LastModified by Organization Detai ls LastModified Time None Recorded Concern Status LastModified by Organization Details LastModified Time None Recorded Advance Directives Directive None Recorded Payers Insurance Date Sequence Insurance Name Policy Number Policy Islas Covered Member ID Islas Member ID Guarantor Name 08/28/2025 1 [place] [employer] Heather Patton [id number] 1 Heather Pooja 08/24/2025 2 [place] [id number] Heather Patton [id number] Heather Jocelynnjohn Notes Date Note Type Note [...] factors, patient reportsrest. Bashir Leonard, TIMI [address], [place], [address], [facility] 08/18/2025 14:15:38 08/21/2025 text/html HPI - Cervical SpineReported by PatientHPIFor location, patient reportsbilateral. For quality, patient reportsaching. For severity, patient reportsmoderate. For duration, patient reports2 weeks. For timing, patient reportsgradual. For alleviating factors, patient reportsice. For aggravating factors, patient reportsbendingandtwi sting/turning. For associated symptoms, patient reportsno numbness/tingling. HPI - Lumbar SpineReported by [facility] quality, patient reportsaching. For severity, patient reportsmoderate. For timing, patient reportscannot identify. For duration, patient reportsacute. For context, patient reportsbending,lifti ng, andtwisting. For aggravating factors, patient reportslifting,carry ing,twisting,bending /squatting,pushing/p ulling,exercise, andgoing from sit to stand. For alleviating factors, patient reportsrest. Bashir Leonard DC [address], [place], [address], [facility] 08/21/2025 12:52:01 08/24/2025 text/html HPI - Cervical SpineReported by PatientHPIFor location, patient reportsbilateral. For quality, patient reportsaching. For severity, patient reportsmoderate. For duration, patient reports2 weeks. For timing, patient reportsgradual. For alleviating factors, patient reportsice. For aggravating factors, patient reportsbendingandtwi sting/turning. For associated symptoms, patient reportsno numbness/tingling. HPI - Lumbar SpineReported by [facility] quality, patient reportsaching. For severity, patient reportsmoderate. For timing, patient reportscannot identify. For duration, patient reportsacute. For context, patient reportsbending,lifti ng, andtwisting. For aggravating factors, patient reportslifting,carry ing,twisting,bending /squatting,pushing/p ulling,exercise, andgoing from sit to stand. For alleviating factors, patient reportsrest. Vishnu Hernandez DC [address], [place], [address], [facility] 08/24/2025 19:23:10 OBGyn Episode No OBEpisode recorded.
--- OUTSIDE RECORDS SUMMARY | 2025-09-02 17:46 | XMS_ITS | Clinical Summary ---
Author Organization [facility] Address [address] [place] [address] Care Team Providers Care Hydrometeorologist Name Role Phone Guero Amador Unavailable Unavailable Danielle Taylor MD Primary Care Provider [phone] Julien Cagle MD Unavailable [phone] Allergies Active Allergy Reactions Criticality Noted [...] Date Type Department Care Team Description 08/28/2025 Orders Only [facility] Scanner 1 scan: (1-Ord) [facility], CTA CHEST PE PROTOCOL, 08/28/2025 08/28/2025 Nurse Triage [facility] [address] [place] [address] Danielle Taylor MD Difficulty Breathing 08/25/2025 10:47 AM WAX BALL MOLDER - 08/25/2025 11:59 PM [facility] Hospital Encounter [address] [address] Kavon Berg DO Iverson, Ryan, PT 08/25/2025 Telephone [facility] [address] [place] [address] Danielle Taylor MD Referral (Genetic testing ) 08/25/2025 Travel 08/17/2025 1:47 PM WAX BALL MOLDER - 08/17/2025 11:59 PM [facility] Hospital Encounter [address] [address] Kavon Berg DO Kaufenberg, Rachel, PT Vertigo 08/17/2025 Travel 08/16/2025 Telephone [facility] [address] Kavon Berg DO Follow Up 08/15/2025 Orders Only [facility] [place] [address] Gabriela Lange R.T. (ARRT) 1 scan: (1-Ord) NFLD_EKG_08/14/2025 08/14/2025 11:15 AM WAX BALL MOLDER Orders Only [facility] [place] [address] <No scans attached> 08/14/2025 10:10 AM WAX BALL MOLDER Office Visit [facility] [place] [address] Kavon Berg DO Vertigo (X1 day - woke up this AM with dizziness) 08/14/2025 8:45 AM WAX BALL MOLDER Nurse/Clinic Staff Only [facility] [place] [address] Error-please disregard 08/14/2025 Travel 08/02/2025 Telephone [facility] [place] [facility] [place] [address] Danielle Taylor MD Follow Up 07/27/2025 10:30 AM CDT Office Visit [address] [address] Julien Cagle MD Consult (Menopause, Closed compression fracture of thoracic vertebra) 07/26/2025 Travel 07/24/2025 1:00 PM CDT Ancillary Procedure [facility] [place] [facility] [place] [address] 07/24/2025 Travel 07/21/[address] [address] Juline Cagle MD Questions 07/21/[address] [place] [address] Danielle Taylor MD Questions (To help expedite healing, bone density appt and endocrinology appt) 07/13/2025 12:45 PM CDT Office Visit [facility] [address] [facility] [place] [address] Danielle Taylor MD Hospital F/U ([facility] DOD 06/15/25, TCU DOD 07/07/25) 07/13/2025 Travel 06/20/2025 Telephone [facility] - [address] [place] [address] Oncology, [facility] Questions 06/05/2025 Orders Only [facility] Scanner 1 scan: (1-Ord) [facility], CT LUMBAR SPINE WO CON, 06/05/2025 06/05/2025 Orders Only [facility] Scanner 1 scan: (1-Ord) [facility], THORACIC SPINE WO CON, 06/05/2025 06/05/2025 Orders Only [facility] Scanner 1 scan: (1-Ord) [facility], CT THORACIC SPINE WO CON, 06/05/2025 06/02/2025 Nurse Triage [facility] [address] [place] [address] Danielle Taylor MD Back Pain 06/02/2025 Telephone [facility] [address] [place] [address] Danielle Taylor MD Need Meds (HYDROcodone-acetami nophen/) 06/02/2025 Telephone [facility] [address] [place] [address] Danielle Taylor MD Prior Authorization (lidocaine 5 % topical patch - DENIED) from Last 3 Months Immunizations Immunization Administration Dates Next Due COVID-19 VACCINE SPIKEVAX (M ODERNA 50MCG/0.5ML) 12YO+ PFS 02/11/2024 COVID-19 vaccine (ProtoShare-Bio NTech 30mcg/0.3mL) 12YO+ BIVALENT PF, MDV 07/25/2022 [...] IIV3 (Age 65+ Years) Preserv Free 07/13/2025,07/14/2019,06/02/2017 Eston[place] Encephalitis 12/11/2014,11/13/2014 Pneumococcal Poly,23-Valent (Pneumovax) 06/14/20,11/13/2014 Pneumococcal [...] Grandmother 70's yrs old Cancer-ovarian Sister 2 Mita Cancer Sister 4 Lizz uterine cancer Alcohol/Drug [...] on file Legal Sex Female 5:26 AM WAX BALL MOLDER Gender Identity Not on file Sexual Orientation [...] Comments Blood Pressure 138/92 08/14/2025 9:57 AM WAX BALL MOLDER Pulse 79 08/14/2025 9:57 AM WAX BALL MOLDER Temperature 36.6 C (97.8 F) 06/25/2023 11:19 AM CDT Respiratory Rate 16 06/25/2023 11:19 AM CDT Oxygen Saturation 98% 08/14/2025 9:57 AM WAX BALL MOLDER Inhaled Oxygen Concentration - - Weight 68.5 kg (151 lb) 07/27/2025 10:33 AM CDT Height 156.8 cm (5' 1.73) 06/01/2025 11:03 AM C DT Body Mass Index 27.86 06/01/2025 11:03 AM CDT Plan of Treatment Upcoming Encounters Date Type Department Care Team (Late st Contact Info) Description 09/05/2025 12:50 PM WAX BALL MOLDER Office Visit [facility] [address] [place] [address] Kavon Berg DO [address] [place] [address] 09/07/2025 2:30 PM WAX BALL MOLDER Appointment [facility] [address] [place] [address] Erwin Quezada, PT [address] [place] [address] 10/19/2025 1:30 PM WAX BALL MOLDER Telemedicine [facility] [address] [place] [address] Lara Castillo, MS, [facility] [address] [facility] [address] [place] [address] Health Maintenance Due Date Last Done Comments COVID-19 vaccine series ( season) 2025 02/11/2024, 08/20/2023, 07/25/2022, Additional history exists Colonoscopy through age 75 [...] 07/19/2019, 09/06/2013 Medical Devices Implanted Type Area Ethics Officer Device Identifier Shelf Expiration Date Model / Serial / Lot Port X Port Mri 6fr Venous Cath Kit [id number] - [id number] Implanted:Qty: 1 on 07/04/2008 at [facility] [employer] [id number] / / [id number] Procedures Procedure Name Priority Date/Time Associated Diagnosis Comments SCAN-CT INTERPRETATION 12:00 AM WAX BALL MOLDER HI READING EKG - NO CHARGE, COMP ONLY Routine 08/15/2025 4:21 PM WAX BALL MOLDER Vertigo EKG 12 LEAD Routine 08/15/2025 4:21 PM WAX BALL MOLDER Vertigo US CAROTID DUPLEX BILATERAL TYSHAWN 08/14/2025 12:09 PM WAX BALL MOLDER Bruit of left carotid artery XR DXA BONE DENSITY 2 SITES AXIAL AND 1 SITE PERIPHERAL Routine 07/24/2025 1:40 PM CDT Closed compression fracture of thoracic vertebra with routine healing, subsequent encounter Menopause SCAN-CT INTERPRETATION 5 12:00 AM CDT SCAN-CT INTERPRETATION 5 12:00 AM CDT SCAN-CT INTERPRETATION 5 12:00 AM CDT LIPID PANEL W REFLEX MEASURED LDL Routine 09/17/2023 10:54 AM WAX BALL MOLDER Lipid screening ANTI HCV Routine 06/12/2023 4:06 PM CDT Need for hepatitis C screening test COLONOSCOPY SCREENING Routine 08/13/2022 7:30 AM WAX BALL MOLDER History of colon polyps from Last 3 Months or Most Recently Relevant to Health Maintenance Results * SCAN-CT INTERPRETATION (08/28/2025 12:00 AM WAX BALL MOLDER) Only the most recent of4 resultswithin the time period is included. Anatomical Region Laterality Modality Other us Scanner OTHER Final Result * EKG 12 LEAD (08/15/2025 4:21 PM WAX BALL MOLDER) us Adei Shaqra DO EKG ORD Final Result * HI READING EKG - NO CHARGE, COMP ONLY (08/15/2025 4:21 PM WAX BALL MOLDER) us Adei Shaqra DO PB - PROVIDER READINGS Final Res ult * US CAROTID DUPLEX BILATERAL (08/14/2025 12:09 PM WAX BALL MOLDER) Anatomical Region Laterality Modality CAROTID, NECK Ultrasound 08/14/2025 12:2 6 PM WAX BALL MOLDER Impressions 08/14/2025 12:26 PM WAX BALL MOLDER 1. Minimal bilateral plaque without stenosis. Dictated by Ethan Forde MD @ 08/14/2025 12:26:36 PM (Electronically Signed) Narrative 08/14/2025 12:26 PM WAX BALL MOLDER For Patients: As a result of the [...] to assess therapeutic efficacy. Dawn Carlton PA-C [facility] 07/27/2025 Narrative 07/27/2025 7:26 PM CDT For Patients: Results are automatically released to your [facility] ([employer]) account once available, in compliance with federal regulations. This means that you may see your results before your provider has had a chance to review them. Please allow 2-3 business days for your provider to comment on the results. XR DXA Bone Mineral Density (BMD) EXAM LOCATION: [address] [address] PATIENT NAME: Heather Patton DATE OF : [...] two scanners are made by the same chocolate finisher operator. PROCEDURE: Dual-energy x-ray absorptiometry performed with routine [...] Z-Score: - 0.6 Change from prior in 2013: Increase 3.9%. RESULTS FEMUR Left femoral neck [...] Taylor MD DEXA Final Resul t * LIPID PANEL W REFLEX MEASURED LDL (09/17/2023 10:54 AM WAX BALL MOLDER) [facility] CHOLESTEROL,TOTAL 174 100 - 199 mg/dL 09/17/2023 6:19 PM WAX BALL MOLDER [facility] Comment: Cholesterol, Total Reference Ranges Desirable <200 mg/dL Borderline 200-239 mg/dL High >=240 mg/dL TRIGLYCERIDES 48 <150 mg/dL 09/17/2023 6:19 PM WAX BALL MOLDER [facility] HDL CHOLESTEROL 85 >40 mg/dL 6:19 PM WAX BALL MOLDER [facility] NON-HDL CHOLESTEROL 89 <145 mg/dl 09/17/2023 6:19 PM [facility] CHOL/HDL RATIO 2.05 <4.50 09/17/2023 6:19 PM WAX BALL MOLDER [facility] LDL CHOLESTEROL 79 <=130 mg/dL 09/17/2023 6:19 PM WAX BALL MOLDER [facility] VLDL CHOLESTEROL 10 <=30 mg/dL 09/17/2023 6:19 PM WAX BALL MOLDER [facility] PROVIDER ORDERED STATUS RANDOM 09/17/2023 6:19 PM WAX BALL MOLDER [facility] Blood BLOOD SPECIMEN / Unknown Venipuncture / Unknown 09/17/2023 10:54 AM WAX BALL MOLDER 09/17/2023 10:56 AM WAX BALL MOLDER us Danielle Taylor MD CHEMISTRY Final Resul t [facility] [address] [place] [address], * ANTI HCV (06/12/2023 4:06 PM CDT) HEPATITIS C ANTIBODY Non-Reacti ve Non-React darci 06/15/2023 11:33 PM CDT [facility] Comment:Please note, per www [...] Galvez MD SEND OUTS Final Res ult [facility] SENDOUT INTERNAL ZIP [id number] [place] [address] * COLONOSCOPY (08/13/2022 7:50 AM WAX BALL MOLDER) 08/13/2022 7:50 AM WAX BALL MOLDER Narrative Transcriptions Tonny Wolfe MD - 08/13/2022 [...] adequate candidate for conscious sedation. The endoscope [id number] was passed through the anus andadvanced to [...] 7:50 AM Procedure Code(s): --- Professional --- 27267, Colonoscopy, flexible; with removalof tumor(s), polyp(s), or other lesion(s) bysnare technique Diagnosis Code(s): --- Professional --- Z86.010, Personal history of colonicpolyps D12.3, Benign neoplasm of transverse colon (hepatic flexure or splenic flexure) D12.5, Benign neoplasm of sigmoid colon K57.30, Diverticulosis of large intestine without perforation or abscess withoutbleeding CPT copyright 2020 [employer]. All rights reserved. The codes documented in this report are preliminary and upon candy separator hard reviewmay be revised to meet current compliance requirements. Scope In: 8:09:22 AM Scope Withdrawal Time 0 hours 15 minutes 5 seconds Scope Out: 8:30:54 AM Tonny Wolfe MD PROCEDURE ORD Final Res ult from Last 3 Months or Most Recently Relevant to Health Maintenance Insurance MEDICARE PART A HB ONLY MEDICARE PART B HB ONLY MEDICARE PB ONLY [facility] Care Teams Hydrometeorologist Relationship Specialty Start Date End Date Danielle Taylor MD [address] [place] [address] PCP - General Family Practice 04/27/17 Guero Amador Oncology Hematology and Oncology 08/30/12 [place] [address] [place] [address] Endocrinology Endocrinology 07/27/25
--- OUTSIDE RECORDS SUMMARY | 2025-09-02 17:46 | XMS_ITS | Continuity of Care Document ---
Author Organization [facility] Address [address] [facility] [address] [place] [address] Assessment Encounter Date Assessment Date Assessment LastModified [...] Organization Details Recorded Time Lumbar radiculopat hy 810803956 Active 2024 Bashir Ricky Andersonjesus alberto, [place] [address] [facility], [place], [address], [facility] 14:10:15 Disorder of lumbar spine 726217233 Active 2024 Bashir García Monicajesus alberto, TIMI [address] [facility], [place], [address], [facility] 14:10:15 Lumbar segmental dysfunction 454696070 Active 2024 Bashirderek García Monicajesus alberto, [place] [address] [facility], [place], [address], [facility] 14:10:15 Lesion of lumbar spine 695118495 Active 2024 Bashir García Monicajesus alberto, TIMI [address] [facility], [place], [address], [facility] 14:10:15 Low back strain 443559857 Active 2024 Bashir García Monicajesus alberto, [place] [address] [facility], [place], [address], [facility] 14:10:15 Somatic dysfunction of sacral spine 754029353 Active 2024 Bashir García Monicajesus alberto, [place] [address] [facility], [place], [address], [facility] 14:10:15 Spasm of muscle of lower back 0518229561847 9105 Active 2024 Bashiredrek García Monicajesus alberto, [place] [address] [facility], [place], [address], [facility] 14:10:15 Neck pain 86104324 Active 2024 Bashir Leonard DC [address] [facility], [place], [address], [facility] 14:10:25 Thoracic segmental dysfunction 872652168 Active 2024 Bashir Leonard DC [address] [facility], [place], [address], [facility] 14:10:25 Cervical segmental dysfunction 473739194 Active 2024 Bashir Leonard DC [address] [facility], [place], [address], [facility] 14:10:25 Problem Notes None recorded. Procedures Surgical History Date Name Laterality Status Provider Name and Address Organization Details Recorded Time 56156: Spinal manipulation , 3 to 4 regions completed Vishnu Guerrerogiulianoerlinda [place] [address] [facility], [place], [address], [facility] 08/24/2025 19:22:29 08448: Spinal manipulation , 3 to 4 regions completed Bashir Leonard PR [address] [facility], [place], [address], [facility] 08/21/2025 12:49:59 49631: Spinal manipulation , 3 to 4 regions completed Bashir Leonard PR [address] [facility], [place], [address], [facility] 08/18/2025 14:13:26 Imaging Results None recorded. Procedure Notes None recorded. Medical Equipment None Reported. Allergies Allergen ID Allergen Name Allergen Category Reaction Reaction Severity Criticality Documentation Date Start Date Code Code System Note Provider Name and Address Organization Details Recorded Time 46471 levofloxa dimas medicatio n Not available Not available Not available 08/18/20252024 70091 RxNorm unrec ogniz ed react ion (text : Eryth ayaz, code: 43088 1003) (from [facility]ter [facility]) Not Available vinod - External Data [...] ICD10 Code Diagnosis IMO Codes Diagnosis Note [id number] Bashir Leonard DC [facility] [address] [facility] [facility] [place] [address] 08/18/2025 12:09:29 08/18/2025 15:03:30 Lumbar radiculopathy 327004148 M54.16 Spasm of m uscle of lower back 8626319348 9545080 M62.830 Lumbar seg mental dysfunction 179985234 M99.03 Somatic dy sfunction of sacral spine 444800169 M99.04 Disorder o f lumbar spine 051712065 M53.9 Lesion of lumbar spine 538027159 M99.9 Low back strain 37135950 1 S39.012A S39.012D Cervical s egmental dysfunction 688571883 M99.01 Neck pain 46562045 M54.2 Thoracic s egmental dysfunction 961498584 M99.02 [id number] Bashir Leonard DC [facility] & [address] [place] [address] 08/21/2025 09:37:20 08/21/2025 15:41:20 Lumbar radiculopathy 140912736 M54.16 Spasm of m uscle of lower back 4204495828 2745915 M62.830 Lumbar seg mental dysfunction 752711457 M99.03 Somatic dy sfunction of sacral spine 512373219 M99.04 Disorder o f lumbar spine 208614370 M53.9 Lesion of lumbar spine 698140345 M99.9 Low back strain 79058167 1 S39.012A S39.012D Cervical s egmental dysfunction 631863662 M99.01 Neck pain 86355922 M54.2 Thoracic s egmental dysfunction 462976134 M99.02 [id number] Vishnu Hernandez DC [facility] & [address] [place] [address] 08/24/2025 16:51:41 08/25/2025 15:08:07 Lumbar radiculopathy 598599807 M54.16 Spasm of m uscle of lower back 9635403296 4996175 M62.830 Lumbar seg mental dysfunction 016274450 M99.03 Somatic dy sfunction of sacral spine 076586707 M99.04 Disorder o f lumbar spine 501882182 M53.9 Lesion of lumbar spine 768016909 M99.9 Low back strain 86795618 1 S39.012A S39.012D Cervical s egmental dysfunction 262909239 M99.01 Neck pain 78955488 M54.2 Thoracic s egmental dysfunction 922545013 M99.02 Health Concerns Section Related Observation LastModified by Organization Detai ls LastModified Time None Recorded Concern Status LastModified by Organization Details LastModified Time None Recorded Payers Encounter Date Sequence Insurance Name Policy Number Policy Islas Covered Member ID Islas Member ID Guarantor Name 08/24/2025 1 [place] [employer] Heather Patton [id number] 1 Heather Patton 08/24/2025 2 [facility] [id number] Heather Patton [id number] Heather Patton Notes Date Note Type Note [...] alleviating factors, patient reportsrest. Vishnu Hernandez DC [address] [place] [address], [place], [address], [facility] 08/24/2025 19:23:10 OBGyn Episode No OBEpisode recorded.
--- OUTSIDE RECORDS SUMMARY | 2025-09-02 17:46 | XMS_ITS | Continuity of Care Document ---
Author Organization [facility] Address [address] [facility] [address] [place] [address] Assessment Encounter Date Assessment Date Assessment LastModified [...] Organization Details Recorded Time Lumbar radiculopat hy 542331741 Active 2024 Bashir García Monicajesus alberto, [place] [address] [facility], [place], [address], [facility] 14:10:15 Disorder of lumbar spine 822064679 Active 2024 Bashir Leonard, [place] [address] [facility], [place], [address], [facility] 14:10:15 Lumbar segmental dysfunction 215168663 Active 2024 Bashir García Monicajesus alberto, [place] [address] [facility], [place], [address], [facility] 14:10:15 Lesion of lumbar spine 498235933 Active 2024 Bashir García Monicajesus alberto, TIMI [address] [facility], [place], [address], [facility] 14:10:15 Low back strain 098168112 Active 2024 Bashir García Monicajesus alberto, [place] [address] [facility], [place], [address], [facility] 14:10:15 Somatic dysfunction of sacral spine 567697416 Active 2024 Bashir García Monicajesus al[place]to, [place] [address] [facility], [place], [address], [facility] 14:10:15 Spasm of muscle of lower back 4137250394920 9105 Active 2024 Bashir Ricky Monicajesus alberto, [place] [address] [facility], [place], [address], [facility] 14:10:15 Neck pain 12495888 Active 2024 Bashir Leonard DC [address] [facility], [place], [address], [facility] 14:10:25 Thoracic segmental dysfunction 706355163 Active 2024 Bashir Leonard DC [address] [facility], [place], [address], [facility] 14:10:25 Cervical segmental dysfunction 317119515 Active 2024 Bashir Leonard DC [address] [facility], [place], [address], [facility] 14:10:25 Problem Notes None recorded. Procedures Surgical History Date Name Laterality Status Provider Name and Address Organization Details Recorded Time 37570: Spinal manipulation , 3 to 4 regions completed Vishnu HernandezGILMANTON, [place] [address] [facility], [place], [address], [facility] 08/24/2025 19:22:29 21650: Spinal manipulation , 3 to 4 regions completed Bashir Anderson [place] [address] [facility], [place], [address], [facility] 08/21/2025 12:49:59 67554: Spinal manipulation , 3 to 4 regions completed Bashir Anderson [place] [address] [facility], [place], [address], [facility] 08/18/2025 14:13:26 Imaging Results None recorded. Procedure Notes None recorded. Medical Equipment None Reported. Allergies Allergen ID Allergen Name Allergen Category Reaction Reaction Severity Criticality Documentation Date Start Date Code Code System Note Provider Name and Address Organization Details Recorded Time 22139 levofloxa dimas medicatio n Not available Not available Not available 08/18/20252024 88648 RxNorm unrec ogniz ed react ion (text : Eryth ayaz, code: 26668 1003) (from exter nal [facility] e) Not Available vinod - External Data [...] ICD10 Code Diagnosis IMO Codes Diagnosis Note [id number] Bashir Leonard DC [facility] [address] [facility] [facility] [place] [address] 08/18/2025 12:09:29 08/18/2025 15:03:30 Lumbar radiculopathy 577592933 M54.16 Spasm of m uscle of lower back 3819931792 3288687 M62.830 Lumbar seg mental dysfunction 286496614 M99.03 Somatic dy sfunction of sacral spine 237827424 M99.04 Disorder o f lumbar spine 378071736 M53.9 Lesion of lumbar spine 597028395 M99.9 Low back strain 47396307 1 S39.012A S39.012D Cervical s egmental dysfunction 751629261 M99.01 Neck pain 43582668 M54.2 Thoracic s egmental dysfunction 266993940 M99.02 Health Concerns Section Related Observation LastModified by Organization Detai ls LastModified Time None Recorded Concern Status LastModified by Organization Details LastModified Time None Recorded Payers Encounter Date Sequence Insurance Name Policy Number Policy Islas Covered Member ID Islas Member ID Guarantor Name 08/18/2025 1 MEDICARE [employer]: [employer] Heather Patton [id number] 1 Heather Patton 08/18/2025 2 [id number] Heather Patton [id number] Heather Jocelynnjohn Notes Date Note Type Note [...] patient reportsrest. Bashir Leonard DC [address] [facility], [place], [address], [facility] - [facility] 08/18/2025 14:15:38 OBGyn Episode No OBEpisode recorded.
--- OUTSIDE RECORDS SUMMARY | 2025-09-02 17:46 | XMS_ITS | Continuity of Care Document ---
Author Organization [facility] Address [address] [facility] [address] [place] [address] Assessment Encounter Date Assessment Date Assessment LastModified [...] Organization Details Recorded Time Lumbar radiculopat hy 084200041 Active 2024 Bashir Andersonjesus alberto, [place] [address] [facility], [place], [address], [facility] 14:10:15 Disorder of lumbar spine 439266485 Active 2024 Bashir García Monicajesus alberto, [place] [address] [facility], [place], [address], [facility] 14:10:15 Lumbar segmental dysfunction 260013695 Active 2024 Bashir Leonard, [place] [address] [facility], [place], [address], [facility] 14:10:15 Lesion of lumbar spine 498388731 Active 2024 Bashir Andersonjesus alberto, [place] [address] [facility], [place], [address], [facility] 14:10:15 Low back strain 387444686 Active 2024 Bashir Andersonjesus alberto, [place] [address] [facility], [place], [address], [facility] 14:10:15 Somatic dysfunction of sacral spine 437230865 Active 2024 Bashir Ricky Monicajesus [place], [place] [address] [facility], [place], [address], [facility] 14:10:15 Spasm of muscle of lower back 1059099476871 9105 Active 2024 Bashir Andersonm, [place] [address] [facility], [place], [address], [facility] 14:10:15 Neck pain 57858178 Active 2024 Bashir Leonard DC [address] [facility], [facility] [place], [address], [facility] 14:10:25 Thoracic segmental dysfunction 569699937 Active 2024 Bashir Leonard DC [address] [facility], [facility] [place], [address], [facility] 14:10:25 Cervical segmental dysfunction 622654897 Active 2024 Bashir Leonard DC [address] [facility], [facility] [place], [address], [facility] 14:10:25 Problem Notes None recorded. Procedures Surgical History Date Name Laterality Status Provider Name and Address Organization Details Recorded Time 08000: Spinal manipulation , 3 to 4 regions completed Vishnu Hernandez, [place] [address] [facility], [place], [address], [facility] 08/24/2025 19:22:29 25070: Spinal manipulation , 3 to 4 regions completed Bashir Leonard, [place] [address] [facility], [place], [address], [facility] 08/21/2025 12:49:59 50433: Spinal manipulation , 3 to 4 regions completed Bashir Leonard, [place] [address] [facility], [place], [address], [facility] 08/18/2025 14:13:26 Imaging Results None recorded. Procedure Notes None recorded. Medical Equipment None Reported. Allergies Allergen ID Allergen Name Allergen Category Reaction Reaction Severity Criticality Documentation Date Start Date Code Code System Note Provider Name and Address Organization Details Recorded Time 62568 levofloxa dimas medicatio n Not available Not available Not available 08/18/20252024 72952 RxNorm unrec ogniz ed react ion (text : Eryth ayaz, code: 76220 1003) (from exter nal [facility] e) Not Available vinod - External Data [...] ICD10 Code Diagnosis IMO Codes Diagnosis Note [id number] Bashir Leonard DC [facility] [address] [facility] [facility] [place] [address] 08/18/2025 12:09:29 08/18/2025 15:03:30 Lumbar radiculopathy 577358956 M54.16 Spasm of m uscle of lower back 6699304311 9197095 M62.830 Lumbar seg mental dysfunction 706027494 M99.03 Somatic dy sfunction of sacral spine 602986170 M99.04 Disorder o f lumbar spine 754973375 M53.9 Lesion of lumbar spine 473561441 M99.9 Low back strain 12425084 1 S39.012A S39.012D Cervical s egmental dysfunction 018860826 M99.01 Neck pain 58430418 M54.2 Thoracic s egmental dysfunction 951653958 M99.02 [id number] Bashir Leonard DC [facility] [address] [facility] [place] [address] 08/21/2025 09:37:20 08/21/2025 15:41:20 Lumbar radiculopathy 647408410 M54.16 Spasm of m uscle of lower back 4951134134 6495277 M62.830 Lumbar seg mental dysfunction 204615498 M99.03 Somatic dy sfunction of sacral spine 412492354 M99.04 Disorder o f lumbar spine 502592819 M53.9 Lesion of lumbar spine 747374312 M99.9 Low back strain 91236376 1 S39.012A S39.012D Cervical s egmental dysfunction 674201822 M99.01 Neck pain 56048540 M54.2 Thoracic s egmental dysfunction 955117350 M99.02 Health Concerns Section Related Observation LastModified by Organization Detai ls LastModified Time None Recorded Concern Status LastModified by Organization Details LastModified Time None Recorded Payers Encounter Date Sequence Insurance Name Policy Number Policy Islas Covered Member ID Islas Member ID Guarantor Name 08/21/2025 1 [place] [email or web address] Heather Patton [id number] 1 Heather Jocelynnjohn 08/21/2025 2 [facility] [id number] Heather Cochran Pooja [id number] Heather Patton Notes Date Note Type Note [...] factors, patient reportsrest. Bashir Leonard DC [address] [facility], [place], [address], [facility] - [facility] 08/21/2025 12:52:01 OBGyn Episode No OBEpisode recorded.
[2025-09-02 17:58] VITALS: BP 143/81; PULSE 118; RESP 30; TEMP 36.7; O2SAT 92; BMI 27.6
[2025-09-02] MEDS: MECLIZINE HCL 25 MG TABLET PO (18:38)
[2025-09-02] MEDS: IPRAT-ALBUT 0.5-2.5 MG/3 ML NEB 1 NEB IH (18:38)
[2025-09-02 18:47] VITALS: BP 138/92; PULSE 93; RESP 18; O2SAT 94
--- NOTE | 2025-09-02 19:28 | ED.SOB ---
HPI - SOB/Dyspnea General Chief Complaint: Shortness of Breath/Dyspnea Stated Complaint: trouble breathing Time Seen by Provider: 09/02/25 18:30 History of Present Illness HPI Narrative: This 75-year-old female comes in reporting shortness of breath. She states that she was breathing some smoke in the kitchen that was present after cooking a meal and this triggered symptoms. She does rarely use albuterol with symptoms like this but did use her albuterol inhaler today without much relief. She was recently diagnosed with a pulmonary embolism and is taking Eliquis. She had compression fractures in her back and was wearing a brace and was during this time that she apparently had increased risk for blood clot. She does have a history of asthma like symptoms that occur rarely but she has benefited with albuterol at those times. Today albuterol did not seem to help her. She states that she does use a spacer when using albuterol. She is also reporting some vertigo symptoms. This is not new for her. She states that the symptoms are absent when remaining still. Related Data Home Medications ?Medication ?Instructions ?Recorded ?Confirmed malaria pills PO 05/04/24 05/10/25 Previous Rx's ?Medication ?Instructions ?Recorded azelastine 0.05 % eye drops 1 drp ophthalmic (eye) BID #6 mL 05/04/24 lidocaine 5 % topical patch 1 patch topical DAILY #15 ea 05/31/25 (Lidoderm) apixaban 5 mg (74 tabs) tablets in See Rx Instructions PO .COMPLEX 08/28/25 a dose pack (Eliquis DVT-PE Treat #74 ea 30D Start) methylprednisolone 4 mg tablets in See Rx Instructions PO .COMPLEX 09/02/25 a dose pack (Medrol (Mukesh)) #21 ea Allergies Allergy/AdvReac Type Severity Reaction Status Date / Time giovana flavor Allergy Severe Swelling Verified 08/28/25 17:03 of Lip/Tongue/Throat levofloxacin (From Levaquin) Allergy Verified 08/28/25 17:03 Review of Systems Status of ROS: Reports: 10 or more systems reviewed and unremarkable except as noted in History and below Narrative: Constitutional: No fevers, no weight gain or loss. Eyes: No discharge. No vision changes. HENT: No congestion, no sore throat, no ear pain. Cardiovascular: No chest pain, no palpitations. Respiratory: No wheezes, no cough. Shortness of breath as described above. Gastrointestinal: No abdominal pain, no vomiting, no diarrhea. Genitourinary: No dysuria, no hematuria. Musculoskeletal: Normal range of motion. Skin: No rashes, no pruritis. Neurological: No dizziness, weakness, sensory change, speech change. Endo/Heme/Allergies: No bruising or bleeding. No polydipsia. Pysch: no suicidality, no anxiety, no insomnia. All other systems reviewed and are negative. [facility] Medical History Fracture of left wrist ?S62.102A - Fracture of unspecified carpal bone, left wrist, initial encounter for closed fracture (ICD-10) Cancer of left breast (05/2008) ?C50.912 - Malignant neoplasm of unspecified site of left female breast (ICD-10) Surgical History Previous section ?Z98.891 - History of uterine scar from previous surgery (ICD-10) History of appendectomy ?Z90.49 - Acquired absence of other specified parts of digestive tract (ICD-10) History of lumpectomy of left breast (06/03/08) ?Z98.890 - Other specified postprocedural states (ICD-10) History of reduction of closed fracture (02/03/19) ?Z87.81 - Personal history of (healed) traumatic fracture (ICD-10) Family History Maternal Grandmother Colon cancer Social History Smoking Status: Never smoker Do you use any of these nicotine containing products: None Second hand tobacco smoke exposure: No How often do you have a drink containing alcohol: monthly or less AUDIT-C Alcohol total score: 1 Non-prescribed substance use: denies use service: No Exam Narrative: Exam Narrative: Constitutional: Well-developed, well-nourished, no acute distress. HEENT: Normocephalic, atraumatic. Neck: Normal range of motion. Nontender. Supple. Heart: Regular. No murmurs. Normal rate. Intact distal pulses. Lungs: Clear to auscultation. No chest discomfort. No wheezes, rhonchi, or rales. Her breathing does sound tight with some decreased air movement but no sign of wheezes. Oximetry is in normal range. Abdomen: Normal bowel sounds. Nontender. No rebound tenderness. Genitalia: Deferred. Back: No midline tenderness. Normal range of motion. Extremities: Normal range of motion. No injury. Skin: Intact. No rash. Warm. No erythema or pallor. Neurologic: No altered sensation. No weakness. Alert and oriented. Psychiatric: No suicidality. No anxiety or depression. No insomnia. Nursing notes and vitals signs are reviewed. Const: Vital Signs, click to edit/add: Vital Signs - 24 hr 09/02/25 17:58 09/02/25 18:47 Temperature 98.0 F Pulse Rate 93 Pulse Rate [Pulse Oximeter] 118 H Respiratory Rate 30 H 18 Blood Pressure 138/92 H Blood Pressure [Ri ght Upper Arm] 143/81 H Pulse Oximetry 92 94 Oxygen Delivery Me thod Room Air Course Vital Signs Vital signs: Initial Vital Signs Temperature 98.0 F 09/02/25 17:58 Temperature Source Temporal Artery Scan 09/02/25 17:58 Pulse Rate 118 H 09/02/25 17:58 Respiratory Rate 30 H 09/02/25 17:58 Blood Pressure 143/81 H 09/02/25 17:58 Blood Pressure Mean 101 09/02/25 17:58 Blood Pressure Position Sitting 09/02/25 17:58 Pulse Oximetry 92 09/02/25 17:58 Oxygen Delivery Method Room Air 09/02/25 17:58 Vital Signs Temperature 98.0 F 09/02/25 17:58 Pulse Rate 118 H 09/02/25 17:58 Respiratory Rate 30 H 09/02/25 17:58 Blood Pressure 143/81 H 09/02/25 17:58 Pulse Oximetry 92 09/02/25 17:58 Oxygen Delivery Method Room Air 09/02/25 17:58 Temperature 98.0 F 09/02/25 17:58 Pulse Rate 93 09/02/25 18:47 Respiratory Rate 18 09/02/25 18:47 Blood Pressure 138/92 H 09/02/25 18:47 Pulse Oximetry 94 09/02/25 18:47 Oxygen Delivery Method Room Air 09/02/25 17:58 Medications Administered Medications: Discontinued Medications Generic Name Dose Route Start Last Admin Trade Name Irma PRN Reason Stop Dose Admin Albuterol/Ipratropium 1 neb 09/02/25 18:34 09/02/25 18:38 Iprat-Albut 0.5-2.5 Mg/3 Ml Neb IH 09/02/25 18:35 1 neb ONCE ONE Administration Dexamethasone 10 mg 09/02/25 18:36 09/02/25 18:38 Dexamethasone 10 Mg/Ml Inj PO 09/02/25 18:37 10 mg ONCE ONE Administration Meclizine HCl 25 mg 09/02/25 18:34 09/02/25 18:38 Meclizine Hcl 25 Mg Tablet PO 09/02/25 18:35 25 mg ONCE ONE Administration MDM - SOB/Dyspnea MDM Narrative Medical decision making narrative: This patient comes in with report of feeling short of breath. She is maintaining sufficient enough vital signs on room air. She has a recent diagnosis of pulmonary embolism also. She is taking Eliquis. I did review recent records including imaging and lab results. The patient received a DuoNeb treatment and an oral dose of dexamethasone. This brought great relief to her symptoms and her oximetry and vital signs improved also. She also received the oral dose of meclizine which did also provide some relief of her vertigo symptoms. She is okay to be discharged home. I did provide a prescription for Medrol Dosepak. She states that she has albuterol at home. I did review proper technique for use of her inhaler. Discharge Plan Discharge Clinical Impression: Asthma with acute exacerbation, Pulmonary embolism Patient Disposition: Home, Self-Care Condition: Improved Additional Instructions: Use albuterol as needed. Take Medrol Dosepak if symptoms are recurrent. Follow up with MD return if worsening symptoms happen. Prescriptions: New methylprednisolone [Medrol (Mukesh)] 4 mg tablets,dose pack See Rx Instructions .ROUTE .COMPLEX Qty: 21 0RF Rx Instructions: orally per package directions No Action malaria pills PO azelastine 0.05 % drops 1 drp ophthalmic (eye) BID Qty: 6 0RF lidocaine [Lidoderm] 5 % adhesive patch,medicated 1 patch topical DAILY Qty: 15 0RF Rx Instructions: leave on most painful area for up to 12 hrs Eliquis DVT-PE Treat 30D Start 5 mg (74 tabs) tablets,dose pack See Rx Instructions .ROUTE .COMPLEX Qty: 74 0RF Rx Instructions: orally per package directions Follow Up/Referrals: Danielle Taylor MD [Primary Care Provider, Family Practice] Stand Alone Forms: Preact Info Instructions
== END 2025-09-02 19:48 | disposition home or self-care (01) ==
PROVIDERS: Emergency Provider Emergency Medicine Emergency Medical Services; PCP Family Medicine
DX: J45.901 Unspecified asthma with (acute) exacerbation (principal)
CPT/HCPCS: 94640; 99284; A9270; J1100

== ENCOUNTER 2025-09-04 18:52 | Emergency (ER) | payer MEDICARE, BC, SELFPAY ==
[2025-09-04] VITALS (11 sets, daily range): BP systolic 125–137; BP diastolic 83–93; PULSE 82–113; RESP 14–39; TEMP 36.6; O2SAT 92–94; BMI 28.3
--- OUTSIDE RECORDS SUMMARY | 2025-09-04 18:54 | XMS_ITS | Continuity of Care Document ---
Author Organization [facility] Address [address] [place] [address] Assessment Encounter Date Assessment Date Assessment LastModified [...] Organization Details Recorded Time Lumbar radiculopat hy 277936499 Active 2024 Bashir García Monicajesus [place]ber[place], [place] [address], [place], [address], [facility] 14:10:15 Disorder of lumbar spine 519234324 Active 2024 Bashir Leonard, [place] [address], [place], [address], [facility] 14:10:15 Lumbar segmental dysfunction 161817529 Active 2024 Bashir García Monicajesus [place], [place] [address], [place], [address], [facility] 14:10:15 Lesion of lumbar spine 441968933 Active 2024 Bashir García Monicajesus alberto, TIMI [address], [place], [address], [facility] 14:10:15 Low back strain 205568567 Active 2024 Bashir García Monicajesus [place], [place] [address], [place], [address], [facility] 14:10:15 Somatic dysfunction of sacral spine 921101254 Active 2024 Bashir García Monicajesus [place], [place] [address], [place], [address], [facility] 14:10:15 Spasm of muscle of lower back 0201839961905 9105 Active 2024 Bashir Ricky Monicajesus [place], [place] [address], [place], [address], [facility] 14:10:15 Neck pain 81098971 Active 2024 Bashir Leonard DC [address], [place], [address], [facility] 14:10:25 Thoracic segmental dysfunction 556108707 Active 2024 Bashir Leonard DC [address], [facility] [place], [address], [facility] 14:10:25 Cervical segmental dysfunction 012154617 Active 2024 Bashir Leonard DC [address], [place], [address], [facility] 14:10:25 Problem Notes None recorded. Procedures Surgical History Date Name Laterality Status Provider Name and Address Organization Details Recorded Time 04593: Spinal manipulation , 3 to 4 regions completed Vishnu HernandezMADISON, [place] [address], [place], [address], [facility] 08/24/2025 19:22:29 52554: Spinal manipulation , 3 to 4 regions completed Bashir Anderson [place] [address], [place], [address], [facility] 08/21/2025 12:49:59 03131: Spinal manipulation , 3 to 4 regions completed Bashir Anderson PR [address], [place], [address], [facility] 08/18/2025 14:13:26 Imaging Results None recorded. Procedure Notes None recorded. Medical Equipment None Reported. Allergies Allergen ID Allergen Name Allergen Category Reaction Reaction Severity Criticality Documentation Date Start Date Code Code System Note Provider Name and Address Organization Details Recorded Time 31557 levofloxa dimas medicatio n Not available Not available Not available 08/18/20252024 14812 RxNorm unrec ogniz ed react ion (text : Eryth ayaz, code: 95520 1003) (from exter nal [facility] e) Not Available vinod - External [...] ICD10 Code Diagnosis IMO Codes Diagnosis Note [id number] Bashir Leonard DC [facility] [address] [facility] [place] [address] 08/18/2025 12:09:29 08/18/2025 15:03:30 Lumbar radiculopathy 940489514 M54.16 Spasm of m uscle of lower back 7586288289 8702858 M62.830 Lumbar seg mental dysfunction 988848598 M99.03 Somatic dy sfunction of sacral spine 394435167 M99.04 Disorder o f lumbar spine 623120578 M53.9 Lesion of lumbar spine 630370600 M99.9 Low back strain 66050643 1 S39.012A S39.012D Cervical s egmental dysfunction 957781985 M99.01 Neck pain 26723453 M54.2 Thoracic s egmental dysfunction 330288148 M99.02 Health Concerns Section Related Observation LastModified by Organization Detai ls LastModified Time None Recorded Concern Status LastModified by Organization Details LastModified Time None Recorded Payers Encounter Date Sequence Insurance Name Policy Number Policy Islas Covered Member ID Islas Member ID Guarantor Name 08/18/2025 1 MEDICARE B-[employer]: [employer] Heather Patton [id number] 1 Heather Patton 08/18/2025 2 [id number] Heather Patton [id number] Heather Jocelynnjohn Notes Date Note Type Note [...] factors, patient reportsrest. Bashir Leonard DC [address], [place], [address], [facility] - [facility] 08/18/2025 14:15:38 OBGyn Episode No OBEpisode recorded.
--- OUTSIDE RECORDS SUMMARY | 2025-09-04 18:54 | XMS_ITS | Continuity of Care Document ---
Author Organization [facility] Address [address] [place] [address] Assessment Encounter Date Assessment Date Assessment LastModified [...] Organization Details Recorded Time Lumbar radiculopat hy 320038905 Active 2024 Bashir Ricky Andersonjesus [place], [place] [address], [place], [address], [facility] 14:10:15 Disorder of lumbar spine 313503946 Active 2024 Bashir García Monicajesus alberto, TIMI [address] [facility], [place], [address], [facility] 14:10:15 Lumbar segmental dysfunction 282309609 Active 2024 Bashirderek García Monicajesus alberto, [place] [address] [facility], [place], [address], [facility] 14:10:15 Lesion of lumbar spine 898525363 Active 2024 Bashir García Monicajesus alberto, TIMI [address] [facility], [place], [address], [facility] 14:10:15 Low back strain 286655540 Active 2024 Bashir García Monicajesus alber[place], [place] [address] [facility], [place], [address], [facility] 14:10:15 Somatic dysfunction of sacral spine 482307201 Active 2024 Bashir García Monicajesus alberto, [place] [address] [facility], [place], [address], [facility] 14:10:15 Spasm of muscle of lower back 8462450340990 9105 Active 2024 Bashirderek García Monicajesus alberto, [place] [address] [facility], [place], [address], [facility] 14:10:15 Neck pain 83685146 Active 2024 Bashir Leonard DC [address] [facility], [place], [address], [facility] 14:10:25 Thoracic segmental dysfunction 581827232 Active 2024 Bashir Leonard DC [address] [facility], [place], [address], [facility] 14:10:25 Cervical segmental dysfunction 867988588 Active 2024 Bashir Leonard DC [address] [facility], [place], [address], [facility] 14:10:25 Problem Notes None recorded. Procedures Surgical History Date Name Laterality Status Provider Name and Address Organization Details Recorded Time 85290: Spinal manipulation , 3 to 4 regions completed Vishnu Guerrerogiulianoerlinda [place] [address] [facility], [place], [address], [facility] 08/24/2025 19:22:29 63438: Spinal manipulation , 3 to 4 regions completed Bashir Leonard [place] [address] [facility], [place], [address], [facility] 08/21/2025 12:49:59 87367: Spinal manipulation , 3 to 4 regions completed Bashir Leonard [place] [address] [facility], [place], [address], [facility] 08/18/2025 14:13:26 Imaging Results None recorded. Procedure Notes None recorded. Medical Equipment None Reported. Allergies Allergen ID Allergen Name Allergen Category Reaction Reaction Severity Criticality Documentation Date Start Date Code Code System Note Provider Name and Address Organization Details Recorded Time 46312 levofloxa dimas medicatio n Not available Not available Not available 08/18/20252024 08120 RxNorm unrec ogniz ed react ion (text : Eryth ayaz, code: 80653 1003) (from [facility] e) Not Available vinod - External Data [...] ICD10 Code Diagnosis IMO Codes Diagnosis Note [id number] Bashir Leonard DC [facility] [address] [facility] [address] [facility] [facility] [place] [address] 08/18/2025 12:09:29 08/18/2025 15:03:30 Lumbar radiculopathy 410816923 M54.16 Spasm of m uscle of lower back 2241958464 2265809 M62.830 Lumbar seg mental dysfunction 417052645 M99.03 Somatic dy sfunction of sacral spine 925786326 M99.04 Disorder o f lumbar spine 937655788 M53.9 Lesion of lumbar spine 080213657 M99.9 Low back strain 81011214 1 S39.012A S39.012D Cervical s egmental dysfunction 646544573 M99.01 Neck pain 84925947 M54.2 Thoracic s egmental dysfunction 955859792 M99.02 [id number] Bashir Leonard DC [facility] & [address] [place] [address] 08/21/2025 09:37:20 08/21/2025 15:41:20 Lumbar radiculopathy 868580883 M54.16 Spasm of m uscle of lower back 7058279972 5212480 M62.830 Lumbar seg mental dysfunction 692268238 M99.03 Somatic dy sfunction of sacral spine 368385190 M99.04 Disorder o f lumbar spine 221819702 M53.9 Lesion of lumbar spine 205680681 M99.9 Low back strain 87151327 1 S39.012A S39.012D Cervical s egmental dysfunction 413977119 M99.01 Neck pain 51258191 M54.2 Thoracic s egmental dysfunction 735922043 M99.02 [id number] Vishnu Hernandez DC [facility] & [address] [place] [address] 08/24/2025 16:51:41 08/25/2025 15:08:07 Lumbar radiculopathy 526372194 M54.16 Spasm of m uscle of lower back 6101434859 3304934 M62.830 Lumbar seg mental dysfunction 800859722 M99.03 Somatic dy sfunction of sacral spine 483994659 M99.04 Disorder o f lumbar spine 449838784 M53.9 Lesion of lumbar spine 492236367 M99.9 Low back strain 61261699 1 S39.012A S39.012D Cervical s egmental dysfunction 138158905 M99.01 Neck pain 27515349 M54.2 Thoracic s egmental dysfunction 892106117 M99.02 Health Concerns Section Related Observation LastModified by Organization Detai ls LastModified Time None Recorded Concern Status LastModified by Organization Details LastModified Time None Recorded Payers Encounter Date Sequence Insurance Name Policy Number Policy Islas Covered Member ID Islas Member ID Guarantor Name 08/24/2025 1 [place] [employer] Heather Patton [id number] 1 Heather Patton 08/24/2025 2 [facility] [id number] Heather Patton [id number] Heather Patton Notes Date Note Type Note [...] alleviating factors, patient reportsrest. Vishnu Hernandez DC [address] [place] [address], [place], [address], [facility] 08/24/2025 19:23:10 OBGyn Episode No OBEpisode recorded.
--- OUTSIDE RECORDS SUMMARY | 2025-09-04 18:54 | XMS_ITS | Data Portability ---
Author Organization [place] - [facility], autoContract - E [facility] Address [address] [place] [address] Assessment Encounter Date Assessment Date Assessment LastModified [...] Organization Details Recorded Time Lumbar radiculopat hy 175841675 Active 2024 Bashir Leonard DC [address] [facility], [place], [address], [facility] 14:10:15 Disorder of lumbar spine 866621994 Active 2024 Bashir Leonard DC [address] [facility], [place], [address], [facility] 14:10:15 Lumbar segmental dysfunction 839155517 Active 2024 Bashir Leonrad DC [address] [facility], [place], [address], [facility] 14:10:15 Lesion of lumbar spine 930886392 Active 2024 Bashir Leonard DC [address] [facility], [place], [address], [facility] 14:10:15 Low back strain 390465173 Active 2024 Bashir Leonard DC [address] [facility], [place], [address], [facility] 14:10:15 Somatic dysfunction of sacral spine 867725179 Active 2024 Bashir Leonard DC [address] [facility], [place], [address], [facility] 14:10:15 Spasm of muscle of lower back 8215145592385 9105 Active 2024 Bashir Leonard DC [address] [facility], [place], [address], [facility] 14:10:15 Neck pain 85656935 Active 2024 Bashir Ricky Leonard DC [address] [facility], [place], [address], [facility] 14:10:25 Thoracic segmental dysfunction 631729076 Active 2024 Bashir Leonard DC [address] [facility], [place], [address], [facility] 14:10:25 Cervical segmental dysfunction 714485232 Active 2024 Bashir Ricky Leonard DC [address] [facility], [place], [address], [facility] 14:10:25 Problem Notes None recorded. Procedures Surgical History Date Name Laterality Status Provider Name and Address Organization Details Recorded Time 5 73209: Spinal manipulation , 3 to 4 regions completed Vishnu Hernandez DC [address] [facility], [place], [address], [facility] 08/24/2025 19:22:29 5 54823: Spinal manipulation , 3 to 4 regions completed Bashir Leonard DC [address] [facility], [place], [address], [facility] 08/21/2025 12:49:59 5 62832: Spinal manipulation , 3 to 4 regions completed Bashir Leonard DC [address] [facility], [place], [address], [facility] 08/18/2025 14:13:26 Imaging Results None recorded. Procedure Notes None recorded. Medical Equipment None Reported. Allergies Allergen ID Allergen Name Allergen Category Reaction Reaction Severity Criticality Documentation Date Start Date Code Code System Note Provider Name and Address Organization Details Recorded Time 62202 levofloxa dimas medicatio n Not available Not available Not available 08/18/20252024 46797 RxNorm unrec ogniz ed react ion (text : Eryth ayaz, code: 29449 1003) (from exter nal sour e) Not Available [employer] External Data Service - prod 12:11:32 Medications [...] ICD10 Code Diagnosis IMO Codes Diagnosis Note [id number] Bashir Leonard DC [facility] [address] [facility] [place] [address] 08/18/2025 12:09:29 08/18/2025 15:03:30 Lumbar radiculopathy 427108741 M54.16 Spasm of m uscle of lower back 3954938739 4832414 M62.830 Lumbar seg mental dysfunction 783745920 M99.03 Somatic dy sfunction of sacral spine 123816881 M99.04 Disorder o f lumbar spine 845802043 M53.9 Lesion of lumbar spine 946263658 M99.9 Low back strain 19758426 1 S39.012A S39.012D Cervical s egmental dysfunction 911407348 M99.01 Neck pain 16206565 M54.2 Thoracic s egmental dysfunction 228969071 M99.02 234251 Bashir Leonard DC [facility] [address] [place] [address] 08/21/2025 09:37:20 08/21/2025 15:41:20 Lumbar radiculopathy 166602040 M54.16 Spasm of m uscle of lower back 7519372436 0217503 M62.830 Lumbar seg mental dysfunction 589524878 M99.03 Somatic dy sfunction of sacral spine 482668719 M99.04 Disorder o f lumbar spine 392993193 M53.9 Lesion of lumbar spine 656693272 M99.9 Low back strain 24478788 1 S39.012A S39.012D Cervical s egmental dysfunction 102123824 M99.01 Neck pain 79609055 M54.2 Thoracic s egmental dysfunction 824962397 M99.[address] DC [facility] TIC & [address] [facility] [place] [address] 08/24/2025 16:51:41 08/25/2025 15:08:07 Lumbar radiculopathy 480815739 M54.16 Spasm of m uscle of lower back 9795159695 6177849 M62.830 Lumbar seg mental dysfunction 913785290 M99.03 Somatic dy sfunction of sacral spine 161460103 M99.04 Disorder o f lumbar spine 035430307 M53.9 Lesion of lumbar spine 932298227 M99.9 Low back strain 24356277 1 S39.012A S39.012D Cervical s egmental dysfunction 827842215 M99.01 Neck pain 39898569 M54.2 Thoracic s egmental dysfunction 910603620 M99.02 Health Concerns Section Related Observation LastModified by Organization Detai ls LastModified Time None Recorded Concern Status LastModified by Organization Details LastModified Time None Recorded Advance Directives Directive None Recorded Payers Insurance Date Sequence Insurance Name Policy Number Policy Islas Covered Member ID Islas Member ID Guarantor Name 08/28/2025 1 [place] Heather Patton [id number] 1 Heather Pooja 08/24/2025 2 [place] [id number] Heather Patton [id number] Heather Jocelynnjohn Notes Date Note Type Note [...] factors, patient reportsrest. Bashir Leonard, TIMI [address] [facility], [place], [address], [facility] 08/18/2025 14:15:38 08/21/2025 text/html HPI - Cervical SpineReported by PatientHPIFor location, patient reportsbilateral. For quality, patient reportsaching. For severity, patient reportsmoderate. For duration, patient reports2 weeks. For timing, patient reportsgradual. For alleviating factors, patient reportsice. For aggravating factors, patient reportsbendingandtwi sting/turning. For associated symptoms, patient reportsno numbness/tingling. HPI - Lumbar SpineReported by [facility] quality, patient reportsaching. For severity, patient reportsmoderate. For timing, patient reportscannot identify. For duration, patient reportsacute. For context, patient reportsbending,lifti ng, andtwisting. For aggravating factors, patient reportslifting,carry ing,twisting,bending /squatting,pushing/p ulling,exercise, andgoing from sit to stand. For alleviating factors, patient reportsrest. Bashir Leonard DC [address] [facility], [place], [address], [facility] 08/21/2025 12:52:01 08/24/2025 text/html HPI - Cervical SpineReported by PatientHPIFor location, patient reportsbilateral. For quality, patient reportsaching. For severity, patient reportsmoderate. For duration, patient reports2 weeks. For timing, patient reportsgradual. For alleviating factors, patient reportsice. For aggravating factors, patient reportsbendingandtwi sting/turning. For associated symptoms, patient reportsno numbness/tingling. HPI - Lumbar SpineReported by [facility] quality, patient reportsaching. For severity, patient reportsmoderate. For timing, patient reportscannot identify. For duration, patient reportsacute. For context, patient reportsbending,lifti ng, andtwisting. For aggravating factors, patient reportslifting,carry ing,twisting,bending /squatting,pushing/p ulling,exercise, andgoing from sit to stand. For alleviating factors, patient reportsrest. Vishnu Hernandez DC [address] [facility], [place], [address], [facility] 08/24/2025 19:23:10 OBGyn Episode No OBEpisode recorded.
--- OUTSIDE RECORDS SUMMARY | 2025-09-04 18:55 | XMS_ITS | Clinical Summary ---
Author Organization [employer] [facility] [facility] Address [address] [place] [address] Care Team Providers Care Trust And Estates Attorney Name Role Phone Guero Amador Unavailable Unavailable Danielle Taylor MD Primary Care Provider [phone] Julien Cagle MD Unavailable [phone] Allergies Active Allergy Reactions Criticality Noted Date Comments Levofloxacin Erythema facial erythema/itching Mazon Flavor Unlisted Allergen (Include Detail In Comments) [...] Department Care Team Description 08/28/2025 Orders Only [facility] Scanner 1 scan: (1-Ord) [facility], CTA CHEST PE PROTOCOL, 08/28/2025 08/28/2025 Nurse Triage [facility] [address] [place] [address] Danielle Taylor MD Difficulty Breathing 08/25/2025 10:47 AM BONE DRIER - 08/25/2025 11:59 PM [facility] Hospital Encounter [address] [address] Kavon Berg DO Iverson, Ryan, PT 08/25/2025 Telephone [facility] [address] [place] [address] Danielle Taylor MD Referral (Genetic testing ) 08/25/2025 Travel 08/17/2025 1:47 PM BONE DRIER - 08/17/2025 11:59 PM [facility] Hospital Encounter [address] [address] Kavon Berg DO Kaufenberg, Rachel, PT Vertigo 08/17/2025 Travel 08/16/2025 Telephone [facility] [address] Kavon Berg DO Follow Up 08/15/2025 Orders Only [facility] [place] [address] Gabriela Lange R.T. (ARRT) 1 scan: (1-Ord) NFLD_EKG_08/14/2025 08/14/2025 11:15 AM BONE DRIER Orders Only [facility] [place] [address] <No scans attached> 08/14/2025 10:10 AM BONE DRIER Office Visit [facility] [place] [address] Kavon Berg DO Vertigo (X1 day - woke up this AM with dizziness) 08/14/2025 8:45 AM BONE DRIER Nurse/Clinic Staff Only [facility] [place] [address] Error-please disregard 08/14/2025 Travel 08/02/2025 Telephone [facility] [place] [address] Danielle Taylor MD Follow Up 07/27/2025 10:30 AM CDT Office Visit [address] [address] Julien Cagle MD Consult (Menopause, Closed compression fracture of thoracic vertebra) 07/26/2025 Travel 07/24/2025 1:00 PM CDT Ancillary Procedure [facility] [place] [facility] [place] [address] 07/24/2025 Travel 07/21/[address] [address] Julien Cagle MD Questions 07/21/[address] [place] [address] Danielle Taylor MD Questions (To help expedite healing, bone density appt and endocrinology appt) 07/13/2025 12:45 PM CDT Office Visit [facility] [address] [place] [address] Danielle Taylor MD Hospital F/U ([facility] DOD 06/15/25, TCU DOD 07/07/25) 07/13/2025 Travel 06/20/2025 Telephone [facility] [address] [place], [place] [address] Oncology, [facility] Questions 06/05/2025 Orders Only [facility] Scanner 1 scan: (1-Ord) [facility], CT LUMBAR SPINE WO CON, 06/05/2025 06/05/2025 Orders Only [facility] Scanner 1 scan: (1-Ord) [place], THORACIC SPINE WO CON, 06/05/2025 06/05/2025 Orders Only [facility] Scanner 1 scan: (1-Ord) [facility], CT THORACIC SPINE WO CON, 06/05/2025 from Last 3 Months Immunizations Immunization Administration Dates Next Due COVID-19 VACCINE SPIKEVAX (M ODERNA 50MCG/0.5ML) 12YO+ PFS 02/11/2024 COVID-19 vaccine ([employer]-Bio NTech 30mcg/0.3mL) 12YO+ BIVALENT PF, MDV 07/25/2022 COVID-19 vaccine ([employer] NTech 30mcg/0.3mL) PF, MDV 09/05/2021 Hepatitis A (Adult) 05/18/2015,11/13/2014 Hepatitis B (Adult) 02/11/2024,01/14/2023,2021 Influenza Virus, Unspecified 08/23/2018 Influenza, High-dose Inactivated 09/21/2024,08/05 Influenza, High-dose Quadriv alent Inactivated 07/24/2023 Influenza, IIV3 (Age >=3 years) 07/29/2013,07/16,07/05/2011 Influenza, IIV4 07/24/2014 Influenza, Inactivated AIIV4 (Age 65+ Years) Preserv Free 07/25/2022,12/06/2021,06/14/2020 Influenza, Inactivated IIV3 (Age 65+ Years) Preserv Free 07/13/2025,07/14/2019,06/02/2017 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,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 Pneumococcal Poly,23-Valent (Pneumovax) 06/14/20 20,11/13/2014 [...] on file Legal Sex Female 5:26 AM BONE DRIER Gender Identity Not on file Sexual Orientation [...] Comments Blood Pressure 138/92 08/14/2025 9:57 AM BONE DRIER Pulse 79 08/14/2025 9:57 AM BONE DRIER Temperature 36.6 C (97.8 F) 06/25/2023 11:19 AM CDT Respiratory Rate 16 06/25/2023 11:19 AM CDT Oxygen Saturation 98% 08/14/2025 9:57 AM BONE DRIER Inhaled Oxygen Concentration - - Weight 68.5 kg (151 lb) 07/27/2025 10:33 AM CDT Height 156.8 cm (5' 1.73) 06/01/2025 11:03 AM C DT Body Mass Index 27.86 06/01/2025 11:03 AM CDT Plan of Treatment Upcoming Encounters Date Type Department Care Team (Late st Contact Info) Description 09/05/2025 12:50 PM BONE DRIER Office Visit [facility] [address] [place] [address] Kavon Berg DO [address] [facility] [address] 09/07/2025 2:30 PM BONE DRIER Appointment [facility] [address] [place] [address] Erwin Quezada, PT [address] [place] [address] 10/19/2025 1:30 PM BONE DRIER Telemedicine [facility] [address] [place] [address] Lara Castillo, MS, [facility] [address] [facility] [address] [place] [address] Health Maintenance Due Date Last Done Comments [...] 07/19/2019, 09/06/2013 Medical Devices Implanted Type Area Hand Bindery Assembly Worker Device Identifier Shelf Expiration Date Model / Serial / Lot Port X Port Mri 6fr Venous Cath Kit [id number] - [id number] Implanted:Qty: 1 on 07/04/2008 at [facility] [employer] [id number] / / [id number] Procedures Procedure Name Priority Date/Time Associated Diagnosis Comments SCAN-CT INTERPRETATION 5 12:00 AM BONE DRIER SC READING EKG - NO CHARGE, COMP ONLY Routine 08/15/2025 4:21 PM BONE DRIER Vertigo EKG 12 LEAD Routine 08/15/2025 4:21 PM BONE DRIER Vertigo US CAROTID DUPLEX BILATERAL TYSHAWN 08/14/2025 12:09 PM BONE DRIER Bruit of left carotid artery XR DXA BONE DENSITY 2 SITES AXIAL AND 1 SITE PERIPHERAL Routine 07/24/2025 1:40 PM CDT Closed compression fracture of thoracic vertebra with routine healing, subsequent encounter Menopause SCAN-CT INTERPRETATION 5 12:00 AM CDT SCAN-CT INTERPRETATION 5 12:00 AM CDT SCAN-CT INTERPRETATION 5 12:00 AM CDT LIPID PANEL W REFLEX MEASURED LDL Routine 09/17/2023 10:54 AM BONE DRIER Lipid screening ANTI HCV Routine 06/12/2023 4:06 PM CDT Need for hepatitis C screening test COLONOSCOPY SCREENING Routine 08/13/2022 7:30 AM BONE DRIER History of colon polyps from Last 3 Months or Most Recently Relevant to Health Maintenance Results * SCAN-CT INTERPRETATION (08/28/2025 12:00 AM BONE DRIER) Only the most recent of4 resultswithin the time period is included. Anatomical Region Laterality Modality Other us Scanner OTHER Final Result * EKG 12 LEAD (08/15/2025 4:21 PM BONE DRIER) us Adei Shaqra DO EKG ORD Final Result * SC READING EKG - NO CHARGE, COMP ONLY (08/15/2025 4:21 PM BONE DRIER) us Adei Shaqra DO PB - PROVIDER READINGS Final Res ult * US CAROTID DUPLEX BILATERAL (08/14/2025 12:09 PM BONE DRIER) Anatomical Region Laterality Modality CAROTID, NECK Ultrasound 08/14/2025 12:2 6 PM BONE DRIER Impressions 08/14/2025 12:26 PM BONE DRIER 1. Minimal bilateral plaque without stenosis. Dictated by Ethan Forde MD @ 08/14/2025 12:26:36 PM (Electronically Signed) Narrative 08/14/2025 12:26 PM BONE DRIER For Patients: As a result of the [...] @ 08/14/2025 12:26:36 PM (Electronically Signed) us [facility] US Final Result * (ABNORMAL) XR [...] to assess therapeutic efficacy. Dawn Carlton PA-C [facility] 07/27/2025 Narrative 07/27/2025 7:26 PM CDT For Patients: Results are automatically released to your [facility] account once available, in compliance with federal regulations. This means that you may see your results before your provider has had a chance to review them. Please allow 2-3 business days for your provider to comment on the results. XR DXA Bone Mineral Density (BMD) EXAM LOCATION: [facility] [address] [facility] [address] PATIENT NAME: Heather Patton DATE OF : [...] two scanners are made by the same pick pulling machine operator. PROCEDURE: Dual-energy x-ray absorptiometry performed with [...] Osteoporosis: T-score at or below -2.5 SD Danielle Taylor MD DEXA Final Resul t * LIPID PANEL W REFLEX MEASURED LDL (09/17/2023 10:54 AM BONE DRIER) [facility] CHOLESTEROL,TOTAL 174 100 - 199 mg/dL 09/17/2023 6:19 PM BONE DRIER [facility] Comment: Cholesterol, Total Reference Ranges Desirable <200 mg/dL Borderline 200-239 mg/dL High >=240 mg/dL TRIGLYCERIDES 48 <150 mg/dL 09/17/2023 6:19 PM BONE DRIER [facility] HDL CHOLESTEROL 85 >40 mg/dL 6:19 PM BONE DRIER [facility] NON-HDL CHOLESTEROL 89 <145 mg/dl 09/17/2023 6:19 PM BONE DRIER [facility] CHOL/HDL RATIO 2.05 <4.50 09/17/2023 6:19 PM BONE DRIER [facility] LDL CHOLESTEROL 79 <=130 mg/dL 09/17/2023 6:19 PM BONE DRIER [facility] VLDL CHOLESTEROL 10 <=30 mg/dL 09/17/2023 6:19 PM BONE DRIER [facility] PROVIDER ORDERED STATUS RANDOM 09/17/2023 6:19 PM BONE DRIER [facility] Blood BLOOD SPECIMEN / Unknown Venipuncture / Unknown 09/17/2023 10:54 AM BONE DRIER 09/17/2023 10:56 AM BONE DRIER Danielle Taylor MD CHEMISTRY Final Resul t [facility] [address] [place] [address], * ANTI HCV (06/12/2023 4:06 PM CDT) HEPATITIS C ANTIBODY Non-Reacti ve Non-React darci 06/15/2023 11:33 PM CDT [facility] Comment:Please note, per www .CDC.gov: If [...] Galvez MD SEND OUTS Final Res ult [facility] SENDOUT INTERNAL ZIP [address] [place] [address] * COLONOSCOPY (08/13/2022 7:50 AM BONE DRIER) 08/13/2022 7:50 AM BONE DRIER Narrative Transcriptions Tonny Wolfe MD - 08/13/2022 [...] candidate for conscious sedation. The endoscope [id number] was passed through the anus andadvanced to [...] 7:50 AM Procedure Code(s): --- Professional --- 55304, Colonoscopy, flexible; with removalof tumor(s), polyp(s), or other lesion(s) bysnare technique Diagnosis Code(s): --- Professional --- Z86.010, Personal history of colonicpolyps D12.3, Benign neoplasm of transverse colon (hepatic flexure or splenic flexure) D12.5, Benign neoplasm of sigmoid colon K57.30, Diverticulosis of large intestine without perforation or abscess withoutbleeding CPT copyright 2020 [employer] [place] [employer]. All rights reserved. The codes documented in this report are preliminary and upon manager business process reviewmay be revised to meet current compliance requirements. Scope In: 8:09:22 AM Scope Withdrawal Time 0 hours 15 minutes 5 seconds Scope Out: 8:30:54 AM us Tonny Wolfe MD PROCEDURE ORD Final Res ult from Last 3 Months or Most Recently Relevant to Health Maintenance Insurance MEDICARE PART A HB ONLY MEDICARE PART B HB ONLY MEDICARE PB ONLY [facility]UE [facility] Care Teams Trust And Estates Attorney Relationship Specialty Start Date End Date Danielle Taylor MD [address] [place] [address] PCP - General Family Practice 04/27/17 Guero Amador Oncology Hematology and Oncology 08/30/12 [place] [address] [place] [address] Endocrinology Endocrinology 07/27/25
--- OUTSIDE RECORDS SUMMARY | 2025-09-04 18:55 | XMS_ITS | Continuity of Care Document ---
Author Organization [facility] Address [address] [place] [address] Assessment Encounter Date Assessment Date Assessment LastModified [...] Organization Details Recorded Time Lumbar radiculopat hy [id number] Active 2024 Bashir Andersonjesus alberto, [place] [address] [facility] [address], [place], [address], [facility] 14:10:15 Disorder of lumbar spine 645198446 Active 2024 Bashir García Monicajesus alberto, [place] [address] [facility], [place], [address], [facility] 14:10:15 Lumbar segmental dysfunction 594535817 Active 2024 Bashir Leonard, [place] [address] [facility], [place], [address], [facility] 14:10:15 Lesion of lumbar spine 322183490 Active 2024 Bashir Andersonjesus alberto, [place] [address] [facility] [facility], [place], [address], [facility] 14:10:15 Low back strain 359564348 Active 2024 Bashir Andersonjesus alberto, [place] [address] [facility] [address] [facility], [place], [address], [facility] 14:10:15 Somatic dysfunction of sacral spine 600937490 Active 2024 Bashir Ricky Monicajesus alberto, [place] [address] [facility] [facility], [place], [address], [facility] 14:10:15 Spasm of muscle of lower back 2520099266439 9105 Active 2024 Bsahir Andersonm, [place] [address] [facility] [address], [place], [address], [facility] 14:10:15 Neck pain 32239805 Active 2024 Bashir Leonard DC [address] [facility], [facility] [place], [address], [facility] 14:10:25 Thoracic segmental dysfunction 800359972 Active 2024 Bashir Leonard DC [address] [facility] [address], [facility] [place], [address], [facility] 14:10:25 Cervical segmental dysfunction 542703929 Active 2024 Bashir Leonard DC [address] [facility] [address], [facility] [place], [address], [facility] 14:10:25 Problem Notes None recorded. Procedures Surgical History Date Name Laterality Status Provider Name and Address Organization Details Recorded Time 49319: Spinal manipulation , 3 to 4 regions completed Vishnu [place], [place] [address] [facility] [address], [place], [address], [facility] 08/24/2025 19:22:29 90370: Spinal manipulation , 3 to 4 regions completed Bashir Leonard[place] [address] [facility] [address], [place], [address], [facility] 08/21/2025 12:49:59 17568: Spinal manipulation , 3 to 4 regions completed Bashir [place] [address] [facility] [address], [place], [address], [facility] 08/18/2025 14:13:26 Imaging Results None recorded. Procedure Notes None recorded. Medical Equipment None Reported. Allergies Allergen ID Allergen Name Allergen Category Reaction Reaction Severity Criticality Documentation Date Start Date Code Code System Note Provider Name and Address Organization Details Recorded Time 33672 levofloxa dimas medicatio n Not available Not available Not available 08/18/20252024 22534 RxNorm unrec ogniz ed react ion (text : Eryth ayaz, code: 85344 1003) (from [facility] e) Not Available vinod - External [...] ICD10 Code Diagnosis IMO Codes Diagnosis Note [id number] Bashir Leonard DC [facility] [address] [facility] [facility] [place] [address] 08/18/2025 12:09:29 08/18/2025 15:03:30 Lumbar radiculopathy 304289784 M54.16 Spasm of m uscle of lower back 8790904936 7814612 M62.830 Lumbar seg mental dysfunction 480131341 M99.03 Somatic dy sfunction of sacral spine 117778464 M99.04 Disorder o f lumbar spine 900362800 M53.9 Lesion of lumbar spine 176855964 M99.9 Low back strain 52852783 1 S39.012A S39.012D Cervical s egmental dysfunction 124602007 M99.01 Neck pain 21545746 M54.2 Thoracic s egmental dysfunction 450651121 M99.02 [id number] Bashir Leonard DC [facility] [address] [facility] [address] [place] [address] 08/21/2025 09:37:20 08/21/2025 15:41:20 Lumbar radiculopathy 328121968 M54.16 Spasm of m uscle of lower back 4336714777 9837150 M62.830 Lumbar seg mental dysfunction 410798285 M99.03 Somatic dy sfunction of sacral spine 097787219 M99.04 Disorder o f lumbar spine 087684818 M53.9 Lesion of lumbar spine 958634051 M99.9 Low back strain 16127222 1 S39.012A S39.012D Cervical s egmental dysfunction 197129877 M99.01 Neck pain 29496929 M54.2 Thoracic s egmental dysfunction 190776776 M99.02 Health Concerns Section Related Observation LastModified by Organization Detai ls LastModified Time None Recorded Concern Status LastModified by Organization Details LastModified Time None Recorded Payers Encounter Date Sequence Insurance Name Policy Number Policy Islas Covered Member ID Islas Member ID Guarantor Name 08/21/2025 1 [place]: [employer] Heather Patton [id number] 1 Heather Jocelynnjohn 08/21/2025 2 [facility] [id number] Heather Cochran Pooja [id number] Heather Patton Notes Date Note Type Note [...] factors, patient reportsrest. Bashir Leonard DC [address] [facility], [place], [address], [facility] 08/21/2025 12:52:01 OBGyn Episode No OBEpisode recorded.
--- NOTE | 2025-09-04 19:13 | CRLHL7_ITS ---
For Patients: As a result of the Century Cures Act, medical imaging exams and procedure reports are released immediately into your electronic medical record. You may view this report before your referring provider. If you have questions, please contact your health care provider. Indication: Chest pain Technique: Dissection protocol. Noncontrast CT of the chest and postcontrast CTA of the chest, abdomen, and pelvis with multiplanar reformats following 95 mL Isovue 370 IV. Axial MIP images obtained. Comparison: CTA chest performed 08/28/2025, CT thoracolumbar spine performed 06/05/2025 Findings: Chest: Lungs: No consolidation. No effusion. No pneumothorax. Right basilar atelectasis. Mediastinum: No acute abnormality appreciated. Trace aortic atherosclerosis. No pulmonary embolism detected. Lymph nodes: No gross lymphadenopathy. Soft tissues: No acute abnormality appreciated. Bones: No acute abnormality appreciated. Chronic thoracic compression fractures. Degenerative changes of the spine and shoulders. Abdomen and Pelvis: Hepatobiliary: No significant parenchymal abnormality is appreciated. Spleen: Unremarkable. Pancreas: No acute abnormality appreciated. Adrenal glands: No acute abnormality appreciated. Kidneys: No significant parenchymal abnormality appreciated. No visualized calculi. No hydronephrosis. Bowel: No obstruction. Diverticulosis. No focal perienteric or pericolonic stranding is appreciated. Vascular: No acute abnormality appreciated. Trace atherosclerosis. Lymph nodes: No gross lymphadenopathy. Peritoneum: No free air. No free fluid. : No acute abnormality appreciated. Soft tissues: No acute abnormality appreciated. Bones: No acute fracture. No lytic or blastic lesion. Degenerative changes of the spine and pelvis. Impression: Chronic findings as above with no acute abnormality appreciated. Please note that all CT scans at this facility use dose modulation, iterative reconstruction, and/or weight-based dosing when appropriate to reduce radiation dose to as low as reasonably achievable. Dictated by Leno Urrutia MD @ 09/04/2025 7:59:25 PM (Electronically Signed)
[2025-09-04 19:24] LABS: Hematocrit* 40.8 % (33.0-51.0); Hemoglobin* 13.2 gm/dL (12.0-16.0); Immature Granulocytes Abs Auto 0.02 K/uL (0.00-0.30); Immature Granulocytes Pct Auto 0.3 %; Lymphocytes Absolute Auto 1.70 K/uL (0.90-2.90); Mean Corpuscular HGB Conc 32 gm/dL (32-36); Mean Corpuscular Hemoglobin 32 pg (26-34); Mean Corpuscular Volume 98 fL (80-100); RDW Coefficient of Variation % 12.6 % (11.5-15.5); Red Blood Count* 4.18 m/uL (4.00-5.20); White Blood Count* 6.78 K/uL (4.50-11.00)
[2025-09-04 19:26] LABS: Lactate* 0.8 mmol/L (0.5-1.9)
[2025-09-04 19:29] LABS: Slide Review Reflex No
--- NOTE | 2025-09-04 19:29 | ED.GENADULT ---
HPI - General Adult General Chief complaint: Chest Pain Stated complaint: Potential Heart Attack Time Seen by Provider: 09/04/25 19:02 Source: patient Mode of arrival: ambulatory Limitations: no limitations History of Present Illness HPI narrative: 75-year-old female presenting today with chest pain. Pain started approximately 1 hour and 20 minutes ago. She states that she straightened out her house today. Was doing fine min was sitting on the couch when the pain started. She states that it is located deep in her chest and radiates right into her upper left back. She took a friend's sublingual nitro and that helped a little with the pain is definitely still present, it takes her breath away. Makes her feels very anxious. Movement is uncomfortable, deep breaths are uncomfortable. Unclear if moving actually makes the pain worse or not. Related Data Home Medications ?Medication ?Instructions ?Recorded ?Confirmed malaria pills PO 05/04/24 05/10/25 Previous Rx's ?Medication ?Instructions ?Recorded azelastine 0.05 % eye drops 1 drp ophthalmic (eye) BID #6 mL 05/04/24 lidocaine 5 % topical patch 1 patch topical DAILY #15 ea 05/31/25 (Lidoderm) apixaban 5 mg (74 tabs) tablets in See Rx Instructions PO .COMPLEX 08/28/25 a dose pack (Eliquis DVT-PE Treat #74 ea 30D Start) methylprednisolone 4 mg tablets in See Rx Instructions PO .COMPLEX 09/02/25 a dose pack (Medrol (Mukesh)) #21 ea Allergies Allergy/AdvReac Type Severity Reaction Status Date / Time giovana flavor Allergy Severe Swelling Verified 08/28/25 17:03 of Lip/Tongue/Throat levofloxacin (From Levaquin) Allergy Verified 08/28/25 17:03 Review of Systems Status of ROS: Reports: 10 or more systems reviewed and unremarkable except as noted in History and below [facility] Medical History Fracture of left wrist ?S62.102A - Fracture of unspecified carpal bone, left wrist, initial encounter for closed fracture (ICD-10) Cancer of left breast (05/2008) ?C50.912 - Malignant neoplasm of unspecified site of left female breast (ICD-10) Surgical History Previous section ?Z98.891 - History of uterine scar from previous surgery (ICD-10) History of appendectomy ?Z90.49 - Acquired absence of other specified parts of digestive tract (ICD-10) History of lumpectomy of left breast (06/03/08) ?Z98.890 - Other specified postprocedural states (ICD-10) History of reduction of closed fracture (02/03/19) ?Z87.81 - Personal history of (healed) traumatic fracture (ICD-10) Family History Maternal Grandmother Colon cancer Social History Smoking Status: Never smoker Do you use any of these nicotine containing products: None Second hand tobacco smoke exposure: No How often do you have a drink containing alcohol: monthly or less AUDIT-C Alcohol total score: 1 Non-prescribed substance use: denies use service: No Exam Narrative: Exam Narrative: Well-nourished well-developed patient , tachycardic and anxious. Alert and oriented x3. Answers questions appropriately. Thoughts are goal oriented and rational. No tangential or magical thinking noted. Patient speaks in full sentences without needing to catch her breath. HEENT: Normocephalic atraumatic. Pupils are equally round reactive to light. Extraocular muscles are intact. Conjunctivae are moist without any icterus noted. Moist mucous membranes. Cardiovascular: Tachycardic, no murmurs. Lungs: Decreased breath sounds bilaterally. Abdomen: Soft and nontender nondistended with normal bowel sounds. Extremities: Trace edema bilaterally. Skin: Well perfused without any obvious rashes. Const: Vital Signs, click to edit/add: Vital Signs - 24 hr 09/04/25 19:05 09/04/25 19:10 09/04/25 19:13 Pulse Rate 111 H Pulse Rate [Pulse Oximeter] 113 H Respiratory Rate 24 22 Blood Pressure Blood Pressure [Ri ght Upper Arm] 137/93 H Pulse Oximetry 92 92 93 Oxygen Delivery Me thod Room Air 09/04/25 19:15 09/04/25 19:30 09/04/25 19:50 Pulse Rate 106 H 104 H 93 Pulse Rate [Pulse Oximeter] Respiratory Rate 14 15 Blood Pressure Blood Pressure [Ri ght Upper Arm] Pulse Oximetry 93 92 94 Oxygen Delivery Me thod 09/04/25 19:52 09/04/25 20:00 09/04/25 20:15 Pulse Rate 91 92 94 Pulse Rate [Pulse Oximeter] Respiratory Rate 18 25 H 15 Blood Pressure 125/83 Blood Pressure [Ri ght Upper Arm] Pulse Oximetry 94 94 92 Oxygen Delivery Me thod Room Air 09/04/25 20:30 Pulse Rate 100 Pulse Rate [Pulse Oximeter] Respiratory Rate 39 H Blood Pressure Blood Pressure [Ri ght Upper Arm] Pulse Oximetry 93 Oxygen Delivery Me thod Course Course ED Course: EKG shows sinus tachycardia with a pulse of 107. IV established. Patient given oral aspirin and IV Ativan. Differential diagnoses includes acute coronary syndrome, enlarging PE, aortic dissection. CT, dissection protocol, does not show any abnormalities. High sensitivity troponins within normal limits. Labs are unremarkable. Did after Ativan patient's pulse did come down into the 90s. She did seem much more relaxed as she was quite anxious on arrival. Did repeat EKG and troponin which were both unremarkable. Repeat troponin showed normal sinus rhythm with a pulse of 89. At this time patient's pain a completely resolved and she was symptom free. Vital Signs Vital signs: Initial Vital Signs Pulse Rate 113 H 09/04/25 19:05 Respiratory Rate 24 09/04/25 19:05 Blood Pressure 137/93 H 09/04/25 19:05 Blood Pressure Mean 107 H 09/04/25 19:05 Blood Pressure Position Supine 09/04/25 19:05 Pulse Oximetry 92 09/04/25 19:05 Oxygen Delivery Method Room Air 09/04/25 19:05 Vital Signs Pulse Rate 113 H 09/04/25 19:05 Respiratory Rate 24 09/04/25 19:05 Blood Pressure 137/93 H 09/04/25 19:05 Pulse Oximetry 92 09/04/25 19:05 Oxygen Delivery Method Room Air 09/04/25 19:05 Pulse Rate 100 09/04/25 20:30 Respiratory Rate 39 H 09/04/25 20:30 Blood Pressure 125/83 09/04/25 19:52 Pulse Oximetry 93 09/04/25 20:30 Oxygen Delivery Method Room Air 09/04/25 19:52 Medications Administered Medications: Discontinued Medications Generic Name Dose Route Start Last Admin Trade Name Irma PRN Reason Stop Dose Admin Aspirin 324 mg 09/04/25 19:13 09/04/25 19:56 Aspirin 81 Mg Tab.Chew PO 09/04/25 19:14 324 mg ONCE ONE Administration Lorazepam 0.5 mg 09/04/25 19:13 09/04/25 19:56 Lorazepam 2 Mg/Ml Inj IVP 09/04/25 19:14 0.5 mg ONCE ONE Administration Medical Decision Making MDM Narrative Medical decision making narrative: 75-year-old female with chest and back pain, question musculoskeletal discomfort, anxiety. No evidence of life-threatening diagnoses seen today. Recommend close outpatient follow-up. Lab Data Lab results reviewed: Yes I reviewed the patient's lab results Labs: Lab Results 09/04/25 09/04/25 09/04/25 Range/Units 19:10 19:14 19:47 WBC 6.78 (4.50-11.00) K/uL RBC 4.18 (4.00-5.20) m/uL Hgb 13.2 (12.0-16.0) gm/dL Hct 40.8 (33.0-51.0) % MCV 98 (80-100) fL MCH 32 (26-34) pg MCHC 32 (32-36) gm/dL RDW Coeff of Radha 12.6 (11.5-15.5) % Plt Count 286 (140-440) K/uL Neut % (Auto) 59.9 (42.0-72.0) % Lymph % (Auto) 25.1 (20-44) % Lipscomb % (Auto) 9.7 (0.0-11.0) % Eos % (Auto) 4.3 (0.0-7.0) % Baso % (Auto) 0.7 (0.0-3.0) % Neut # (Auto) 4.06 (1.7-7.0) K/uL Lymph # (Auto) 1.70 (0.90-2.90) K/uL Lipscomb # (Auto) 0.70 (0.00-0.90) K/UL Eos # (Auto) 0.29 (0.00-0.50) K/uL Baso # (Auto) 0.05 (0.00-0.30) K/uL Abs Immat Gran (auto) 0.02 (0.00-0.30) K/uL Imm/Tot Granulo (auto) 0.3 % Sodium 134 L (135-149) mmol/L Potassium 3.9 (3.6-5.1) mmol/L Chloride 93 L (96-114) mmol/L Carbon Dioxide 30 (20-32) mmol/L Anion Gap 11 (7-15) mEq/L BUN 20 (7-30) mg/dL Creatinine 0.9 (0.5-1.5) mg/dL Estimated Creat Clear 40.21 Estimated GFR 67 ml/min Glucose 91 (60-115) mg/dL Lactate 0.8 (0.5-1.9) mmol/L Calcium 9.5 (8.4-10.6) mg/dL Magnesium 2.1 (1.5-2.6) mg/dL Total Bilirubin 0.7 (0.1-1.5) mg/dL Direct Bilirubin 0.2 (0.0-0.5) mg/dL AST 29 (12-35) U/L ALT 21 (4-35) U/L Alkaline Phosphatase 97 (40-150) U/L Troponin I < 0.01 (0.01-0.04) ng/mL POC Troponin I High Sensi 6.9 (2.9-13.0) pg/mL C-Reactive Protein < 0.5 L (0.5-1.0) mg/dL Total Protein 8.4 H (6.0-8.3) g/dL Albumin 4.6 (3.3-5.0) g/dL Lipase 101 (23-300) U/L Procalcitonin 0.05 (<0.50) ng/mL SARS-CoV-2 (PCR) Negative SARS-CoV-2 (Negative) Influenza Type A (PCR) Negative PCR FLU A (Negative) Influenza Type B (PCR) Negative PCR FLU B (Negative) RSV (PCR) Negative PCR RSV (Negative) 09/04/25 Range/Units 20:52 WBC (4.50-11.00) K/uL RBC (4.00-5.20) m/uL Hgb (12.0-16.0) gm/dL Hct (33.0-51.0) % MCV (80-100) fL MCH (26-34) pg MCHC (32-36) gm/dL RDW Coeff of Radha (11.5-15.5) % Plt Count (140-440) K/uL Neut % (Auto) (42.0-72.0) % Lymph % (Auto) (20-44) % Lipscomb % (Auto) (0.0-11.0) % Eos % (Auto) (0.0-7.0) % Baso % (Auto) (0.0-3.0) % Neut # (Auto) (1.7-7.0) K/uL Lymph # (Auto) (0.90-2.90) K/uL Lipscomb # (Auto) (0.00-0.90) K/UL Eos # (Auto) (0.00-0.50) K/uL Baso # (Auto) (0.00-0.30) K/uL Abs Immat Gran (auto) (0.00-0.30) K/uL Imm/Tot Granulo (auto) % Sodium (135-149) mmol/L Potassium (3.6-5.1) mmol/L Chloride (96-114) mmol/L Carbon Dioxide (20-32) mmol/L Anion Gap (7-15) mEq/L BUN (7-30) mg/dL Creatinine (0.5-1.5) mg/dL Estimated Creat Clear Estimated GFR ml/min Glucose (60-115) mg/dL Lactate (0.5-1.9) mmol/L Calcium (8.4-10.6) mg/dL Magnesium (1.5-2.6) mg/dL Total Bilirubin (0.1-1.5) mg/dL Direct Bilirubin (0.0-0.5) mg/dL AST (12-35) U/L ALT (4-35) U/L Alkaline Phosphatase (40-150) U/L Troponin I (0.01-0.04) ng/mL POC Troponin I High Sensi 6.6 (2.9-13.0) pg/mL C-Reactive Protein (0.5-1.0) mg/dL Total Protein (6.0-8.3) g/dL Albumin (3.3-5.0) g/dL Lipase (23-300) U/L Procalcitonin (<0.50) ng/mL SARS-CoV-2 (PCR) (Negative) Influenza Type A (PCR) (Negative) Influenza Type B (PCR) (Negative) RSV (PCR) (Negative) Imaging Data CT Chest/Ab/Pelvis: Attestation: I have reviewed the pertinent imaging results. Radiologist's impression: Indication: Chest pain Technique: Dissection protocol. Noncontrast CT of the chest and postcontrast CTA of the chest, abdomen, and pelvis with multiplanar reformats following 95 mL Isovue 370 IV. Axial MIP images obtained. Comparison: CTA chest performed 08/28/2025, CT thoracolumbar spine performed 06/05/2025 Findings: Chest: Lungs: No consolidation. No effusion. No pneumothorax. Right basilar atelectasis. Mediastinum: No acute abnormality appreciated. Trace aortic atherosclerosis. No pulmonary embolism detected. Lymph nodes: No gross lymphadenopathy. Soft tissues: No acute abnormality appreciated. Bones: No acute abnormality appreciated. Chronic thoracic compression fractures. Degenerative changes of the spine and shoulders. Abdomen and Pelvis: Hepatobiliary: No significant parenchymal abnormality is appreciated. Spleen: Unremarkable. Pancreas: No acute abnormality appreciated. Adrenal glands: No acute abnormality appreciated. Kidneys: No significant parenchymal abnormality appreciated. No visualized calculi. No hydronephrosis. Bowel: No obstruction. Diverticulosis. No focal perienteric or pericolonic stranding is appreciated. Vascular: No acute abnormality appreciated. Trace atherosclerosis. Lymph nodes: No gross lymphadenopathy. Peritoneum: No free air. No free fluid. : No acute abnormality appreciated. Soft tissues: No acute abnormality appreciated. Bones: No acute fracture. No lytic or blastic lesion. Degenerative changes of the spine and pelvis. Impression: Chronic findings as above with no acute abnormality appreciated. ECG Data Attestation: I personally reviewed and interpreted this ECG as follows: Discharge Plan Discharge Clinical Impression: Atypical chest pain Patient Disposition: Home, Self-Care Condition: Stable Additional Instructions: Recommend close follow-up with your primary care doctor sometime this week to go over your symptoms and to see how you are feeling. Prescriptions: No Action malaria pills PO azelastine 0.05 % drops 1 drp ophthalmic (eye) BID Qty: 6 0RF lidocaine [Lidoderm] 5 % adhesive patch,medicated 1 patch topical DAILY Qty: 15 0RF Rx Instructions: leave on most painful area for up to 12 hrs methylprednisolone [Medrol (Mukesh)] 4 mg tablets,dose pack See Rx Instructions .ROUTE .COMPLEX Qty: 21 0RF Rx Instructions: orally per package directions Carmenzapalomotressa DVT-PE Treat 30D Start 5 mg (74 tabs) tablets,dose pack See Rx Instructions .ROUTE .COMPLEX Qty: 74 0RF Rx Instructions: orally per package directions Follow Up/Referrals: Danielle Taylor MD [Primary Care Provider, Family Practice] Stand Alone Forms: lifeaction gamesth Info Instructions
[2025-09-04 19:54] LABS: Albumin* 4.6 g/dL (3.3-5.0); Chloride* 93 mmol/L (96-114); Sodium* 134 mmol/L (135-149)
[2025-09-04 19:55] LABS: Potassium* 3.9 mmol/L (3.6-5.1)
[2025-09-04] MEDS: ASPIRIN 81 MG TAB.CHEW 324 MG PO (19:56)
[2025-09-04 19:57] LABS: Alanine Aminotransferase* 21 U/L (4-35); Alkaline Phosphatase* 97 U/L (40-150); Anion Gap 11 mEq/L (7-15); Aspartate Amino Transferase* 29 U/L (12-35); Bilirubin Direct* 0.2 mg/dL (0.0-0.5); Bilirubin Total* 0.7 mg/dL (0.1-1.5); Blood Urea Nitrogen* 20 mg/dL (7-30); Calcium* 9.5 mg/dL (8.4-10.6); Carbon Dioxide* 30 mmol/L (20-32); Creatinine* 0.9 mg/dL (0.5-1.5); Est. Creatinine Clearance* 40.21; Estimated Glomerular Filt Rate 67 ml/min; Glucose* 91 mg/dL (60-115); Total Protein* 8.4 g/dL (6.0-8.3)
[2025-09-04 20:13] LABS: Procalcitonin* 0.05 ng/mL (<0.50)
[2025-09-04 20:45] LABS: PCR FLU A Negative PCR FLU A (Negative); PCR FLU B Negative PCR FLU B (Negative); PCR RSV Negative PCR RSV (Negative); SARS PCR* Negative SARS-CoV-2 (Negative)
== END 2025-09-04 22:01 | disposition home or self-care (01) ==
PROVIDERS: Emergency Provider Family Medicine; PCP Family Medicine
DX: R07.89 Other chest pain (principal); M54.9 Dorsalgia, unspecified; R00.0 Tachycardia, unspecified; F41.9 Anxiety disorder, unspecified
CPT/HCPCS: 36415; 71275; 74174; 80048; 80076; 83605; 83690; 83735; 84145; 84484; 85025; 86140; 87631; 93005; 94761; 96374; 99284; 99285; A9270; J2060; Q9967